=== PATIENT | male | born 1930 | race Caucasian/White ===

== ENCOUNTER 2018-07-07 11:01 | Emergency (ER) | payer OTHER, BC ==
[2018-07-07 11:25] VITALS: BMI 21.7
[2018-07-07] MEDS ORDERED: ASPIRIN 325 MG TABLET PO ONE (12:19)
--- NOTE | 2018-07-07 12:20 | PDOC ---
History of Present Illness - General History Source: Patient Exam Limitations: No Limitations - History of Present Illness Initial Comments: 07/07/18 18:02 Patient is an 88-year-old male with past medical history of a. A. fib, high blood pressure, hyperlipidemia, BPH, who presents to the ER today for belching and chest pain starting at 8 AM. Patient reports eating breakfast as he usually does when he experienced belching after finishing his meal. He also reports chest pain. He states he has never had pain like this before. He states the pain is on his left side. Nothing makes the pain better or worse. Denies cardiac history or stents. Denies fevers, chills, shortness of breath, difficulty breathing, edema, nausea, vomiting and diarrhea. <Khadijah Roberson - Last Filed: 07/07/18 19:09> <Lucinda Soto - Last Filed: 07/07/18 23:07> - General Chief Complaint: Chest Pain Stated Complaint: CHEST PAIN Time Seen by Provider: 07/07/18 12:17 Past History - Travel Traveled outside of the country in the last 30 days: No Close contact w/someone who was outside of country & ill: No - Past Medical History Anemia: Yes Asthma: No Cancer: Yes (COLON) Cardiac Disorders: Yes (A-FIB) CVA: No COPD: No CHF: No Dementia: No Diabetes: Yes (NO MEDS) GI Disorders: Yes (COLON CANCER,DIVERTICULOSIS,GERD.REFLUX,HEMORRHOIDS,HIATAL HERNIA,COLON YASMIN) Disorders: No HTN: Yes Hypercholesterolemia: Yes Liver Disease: No Seizures: No Thyroid Disease: No - Surgical History Abdominal Surgery: Yes (COLON RESECTION) Appendectomy: No Cardiac Surgery: Yes (CARDIAC CATH-10/18/12) Cholecystectomy: No Lung Surgery: No Neurologic Surgery: No Orthopedic Surgery: No - Immunization History Immunization Up to Date: Yes - Suicide/Smoking/Psychosocial Hx Smoking Status: No Smoking History: Never smoked Number of Cigarettes Smoked Daily: 0 Hx Alcohol Use: No Drug/Substance Use Hx: No Substance Use Type: None <Khadijah Roberson - Last Filed: 07/07/18 19:09> <Lucinda Soto - Last Filed: 07/07/18 23:07> - Past Medical History Allergies/Adverse Reactions: Allergies Allergy/AdvReac Type Severity Reaction Status Date / Time No Known Drug Allergies Allergy Verified 10/24/15 07:50 Home Medications: Ambulatory Orders Tamsulosin HCl 0.4 mg PO HS 09/30/12 Metoprolol Tartrate [Lopressor -] 12.5 mg PO BID 08/02/13 Simvastatin [Zocor] 40 mg PO HS 08/04/13 Cholecalciferol (Vitamin D3) [Vitamin D] 2,000 unit PO DAILY 10/15/15 Docusate Sodium [Colace -] 200 mg PO HS 10/15/15 Finasteride [Proscar -] 5 mg PO HS 10/15/15 Omeprazole [Prilosec] 40 mg PO HS 10/15/15 Aspirin [ASA -] 81 mg PO Q2D 10/24/15 Review of Systems - Review of Systems Able to Perform ROS?: Yes Comments:: 07/07/18 12:18 CONSTITUTIONAL: Absent: fever, chills, diaphoresis, generalized weakness, malaise, loss of appetite HEENT: Absent: rhinorrhea, nasal congestion, throat pain, throat swelling, difficulty swallowing, mouth swelling, ear pain, eye pain, visual Changes CARDIOVASCULAR: Present: chest pain, belching Absent: loss of consciousness, palpitations, irregular heart rate, peripheral edema RESPIRATORY: Absent: cough, shortness of breath, dyspnea with exertion, orthopnea, wheezing, stridor, hemoptysis GASTROINTESTINAL: Absent: abdominal pain, abdominal distension, nausea, vomiting, diarrhea, constipation, melena, hematochezia GENITOURINARY: Absent: dysuria, frequency, urgency, hesitancy, hematuria, flank pain, genital pain MUSCULOSKELETAL: Absent: myalgia, arthralgia, joint swelling SKIN: Absent: rash, itching, pallor HEMATOLOGIC/IMMUNOLOGIC: Absent: easy bleeding, easy bruising, lymphadenopathy, frequent infections ENDOCRINE: Absent: unexplained weight gain, unexplained weight loss, heat intolerance, cold intolerance NEUROLOGIC: Absent: headache, focal weakness or paresthesias, dizziness, unsteady gait, seizure, mental status changes, bladder or bowel incontinence PSYCHIATRIC: Absent: anxiety, depression, suicidal or homicidal ideation, hallucinations. Is the patient limited Lebanese proficient: No <Khadijah Roberson - Last Filed: 07/07/18 19:09> *Physical Exam - Vital Signs Last Vital Signs Temp Pulse Resp BP Pulse Ox 98.2 F 70 18 123/66 98 07/07/18 11:23 07/07/18 11:23 07/07/18 11:23 07/07/18 11:23 07/07/18 11:23 - Physical Exam Comments: 07/07/18 12:18 GENERAL: Well developed, well nourished. Awake and alert. No acute distress. HEENT: Normocephalic, atraumatic. PERRLA, EOMI. No conjunctival pallor. Sclera are non- icteric. Moist mucous membranes. Oropharynx is clear. NECK: Supple. Full ROM. No JVD. Carotid pulses 2+ and symmetric, without bruits. No thyromegaly. No lymphadenopathy. CARDIOVASCULAR: Regular rate and rhythm. No murmurs, rubs, or gallops. Distal pulses are 2+ and symmetric. PULMONARY: No evidence of respiratory distress. Lungs clear to auscultation bilaterally. No wheezing, rales or rhonchi. ABDOMINAL: Soft. Non-tender. Non-distended. No rebound or guarding. No organomegaly. Normoactive bowel sounds. MUSCULOSKELETAL Normal range of motion at all joints. No bony deformities or tenderness. No CVA tenderness. EXTREMITIES: No cyanosis. No clubbing. No edema. No calf tenderness. SKIN: Warm and dry. Normal capillary refill. No rashes. No jaundice. NEUROLOGICAL: Alert, awake, appropriate. Cranial nerves 2-12 intact. No deficits to light touch and temperature in face, upper extremities and lower extremities. No motor deficits in the in face, upper extremities and lower extremities. Normoreflexic in the upper and lower extremities. Normal speech. Toes are down- going bilaterally. Gait is normal without ataxia. PSYCHIATRIC: Cooperative. Good eye contact. Appropriate mood and affect. <Khadijah Roberson - Last Filed: 07/07/18 19:09> - Vital Signs Last Vital Signs Temp Pulse Resp BP Pulse Ox 98.2 F 70 18 123/66 98 07/07/18 11:23 07/07/18 11:23 07/07/18 11:23 07/07/18 11:23 07/07/18 11:23 <Lucinda Soto - Last Filed: 07/07/18 23:07> Moderate Sedation - Procedure Monitoring Vital Signs: Procedure Monitoring Vital Signs Temperature 98.2 F 07/07/18 11:23 Pulse Rate 70 07/07/18 11:23 Respiratory Rate 18 07/07/18 11:23 Blood Pressure 123/66 07/07/18 11:23 O2 Sat by Pulse Oximetry (%) 98 07/07/18 11:23 <Khadijah Roberson - Last Filed: 07/07/18 19:09> - Procedure Monitoring Vital Signs: Procedure Monitoring Vital Signs Temperature 98.2 F 07/07/18 11:23 Pulse Rate 70 07/07/18 11:23 Respiratory Rate 18 07/07/18 11:23 Blood Pressure 123/66 07/07/18 11:23 O2 Sat by Pulse Oximetry (%) 98 07/07/18 11:23 <Lucinda Soto - Last Filed: 07/07/18 23:07> Heart Score/ECG Review - History History: Moderately suspicious - Electrocardiogram EKG: Normal - Age Age: >/= 65 - Risk Factors Risk Factors Heart Score: Yes Hx Hypertension Based on the list above the patient has:: 1-2 risk factors - Troponin Troponin: </= normal limit - Score Heart Score - Total: 4 <Khadijah Roberson - Last Filed: 07/07/18 19:09> ED Treatment Course - LABORATORY CBC & Chemistry Diagram: 07/07/18 12:39 07/07/18 12:39 <Khadijah Roberson - Last Filed: 07/07/18 19:09> - LABORATORY CBC & Chemistry Diagram: 07/07/18 12:39 07/07/18 12:39 - ADDITIONAL ORDERS Additional order review: Laboratory Results 07/07/18 07/07/18 12:39 12:39 PT with INR 12.20 INR 1.03 Sodium 141 Potassium 4.7 Chloride 110 H Carbon Dioxide 25 Anion Gap 6 L BUN 39 H Creatinine 1.3 Creat Clearance w eGFR 52.10 Random Glucose 117 H Calcium 9.2 Magnesium 1.7 L Total Bilirubin 0.4 AST 19 ALT 17 Alkaline Phosphatase 98 Creatine Kinase 179 Creatine Kinase Index 3.9 CK-MB (CK-2) 7.0 H Troponin I < 0.02 B-Natriuretic Peptide 734.8 H Total Protein 6.9 Albumin 3.9 07/07/18 12:39 RBC 3.71 L MCV 90.9 MCHC 35.0 RDW 13.4 MPV 8.8 Neutrophils % 82.2 D Lymphocytes % 8.5 D Monocytes % 8.4 Eosinophils % 0.4 D Basophils % 0.5 - Medications Given in the ED: ED Medications Discontinued Medications Generic Name Dose Route Start Last Admin Trade Name Waldemar PRN Reason Stop Dose Admin Al Hydroxide/Mg Hydroxide 30 ml 07/07/18 12:32 07/07/18 12:49 Mylanta Oral Suspension - PO 07/07/18 12:33 30 ml ONCE ONE Administration Aspirin 325 mg 07/07/18 12:19 07/07/18 12:49 Asa - PO 07/07/18 12:20 325 mg ONCE ONE Administration Famotidine/Sodium Chloride 20 mg in 50 mls @ 100 mls/hr 07/07/18 12:32 12:49 Pepcid 20 Mg Premixed Ivpb - IVPB 07/07/18 13:01 100 mls/hr ONCE ONE Administration Sodium Chloride 1,000 mls @ 1,000 mls/hr 07/07/18 14:00 07/07/18 14:17 Normal Saline - IV 07/07/18 14:59 1,000 mls/hr ASDIR STA Administration Morphine Sulfate 2 mg 07/07/18 13:59 07/07/18 14:17 Morphine Injection - IVPUSH 07/07/18 14:00 2 mg ONCE ONE Administration <Lucinda Soto - Last Filed: 07/07/18 23:07> Medical Decision Making - Medical Decision Making 07/07/18 18:03 Patient is an 88-year-old male with past medical history of a. A. fib, high blood pressure, hyperlipidemia, BPH, who presents to the ER today for belching and chest pain starting at 8 AM. -On exam vital signs are stable, patient is afebrile. Regular rate and rhythm on cardiac exam S1-S2 present no murmurs rubs or gallops. Lungs sounds are clear and equal bilaterally. -EKG: Rate 72 bpm, normal sinus rhythm with multiple PVCs. Normal axis, normal intervals. No acute ST-T wave changes. -Chest pain workup initiated. -First troponin is negative. -Given belching and chest pain patient was also sent for CT to rule out dissection. -Creatinine noted to be 1.3. Will hydrate the patient prior and after exam. -Second troponin ordered. -Patient pending CTA results. -Patient reports some relief of symptoms after Pepcid, Zofran and morphine. -Plan for admission; PCP, Dr. Gabriella Bernal 07/07/18 18:55 CTA results given [address] Dr[address] Hardy from radiology; pt with intramural hematoma to the descending aorta. No answer from CT surgery Currently hemodynamically stable. Pt reports relief of pain after nitro. Call placed to [facility] transfer center for CT surgery 07/07/18 19:09 Pt accepted by Cardiac surgery Dr. Cooper. Pt to go to ICU at [place] <Khadijah Roberson - Last Filed: 07/07/18 19:09> - Medical Decision Making 07/07/18 17:02 pt will be hydrated after ct with oral hydration <Lucinda Soto - Last Filed: 07/07/18 23:07> *DC/Admit/Observation/Transfer <Khadijah Roberson - Last Filed: 07/07/18 19:09> - Transfer to Acute Care Facility Receiving Facility: [facility]. <Lucinda Soto - Last Filed: 07/07/18 23:07> Diagnosis at time of Disposition: Intramural aortic hematoma - Discharge Dispostion Disposition: TRANSFER ACUTE CARE/OTHER HOSP - Referrals Referrals: Gabriella Bernal MD [Primary Care Provider] - - Patient Instructions - Post Discharge Activity
[2018-07-07] MEDS ORDERED: MAG HYDROX/AL HYDROX/SIMETH 30 ML UNIT-DOSE CUP PO ONE (12:32)
[2018-07-07] MEDS ORDERED: FAMOTIDINE 20 MG/50 ML IVPB 20 MG/50 ML MG IVPB ONE ×2 (12:32→12:45)
[2018-07-07] MEDS ORDERED: ASPIRIN 325 MG ENTERIC COATED TABLET (FP) ONE (12:44)
[2018-07-07] MEDS ORDERED: MAG HYDROX/AL HYDROX/SIMETH 30 ML UNIT-DOSE CUP ONE (12:45)
[2018-07-07 12:52] LABS: BASO % 0.5 % (0-2.0); EOS % 0.4 % (0-4.5); HEMATOCRIT 33.7 % (35.4-49); HEMOGLOBIN 11.8 GM/dL (11.7-16.9); LYMPH % 8.5 % (8-40); MCH 31.8 pg (25.7-33.7); MEAN CELL VOLUME 90.9 fl (80-96); MEAN PLT VOLUME 8.8 fl (7.5-11.1); MONO % 8.4 % (3.8-10.2); NEUT % 82.2 % (42.8-82.8); PLATELET COUNT 140 K/MM3 (134-434); RBC 3.71 M/mm3 (4.00-5.60); RDW 13.4 % (11.9-15.9); WHITE BLOOD COUNT 8.8 K/mm3 (4.0-10.0)
[2018-07-07 13:21] LABS: INR 1.03 (0.83-1.09); PROTHROMBIN TIME (PATIENT) 12.2 SEC (9.7-13.0)
[2018-07-07 13:24] LABS: ALBUMIN 3.9 g/dl (3.4-5.0); ALK PHOS 98 U/L (45-117); ANION GAP 6 MMOL/L (8-16); BILIRUBIN,TOTAL 0.4 mg/dL (0.2-1); BLOOD UREA NITROGEN 39 mg/dL (7-18); CALCIUM 9.2 mg/dL (8.5-10.1); CHLORIDE 110 mmol/L (98-107); CO2 25 mmol/L (21-32); CREATININE 1.3 mg/dL (0.55-1.3); GLUCOSE,RANDOM 117 mg/dL (74-106); MAGNESIUM 1.7 mg/dL (1.8-2.4); N-TERMINAL BNP 734.8 pg/ml (5-450); POTASSIUM 4.7 mmol/L (3.5-5.1); SGOT/AST 19 U/L (15-37); SGPT/ALT 17 U/L (13-61); SODIUM 141 mmol/L (136-145); TOT PROT 6.9 g/dl (6.4-8.2)
--- NOTE | 2018-07-07 13:46 | EKG ---
Test Reason : Blood Pressure : / mmHG Vent. Rate : 072 BPM Atrial Rate : 072 BPM P-R Int : 168 ms QRS Dur : 092 ms QT Int : 390 ms P-R-T Axes : 064 057 069 degrees QTc Int : 427 ms POOR DATA QUALITY, INTERPRETATION MAY BE ADVERSELY AFFECTED SINUS RHYTHM WITH PREMATURE ATRIAL COMPLEXES MINIMAL VOLTAGE CRITERIA FOR LVH, MAY BE NORMAL VARIANT BORDERLINE ECG WHEN COMPARED WITH ECG OF 15-OCT-2015 08:09, PREMATURE ATRIAL COMPLEXES ARE NOW PRESENT Confirmed by ISSAC GÓMEZ, NEISHA ([id number]) on 07/07/2018 1:46:24 PM Referred By: Confirmed By:NEISHA DAVENPORT MD
[2018-07-07] MEDS ORDERED: morphine CARPU-JECT 2 MG/1 ML DISP.SYRIN IVPUSH ONE ×2 (13:59→16:40)
[2018-07-07] MEDS ORDERED: SODIUM CHLORIDE 1,000 ML IV STA (14:00)
[2018-07-07] MEDS ORDERED: MORPHINE SULFATE 2 MG/ML VIAL ONE ×2 (14:11→17:56)
[2018-07-07] MEDS ORDERED: NITROGLYCERIN SUBLINGUAL 1/200 0.3 MG BTL SL ONE (16:40)
[2018-07-07] MEDS ORDERED: NITROGLYCERIN SUBLINGUAL 1/150 0.4 MG TAB ONE (17:56)
--- NOTE | 2018-07-07 18:51 | PDOC ---
*Physical Exam - Vital Signs Last Vital Signs Temp Pulse Resp BP Pulse Ox 98.2 F 70 18 123/66 98 07/07/18 11:23 07/07/18 11:23 07/07/18 11:23 07/07/18 11:23 07/07/18 11:23 ED Treatment Course - LABORATORY CBC & Chemistry Diagram: 07/07/18 12:39 07/07/18 12:39 - ADDITIONAL ORDERS Additional order review: Laboratory Results 07/07/18 07/07/18 12:39 12:39 PT with INR 12.20 INR 1.03 Sodium 141 Potassium 4.7 Chloride 110 H Carbon Dioxide 25 Anion Gap 6 L BUN 39 H Creatinine 1.3 Creat Clearance w eGFR 52.10 Random Glucose 117 H Calcium 9.2 Magnesium 1.7 L Total Bilirubin 0.4 AST 19 ALT 17 Alkaline Phosphatase 98 Creatine Kinase 179 Creatine Kinase Index 3.9 CK-MB (CK-2) 7.0 H Troponin I < 0.02 B-Natriuretic Peptide 734.8 H Total Protein 6.9 Albumin 3.9 07/07/18 12:39 RBC 3.71 L MCV 90.9 MCHC 35.0 RDW 13.4 MPV 8.8 Neutrophils % 82.2 D Lymphocytes % 8.5 D Monocytes % 8.4 Eosinophils % 0.4 D Basophils % 0.5 - RADIOLOGY Radiology Studies Ordered: Category Date Time Status ABDOMEN & PELVIS CT WITH CONTR [CT] Stat CT Scan 07/07/18 17:02 Taken - Medications Given in the ED: ED Medications Discontinued Medications Generic Name Dose Route Start Last Admin Trade Name Freq PRN Reason Stop Dose Admin Al Hydroxide/Mg Hydroxide 30 ml 07/07/18 12:32 07/07/18 12:49 Mylanta Oral Suspension - PO 07/07/18 12:33 30 ml ONCE ONE Administration Aspirin 325 mg 07/07/18 12:19 07/07/18 12:49 Asa - PO 07/07/18 12:20 325 mg ONCE ONE Administration Famotidine/Sodium Chloride 20 mg in 50 mls @ 100 mls/hr 07/07/18 12:32 12:49 Pepcid 20 Mg Premixed Ivpb - IVPB 07/07/18 13:01 100 mls/hr ONCE ONE Administration Sodium Chloride 1,000 mls @ 1,000 mls/hr 07/07/18 14:00 07/07/18 14:17 Normal Saline - IV 07/07/18 14:59 1,000 mls/hr ASDIR STA Administration Morphine Sulfate 2 mg 07/07/18 13:59 07/07/18 14:17 Morphine Injection - IVPUSH 07/07/18 14:00 2 mg ONCE ONE Administration Morphine Sulfate 2 mg 07/07/18 16:40 07/07/18 17:45 Morphine Injection - IVPUSH 07/07/18 16:41 2 mg ONCE ONE Administration Nitroglycerin 0.3 mg 07/07/18 16:40 07/07/18 17:45 Nitrostat - SL 07/07/18 16:41 0.3 mg ONCE ONE Administration Medical Decision Making - Medical Decision Making 07/07/18 18:49 88yo male with cp and belching today -cp free currently labs reviewed discussed ct findings with Radiology intramural hematoma to the aorta call palced to dr. Thomason - left message call placed to [facility] to discuss with cardio-thoracic surgery 07/07/18 19:15 pt accepted in transfer to [facility] to the CCU under cardio-thoracic surgery *DC/Admit/Observation/Transfer Diagnosis at time of Disposition: Intramural aortic hematoma - Discharge Dispostion Disposition: TRANSFER ACUTE CARE/OTHER HOSP - Referrals Referrals: Gabriella Bernal MD [Primary Care Provider] - - Patient Instructions - Post Discharge Activity
[2018-07-07 18:54] VITALS: TEMP 99.4
[2018-07-07] MEDS ORDERED: LABETALOL HCL 5 MG/1 ML (100MG/20 ML VIAL) IVPUSH ONE (19:09)
[2018-07-07 19:51] VITALS: BP 158/65; PULSE 63
== END 2018-07-07 20:24 | disposition short-term general hospital (02) ==
LOC: JER 11:01
PROC: 3E0337Z Introduction of Electrolytic and Water Balance Substance into Peripheral Vein, Percutaneous Approach (ICD-10-PCS; principal; 2018-07-07)
PROC: 3E033GC Introduction of Other Therapeutic Substance into Peripheral Vein, Percutaneous Approach (ICD-10-PCS; 2018-07-07)
PROC: 3E033NZ Introduction of Analgesics, Hypnotics, Sedatives into Peripheral Vein, Percutaneous Approach (ICD-10-PCS; 2018-07-07)
PROC: 3E033NZ Introduction of Analgesics, Hypnotics, Sedatives into Peripheral Vein, Percutaneous Approach (ICD-10-PCS; 2018-07-07)
DX: I71.00 Dissection of unspecified site of aorta (principal); I10 Essential (primary) hypertension; E11.9 Type 2 diabetes mellitus without complications; I48.91 Unspecified atrial fibrillation; N40.0 Benign prostatic hyperplasia without lower urinary tract symptoms; Z79.82 Long term (current) use of aspirin; Z87.19 Personal history of other diseases of the digestive system; Z98.61 Coronary angioplasty status
CPT/HCPCS: 36415; 71046-TC-FY; 71275-TC; 74177-TC; 80053; 82550; 82553; 83735; 83880; 84484; 85025; 85610; 93005; 93010; 96361; 96365; 96375; 96376; 99284-25; J7030

== ENCOUNTER 2018-08-05 21:24 | Inpatient (IN) | payer OTHER, BC ==
[2018-08-05] MEDS ORDERED: ACETAMINOPHEN 1000 MG/100 ML VIAL (NON FORMULARY) IVPB ONE (22:42)
--- NOTE | 2018-08-05 23:17 | PDOC ---
Attending Attestation - HPI HPI: 08/06/18 00:19 The patient is an 88 year old with a PMH of metastatic colon CA s/p resection, CAD s/p cath, HLD, HTN, DM, aortic mural hematoma, and BPH sent in from [facility] for hematuria after having his vazquez removed. Patient had a fever rectally in the ER. Denies fever, chills, N/V/D/C, or blood in stool. Allergies: NKDA Social: denies toxic habits. - Physicial Exam PE: 08/06/18 00:19 Constitutional: Awake, alert, oriented. No acute distress. Cardiovascular: (+) Tachycardic. Regular rhythm. S1, S2 regular. Distal pulses are 2+ and symmetric. Pulmonary/Chest: No evidence of respiratory distress. Clear to auscultation bilaterally No wheezing, rales or rhonchi. Abdominal: Soft. There is no tenderness. No rebound, guarding or rigidity. No organomegaly. No palpable masses. Good bowel sounds. (+) Distended bladder. : (+) Blood at the meatus. No laceration. Musculoskeletal: No edema. No cyanosis. No clubbing. Full range of motion in all extremities. Nocalf tenderness. Radial/pedal pulses are intact and 2+ bilaterally Skin: (+) Hot to touch. Neurological: Alert and oriented to person, place, and time. Cranial nerves II -XII are grossly intact. Normal speech. Strength is grossly symmetric. No sensory deficits. Psychiatric: Good eye contact. Normal interaction, affect and behavior. - Medical Decision Making <Kayla Chambers - Last Filed: 08/06/18 00:25> - Resident Resident Name: Antonia Miller - ED Attending Attestation I have performed the following: I have examined & evaluated the patient, The case was reviewed & discussed with the resident, I agree w/resident's findings & plan, Exceptions are as noted - Medical Decision Making 08/05/18 23:17 I, Dr. Lucinda Soto, DO, attest that this document has been prepared under my direction and personally reviewed by me in its entirety. I further attest, that it accurately reflects all work, treatment, procedures and medical decision -making performed by me. 08/05/18 23:57 a/p: 88yo male with hematuria - vazquez removed yesterday, fever rectally -concern for UTI -will replace vazquez, palpable bladder on pe -labs, cultures -tylenol for the fever -will start abx -will need admission -pt from [facility] -pt denies cp/sob -no n/v/d -pt with blood leaking from the penis on exam 08/06/18 00:14 vazquez placed and irrigated pt with UTI on labs, abx ordered 08/06/18 00:31 case discussed with AMANDA Campos who accepts pt to service <Lucinda Soto - Last Filed: 08/06/18 00:31> Heart Score/ECG Review - ECG Intrepretation Comment:: 08/06/18 00:15 sinus tach at 117, nl axis, nl interval, no acute st/t wave findings <Lucinda Soto - Last Filed: 08/06/18 00:31>
[2018-08-05 23:18] LABS: BASO % 0.5 % (0-2.0); EOS % 0.9 % (0-4.5); HEMATOCRIT 30.4 % (35.4-49); HEMOGLOBIN 10.4 GM/dL (11.7-16.9); LYMPH % 6.2 % (8-40); MCH 31.5 pg (25.7-33.7); MCHC 34.3 g/dl (32.0-35.9); MEAN CELL VOLUME 91.7 fl (80-96); MEAN PLT VOLUME 8.2 fl (7.5-11.1); NEUT % 86.4 % (42.8-82.8); PLATELET COUNT 207 K/MM3 (134-434); RBC 3.31 M/mm3 (4.00-5.60); RDW 14.1 % (11.9-15.9); WHITE BLOOD COUNT 9.7 K/mm3 (4.0-10.0)
[2018-08-05 23:22] LABS: VENOUS PC02 36.4 mmHg (38-52); VENOUS PH 7.44 (7.32-7.42); VENOUS PO2 46.7 mmHg (28-48)
[2018-08-05 23:31] LABS: INR 1.13 (0.83-1.09); PROTHROMBIN TIME (PATIENT) 13.4 SEC (9.7-13.0)
[2018-08-05 23:36] LABS: URINE APPEARANCE SLCLOUDY; URINE BILIRUBIN NEGATIVE (<2.0 mg/dL); URINE COLOR YELLOW; URINE GLUCOSE (UA) NEGATIVE (NEGATIVE); URINE KETONE NEGATIVE (NEGATIVE); URINE LEUK ESTERASE 1+ (NEGATIVE); URINE NITRITE NEGATIVE (NEGATIVE); URINE PROTEIN 1+ (NEGATIVE)
[2018-08-05 23:49] LABS: EPI CELLS RARE /HPF (FEW); YEAST RARE
[2018-08-05] MEDS ORDERED: CEFTRIAXONE 1 GM in DEXTROSE 5%-WATER - 100 ML IVPB ONE (23:53)
[2018-08-05] MEDS ORDERED: CEFTRIAXONE 1 GM/50 ML BAG ONE (23:58)
--- NOTE | 2018-08-06 00:13 | PDOC ---
History of Present Illness - General Chief Complaint: Hematuria Stated Complaint: BLOOD IN URINE Time Seen by Provider: 08/05/18 21:58 History Source: Patient Exam Limitations: No Limitations - History of Present Illness Initial Comments: 08/06/18 00:11 Pt is an 88yo M with PMH of Metastatic Colon Ca s/p resection, CAD s/p cath, HLD , HTN, DM, Aortic Mural Hematoma, BPH (treated medically at [facility]), presenting to ED from [facility] for hematuria after vazquez removal. Pt states he had a vazquez placed and it was removed today. He endorses slight abdominal distension and discomfort. Denies fever, chills, n/v/d, blood in stool, headaches, cough, numbness/tingling. PMH: see hpi PSH: see hpi Meds: see med rec Allergies: nkda Social: denies Past History - Past Medical History Allergies/Adverse Reactions: Allergies Allergy/AdvReac Type Severity Reaction Status Date / Time No Known Drug Allergies Allergy Verified 08/05/18 21:40 Home Medications: Ambulatory Orders Tamsulosin HCl 0.4 mg PO HS 09/30/12 Metoprolol Tartrate [Lopressor -] 12.5 mg PO BID 08/02/13 Simvastatin [Zocor] 40 mg PO HS 08/04/13 Cholecalciferol (Vitamin D3) [Vitamin D] 2,000 unit PO DAILY 10/15/15 Docusate Sodium [Colace -] 200 mg PO HS 10/15/15 Finasteride [Proscar -] 5 mg PO HS 10/15/15 Omeprazole [Prilosec] 40 mg PO HS 10/15/15 Aspirin [ASA -] 81 mg PO Q2D 10/24/15 Anemia: Yes Asthma: No Cancer: Yes (COLON) Cardiac Disorders: Yes (A-FIB) CVA: No COPD: No CHF: No Dementia: No Diabetes: Yes (NO MEDS) GI Disorders: Yes (COLON CANCER,DIVERTICULOSIS,GERD.REFLUX,HEMORRHOIDS,HIATAL HERNIA,COLON YASMIN) Disorders: No HTN: Yes Hypercholesterolemia: Yes Liver Disease: No Seizures: No Thyroid Disease: No - Surgical History Abdominal Surgery: Yes (COLON RESECTION) Appendectomy: No Cardiac Surgery: Yes (CARDIAC CATH-10/18/12) Cholecystectomy: No Lung Surgery: No Neurologic Surgery: No Orthopedic Surgery: No - Immunization History Immunization Up to Date: Yes - Suicide/Smoking/Psychosocial Hx Smoking Status: No Smoking History: Never smoked Have you smoked in the past 12 months: No Number of Cigarettes Smoked Daily: 0 Information on smoking cessation initiated: No Hx Alcohol Use: No Drug/Substance Use Hx: No Substance Use Type: None *Physical Exam - Vital Signs Last Vital Signs Temp Pulse Resp BP Pulse Ox 97.2 F L 106 H 18 167/83 93 L 08/05/18 21:40 08/05/18 21:40 08/05/18 21:40 08/05/18 21:40 08/05/18 21:40 Moderate Sedation - Procedure Monitoring Vital Signs: Procedure Monitoring Vital Signs Temperature 97.2 F L 08/05/18 21:40 Pulse Rate 106 H 08/05/18 21:40 Respiratory Rate 18 08/05/18 21:40 Blood Pressure 167/83 08/05/18 21:40 O2 Sat by Pulse Oximetry (%) 93 L 08/05/18 21:40 ED Treatment Course - LABORATORY CBC & Chemistry Diagram: 08/06/18 08:30 08/06/18 08:30 - ADDITIONAL ORDERS Additional order review: Laboratory Results 08/05/18 08/05/18 08/05/18 23:00 23:00 22:45 PT with INR INR PTT (Actin FS) 28.0 VBG pH 7.44 H POC VBG pCO2 36.4 L POC VBG pO2 46.7 VBG HCO3 24.5 L* VBG O2 Sat (Maty) 81.2 H* VBG Base Excess 1.0 Urine Color Yellow Urine Appearance Slcloudy Urine pH 5.0 Ur Specific [place] 1.012 Urine Protein 1+ H Urine Glucose (UA) Negative Urine Ketones Negative Urine Blood 3+ H Urine Nitrite Negative Urine Bilirubin Negative Urine Urobilinogen 2.0 Ur Leukocyte Esterase 1+ H Urine WBC (Auto) 73 Urine RBC (Auto) 306 Ur Epithelial Cells Rare Urine Yeast Rare 08/05/18 22:45 PT with INR 13.40 H INR 1.13 H PTT (Actin FS) VBG pH POC VBG pCO2 POC VBG pO2 VBG HCO3 VBG O2 Sat (Maty) VBG Base Excess Urine Color Urine Appearance Urine pH Ur Specific [place] Urine Protein Urine Glucose (UA) Urine Ketones Urine Blood Urine Nitrite Urine Bilirubin Urine Urobilinogen Ur Leukocyte Esterase Urine WBC (Auto) Urine RBC (Auto) Ur Epithelial Cells Urine Yeast 08/05/18 22:45 RBC 3.31 L MCV 91.7 MCHC 34.3 RDW 14.1 MPV 8.2 Neutrophils % 86.4 H Lymphocytes % 6.2 L D Monocytes % 6.0 Eosinophils % 0.9 D Basophils % 0.5 - RADIOLOGY Radiology Studies Ordered: Category Date Time Status CHEST X-RAY PORTABLE* [RAD] Stat Radiology 08/05/18 22:41 Ordered - Medications Given in the ED: ED Medications Discontinued Medications Generic Name Dose Route Start Last Admin Trade Name Waldemar PRN Reason Stop Dose Admin Acetaminophen 1,000 mg 08/05/18 22:42 08/05/18 23:37 Ofirmev Injection - IVPB 08/05/18 22:43 1,000 mg ONCE ONE Administration Medical Decision Making - Medical Decision Making 08/06/18 00:29 Pt is an 88yo M with PMH of Metastatic Colon Ca s/p resection, CAD s/p cath, HLD , HTN, DM, Aortic Mural Hematoma, BPH (treated medically at [facility]), presenting to ED from [facility] for hematuria after vazquez removal. Pt states he had a vazquez placed and it was removed today. He endorses slight abdominal distension and discomfort. Denies fever, chills, n/v/d, blood in stool, headaches, cough, numbness/tingling. Vitals: tachy, febrile (rectal temp 102.3) PE: warm to the touch, distended bladder up to umbilicus, gross hematuria, normal genitalia Ddx includes but not limited to UTI due to obstruction v.vazquez, pyelonpehritis, prostatitis, urinary retention, other infectious causes -sepsis workup sent -cxr, ekg -will replace vazquez -IV tylenol Vazquez insertion difficult, placement confirmed by US. Gross blood initially however cleared up. Abdominal distention decreased. Pt feeling better. Labs significant for UA wit blood, LE and WBC. Will give Rocephin. Chemistries pending. No white count. lactate normal. Cr 1.6, K 5.5 *DC/Admit/Observation/Transfer Diagnosis at time of Disposition: Hyperkalemia Sepsis Qualifiers: Sepsis type: sepsis due to unspecified organism Qualified Code(s): A41.9 - Sepsis, unspecified organism - Referrals - Patient Instructions - Post Discharge Activity
--- NOTE | 2018-08-06 00:44 | HP ---
Admitting History and Physical - Primary Care Physician PCP: Reynaldo Lynch - Admission Chief Complaint: Hematuria History of Present Illness: This is a 88 y/o man from [facility] with a PMHx of Colon Ca s/p resection, BPH, HTN, HLD, KOREY, GERD, Hernia, Migraine, Dysphagia. Who presents to the ED with hematuria after vazquez removal. Pt states he had a vazquez placed and it was removed yesterday. He endorses slight abdominal distension and discomfort. Denies fever, chills, cough, HALL, SOB, CP, palpitations, N/V/D, melena, hematochezia History Source: Patient, Transfer Record Limitations to Obtaining History: No Limitations - Past Medical History [employer]PING [employer]: Yes: Migraine Cardiovascular: Yes: AFIB, HTN, Hyperlipdemia Gastrointestinal: Yes: Cancer (Colon), GERD, Other (Hernia) Renal/: Yes: BPH Heme/Onc: Yes: Anemia - Past Surgical History Additional Past Surgical History: colon resection - Smoking History Smoking history: Never smoked Have you smoked in the past 12 months: No Aproximately how many cigarettes per day: 0 - Alcohol/Substance Use Hx Alcohol Use: No History of Substance Use: reports: None - Social History Usual Living Arrangement: Yes: Skilled Nursing ADL: Support Services History of Recent Travel: No Home Medications - Allergies Allergies/Adverse Reactions: Allergies Allergy/AdvReac Type Severity Reaction Status Date / Time No Known Drug Allergies Allergy Verified 08/05/18 21:40 - Home Medications Home Medications: Ambulatory Orders Tamsulosin HCl 0.4 mg PO HS 09/30/12 Metoprolol Tartrate [Lopressor -] 12.5 mg PO BID 08/02/13 Simvastatin [Zocor] 40 mg PO HS 08/04/13 Cholecalciferol (Vitamin D3) [Vitamin D] 2,000 unit PO DAILY 10/15/15 Docusate Sodium [Colace -] 200 mg PO HS 10/15/15 Finasteride [Proscar -] 5 mg PO HS 10/15/15 Omeprazole [Prilosec] 40 mg PO HS 10/15/15 Aspirin [ASA -] 81 mg PO Q2D 10/24/15 Family Disease History - Family Disease History Family History: Unable to Obtain Review of Systems - Review of Systems Constitutional: reports: No Symptoms Eyes: reports: No Symptoms HENT: reports: No Symptoms Neck: reports: No Symptoms Cardiovascular: reports: No Symptoms Respiratory: reports: No Symptoms Gastrointestinal: reports: Abdominal Pain Genitourinary: reports: Hematuria Breasts: reports: No Symptoms Reported Musculoskeletal: reports: No Symptoms Integumentary: reports: No Symptoms Neurological: reports: No Symptoms Endocrine: reports: No Symptoms Hematology/Lymphatic: reports: No Symptoms Psychiatric: reports: No Symptoms Pain Intensity: 3 Physical Examination Vital Signs: Vital Signs Temperature 97.2 F L 08/05/18 21:40 Pulse Rate 106 H 08/05/18 21:40 Respiratory Rate 18 08/05/18 21:40 Blood Pressure 167/83 08/05/18 21:40 O2 Sat by Pulse Oximetry (%) 93 L 08/05/18 21:40 Constitutional: Yes: Well Nourished, No Distress, Calm Eyes: Yes: WNL, Conjunctiva Clear, EOM Intact, PERRL HENT: Yes: WNL, Atraumatic, Normocephalic Neck: Yes: WNL, Supple, Trachea Midline Cardiovascular: Yes: WNL, Regular Rate and Rhythm, S1, S2 Respiratory: Yes: WNL, Regular, CTA Bilaterally Gastrointestinal: Yes: Normal Bowel Sounds, Soft ...Rectal Exam: Yes: Deferred Renal/: Yes: Vazquez Present Breast(s): Yes: WNL Musculoskeletal: Yes: WNL Extremities: Yes: WNL Edema: No Neurological: Yes: Alert, Confusion, Cran Nerves II-XII Intact ...Motor Strength: WNL Psychiatric: Yes: WNL, Alert, Oriented Labs: CBC, BMP 08/05/18 22:45 Laboratory Results - last 24 hr 08/05/18 08/05/18 08/05/18 22:45 22:45 22:45 WBC 9.7 RBC 3.31 L Hgb 10.4 L Hct 30.4 L MCV 91.7 MCH 31.5 MCHC 34.3 RDW 14.1 Plt Count 207 D MPV 8.2 Absolute Neuts (auto) 8.4 H Neutrophils % 86.4 H Lymphocytes % 6.2 L D Monocytes % 6.0 Eosinophils % 0.9 D Basophils % 0.5 Nucleated RBC % 0 PT with INR 13.40 H INR 1.13 H PTT (Actin FS) VBG pH POC VBG pCO2 POC VBG pO2 VBG HCO3 VBG O2 Sat (Maty) VBG Base Excess Sodium 136 Potassium 5.5 H Chloride 105 Carbon Dioxide 25 Anion Gap 6 L BUN 40 H Creatinine 1.6 H Creat Clearance w eGFR 41.00 POC Glucometer Random Glucose 117 H Lactic Acid Calcium 8.2 L Total Bilirubin 0.4 AST 19 ALT 24 Alkaline Phosphatase 81 Troponin I Total Protein 6.5 Albumin 2.7 L Urine Color Urine Appearance Urine pH Ur Specific [place] Urine Protein Urine Glucose (UA) Urine Ketones Urine Blood Urine Nitrite Urine Bilirubin Urine Urobilinogen Ur Leukocyte Esterase Urine WBC (Auto) Urine RBC (Auto) Ur Epithelial Cells Urine Bacteria Hyaline Casts Urine Yeast 08/05/18 08/05/18 08/05/18 22:45 22:45 23:00 WBC RBC Hgb Hct MCV MCH MCHC RDW Plt Count MPV Absolute Neuts (auto) Neutrophils % Lymphocytes % Monocytes % Eosinophils % Basophils % Nucleated RBC % PT with INR INR PTT (Actin FS) 28.0 VBG pH 7.44 H POC VBG pCO2 36.4 L POC VBG pO2 46.7 VBG HCO3 24.5 L* VBG O2 Sat (Maty) 81.2 H* VBG Base Excess 1.0 Sodium Potassium Chloride Carbon Dioxide Anion Gap BUN Creatinine Creat Clearance w eGFR POC Glucometer Random Glucose Lactic Acid Calcium Total Bilirubin AST ALT Alkaline Phosphatase Troponin I < 0.02 Total Protein Albumin Urine Color Urine Appearance Urine pH Ur Specific [place] Urine Protein Urine Glucose (UA) Urine Ketones Urine Blood Urine Nitrite Urine Bilirubin Urine Urobilinogen Ur Leukocyte Esterase Urine WBC (Auto) Urine RBC (Auto) Ur Epithelial Cells Urine Bacteria Hyaline Casts Urine Yeast 08/05/18 08/06/18 08/06/18 23:00 00:05 01:00 WBC RBC Hgb Hct MCV MCH MCHC RDW Plt Count MPV Absolute Neuts (auto) Neutrophils % Lymphocytes % Monocytes % Eosinophils % Basophils % Nucleated RBC % PT with INR INR PTT (Actin FS) VBG pH POC VBG pCO2 POC VBG pO2 VBG HCO3 VBG O2 Sat (Maty) VBG Base Excess Sodium Potassium Chloride Carbon Dioxide Anion Gap BUN Creatinine Creat Clearance w eGFR POC Glucometer Random Glucose Lactic Acid 0.8 Calcium Total Bilirubin AST ALT Alkaline Phosphatase Troponin I Total Protein Albumin Urine Color Yellow Yellow Urine Appearance Slcloudy Slcloudy Urine pH 5.0 5.0 Ur Specific [place] 1.012 1.012 Urine Protein 1+ H 1+ H Urine Glucose (UA) Negative Negative Urine Ketones Negative Negative Urine Blood 3+ H 3+ H Urine Nitrite Negative Negative Urine Bilirubin Negative Negative Urine Urobilinogen 2.0 2.0 Ur Leukocyte Esterase 1+ H 2+ H Urine WBC (Auto) 73 35 Urine RBC (Auto) 306 32 Ur Epithelial Cells Rare Rare Urine Bacteria Rare Hyaline Casts 3 Urine Yeast Rare Few 08/06/18 08/06/18 02:47 03:03 WBC RBC Hgb Hct MCV MCH MCHC RDW Plt Count MPV Absolute Neuts (auto) Neutrophils % Lymphocytes % Monocytes % Eosinophils % Basophils % Nucleated RBC % PT with INR INR PTT (Actin FS) VBG pH POC VBG pCO2 POC VBG pO2 VBG HCO3 VBG O2 Sat (Maty) VBG Base Excess Sodium Potassium Chloride Carbon Dioxide Anion Gap BUN Creatinine Creat Clearance w eGFR POC Glucometer 130 Random Glucose Lactic Acid 0.7 Calcium Total Bilirubin AST ALT Alkaline Phosphatase Troponin I Total Protein Albumin Urine Color Urine Appearance Urine pH Ur Specific [place] Urine Protein Urine Glucose (UA) Urine Ketones Urine Blood Urine Nitrite Urine Bilirubin Urine Urobilinogen Ur Leukocyte Esterase Urine WBC (Auto) Urine RBC (Auto) Ur Epithelial Cells Urine Bacteria Hyaline Casts Urine Yeast Intake & Output 08/03/18 08/04/18 08/05/18 08/06/18 23:59 23:59 23:59 23:59 Output Total 1450 Balance -1450 Weight 72.575 kg Imaging - Results Chest X-ray: Image Reviewed Problem List - Problems (1) Hematuria Code(s): R31.9 - HEMATURIA, UNSPECIFIED (2) BPH (benign prostatic hyperplasia) Code(s): N40.0 - BENIGN PROSTATIC HYPERPLASIA WITHOUT LOWER URINRY TRACT SYMP (3) HTN (hypertension) Code(s): I10 - ESSENTIAL (PRIMARY) HYPERTENSION (4) HLD (hyperlipidemia) Code(s): E78.5 - HYPERLIPIDEMIA, UNSPECIFIED (5) KOREY (iron deficiency anemia) Code(s): D50.9 - IRON DEFICIENCY ANEMIA, UNSPECIFIED Assessment/Plan This is a 88 y/o man admitted for PMHx of Colon Ca s/p resection, BPH, HTN, HLD , GERD, KOREY, Migraine, Dysphagia. Admitted for Urinary Retention, Hematuria for further evaluation of their emergent condition. Plan: Admit to M/S 1. : Urinary Retention, Hematuria, BPH Likely secondary to BPH Vazquez placed in ED UA: +RBCs, +1-2 leukocyte esterase Ceftriaxone given in ED, will continue Vazquez Care Appreciate Urology consult Monitor INOs Monitor CBC, BMP Monitor vitals Continue Flomax 2. CARD: HTN, HLD stable EKG-pending Continue home meds Hold Asa Monitor BMP Monitor renal function 3. GI: GERD Continue PPI 4. Neuro: Migraine stable no acute flare Continue home meds FEN Replete lytes prn Low Na Chopped (Dysphagia) Diet with Honey Thick Liquids DVT ppx OOB SCDs Hold AC secondary to Hematuria Code Status: Full Code Dispo: Requires Inpatient Care Visit type - Emergency Visit Emergency Visit: Yes ED Registration Date: 08/05/18 Care time: The patient presented to the Emergency Department on the above date and was hospitalized for further evaluation of their emergent condition. - New Patient This patient is new to me today: Yes Date on this admission: 08/06/18 - Critical Care Critical Care patient: No
[2018-08-06 01:52] LABS: URINE APPEARANCE SLCLOUDY; URINE BILIRUBIN NEGATIVE (<2.0 mg/dL); URINE COLOR YELLOW; URINE GLUCOSE (UA) NEGATIVE (NEGATIVE); URINE KETONE NEGATIVE (NEGATIVE); URINE LEUK ESTERASE 2+ (NEGATIVE); URINE NITRITE NEGATIVE (NEGATIVE); URINE PROTEIN 1+ (NEGATIVE)
[2018-08-06 02:06] LABS: EPI CELLS RARE /HPF (FEW); URINE BACTERIA RARE /hpf (NONE SEEN); URINE HYALINE CAST 3 /lpf; YEAST FEW
[2018-08-06 02:37] LABS: ALBUMIN 2.7 g/dl (3.4-5.0); ALK PHOS 81 U/L (45-117); ANION GAP 6 MMOL/L (8-16); BILIRUBIN,TOTAL 0.4 mg/dL (0.2-1); BLOOD UREA NITROGEN 40 mg/dL (7-18); CALCIUM 8.2 mg/dL (8.5-10.1); CHLORIDE 105 mmol/L (98-107); CO2 25 mmol/L (21-32); CREATININE 1.6 mg/dL (0.55-1.3); GLUCOSE,RANDOM 117 mg/dL (74-106); POTASSIUM 5.5 mmol/L (3.5-5.1); SGOT/AST 19 U/L (15-37); SGPT/ALT 24 U/L (13-61); SODIUM 136 mmol/L (136-145); TOT PROT 6.5 g/dl (6.4-8.2)
[2018-08-06] MEDS ORDERED: SODIUM POLYSTYRENE SULFONATE 15 GM/60 ML BOTTLE PO ONE (08:03)
[2018-08-06 09:22] LABS: BASO % 0.4 % (0-2.0); EOS % 1.9 % (0-4.5); HEMATOCRIT 28.4 % (35.4-49); HEMOGLOBIN 9.7 GM/dL (11.7-16.9); LYMPH % 6.8 % (8-40); MCH 31.2 pg (25.7-33.7); MCHC 33.9 g/dl (32.0-35.9); MEAN CELL VOLUME 91.9 fl (80-96); MEAN PLT VOLUME 8.3 fl (7.5-11.1); NEUT % 84.9 % (42.8-82.8); PLATELET COUNT 184 K/MM3 (134-434); RBC 3.09 M/mm3 (4.00-5.60); RDW 14.4 % (11.9-15.9); WHITE BLOOD COUNT 8.9 K/mm3 (4.0-10.0)
[2018-08-06 09:50] LABS: ANION GAP 6 MMOL/L (8-16); BLOOD UREA NITROGEN 39 mg/dL (7-18); CALCIUM 8.3 mg/dL (8.5-10.1); CHLORIDE 104 mmol/L (98-107); CO2 28 mmol/L (21-32); CREATININE 1.5 mg/dL (0.55-1.3); GLUCOSE,RANDOM 107 mg/dL (74-106); POTASSIUM 4.8 mmol/L (3.5-5.1); SODIUM 138 mmol/L (136-145)
[2018-08-06] MEDS: METOPROLOL TARTRATE 25 MG TABLET (FP) PO SCH ×2 (10:05→22:59)
[2018-08-06] MEDS: TAMSULOSIN HCL 0.4 MG CAP PO SCH (10:06)
--- NOTE | 2018-08-06 11:28 | PN ---
Progress Note (short form) - Note Progress Note: ID consult dictated imp/reccd Hematuria urinary retention possible UTI no fevers documented but ER note mentions fever in ED cultures rocephin no history of MDRO urology to see vazquez was replaced- ?retention Problem List - Problems (1) UTI (urinary tract infection) Code(s): N39.0 - URINARY TRACT INFECTION, SITE NOT SPECIFIED (2) Hematuria Code(s): R31.9 - HEMATURIA, UNSPECIFIED (3) Urinary retention Code(s): R33.9 - RETENTION OF URINE, UNSPECIFIED
--- NOTE | 2018-08-06 12:04 | CONS ---
DATE OF CONSULTATION: DATE OF DICTATION: 08/06/2018 INFECTIOUS DISEASE CONSULTATION REQUESTED BY: Autumn Salamanca MD DICTATED BY: Kaitlyn Marshall MD This is an 88-year-old man who is residing [facility] the [facility]. He was sent to the hospital with hematuria and bladder distention. He had just had a Guerra removed at the [facility] and was noted to have bleeding after it was removed. In the emergency room, a Guerra was reinserted. Per the ER note, he had a rectal fever that was not documented, and he was started on ceftriaxone for possible UTI. We were asked to see him for further recommendations. He is awake and alert. He notes he is in no distress. He denies any fevers or chills, cough. He denies any chest pain or abdominal pain. PAST MEDICAL HISTORY: Notable for migraine headaches, atrial fibrillation, hypertension, hyperlipidemia, history of colon cancer, and GERD, BPH, anemia. He also refers to having a possible prior carotid surgery. SURGICAL HISTORY: She is noted for colon resection. SOCIAL HISTORY: He is from [place]. He is currently living at the [facility]. There is no history of substance use. He used to work for [employer]. He does not have any family in the area. ALLERGIES: He has no known drug allergies. MEDICATIONS: Include tamsulosin, metoprolol, simvastatin, vitamin D, finasteride, Colace, Prilosec, and aspirin. FAMILY HISTORY: Unremarkable. REVIEW OF SYSTEMS: As per HPI. PHYSICAL EXAMINATION: Vital Signs: He is afebrile with a temp of 98, pulse of 85, blood pressure 129/75, respiratory rate is 20. HEENT: He is normocephalic. His eyes are anicteric. Neck: Supple. Lungs: Clear to auscultation. Heart: Regular rate and rhythm. Abdomen: Soft, nontender. He has no CVA tenderness. Genitourinary: He has a Guerra that is draining slightly cloudy urine. There is no blood in the Guerra catheter. Extremities: Without edema. LABORATORY DATA: White count is 8.9, hemoglobin 9.1, platelets 184. INR is 1.1. BUN 39 and creatinine 1.5 with normal LFTs and urinalysis has 3+ blood, 2+ leukocyte esterase with 35 white cells. Urine and blood cultures are pending. IN SUMMARY: This is an elderly man with hematuria, urinary retention, possible urinary tract infection. Cultures are pending. We will treat him with Rocephin. No history of multidrug-resistant organisms. Urology consult to evaluate his urinary retention as the Guerra was replaced. Further recommendations to follow. KAITLYN MARSHALL M.D. [place]/[id number]
[2018-08-06] MEDS ORDERED: PIPERACILLIN/TAZOBACTAM 3.375 GM VIAL IVPB ONE ×2 (13:34→17:30)
[2018-08-06] MEDS ORDERED: DEXTROSE 5%-WATER - 50 ML IVPB ONE ×2 (13:35→17:30)
--- NOTE | 2018-08-06 13:36 | PN ---
Progress Note, Physician Chief Complaint: Hematuria Urinary Retention, BPH History of Present Illness: Previous notes and events reviewed awake and alert, confused NAD denies complaints of chest pain, SOB patient febrile with temp 103F, given tylenol IVPB and current temp 99.1F BC drawn and UC pending - Current Medication List Current Medications: Active Medications Acetaminophen (Ofirmev Injection -) 1,000 mg IVPB Q6H PRN PRN Reason: FEVER Atorvastatin Calcium (Lipitor -) 20 mg PO HS SUAD Docusate Sodium (Colace -) 200 mg PO HS SUAD Finasteride (Proscar -) 5 mg PO HS SUAD Piperacillin Sod/Tazobactam (Sod 3.375 gm/ Dextrose) 50 mls @ 100 mls/hr IVPB Q8H-IV SUAD; Protocol Metoprolol Tartrate (Lopressor -) 12.5 mg PO BID [facility] Last Admin: 08/06/18 10:05 Dose: 12.5 mg Pantoprazole Sodium (Protonix -) 40 mg PO HS SUAD Tamsulosin HCl (Flomax -) 0.4 mg PO DAILY@0830 [facility] Last Admin: 08/06/18 10:06 Dose: 0.4 mg - Objective Vital Signs: Vital Signs Temperature 103 F H 08/06/18 11:00 Pulse Rate 86 08/06/18 11:00 Respiratory Rate 18 08/06/18 11:00 Blood Pressure 128/58 L 08/06/18 11:00 O2 Sat by Pulse Oximetry (%) 98 08/06/18 09:00 Constitutional: Yes: No Distress, Calm Eyes: Yes: Conjunctiva Clear HENT: Yes: Atraumatic Cardiovascular: Yes: Regular Rate and Rhythm Respiratory: Yes: Regular, CTA Bilaterally Gastrointestinal: Yes: Normal Bowel Sounds, Soft, Other (non tender) Genitourinary: Yes: Guerra Present Musculoskeletal: Yes: Muscle Weakness Extremities: Yes: WNL Edema: No Peripheral Pulses WNL: No (poor pedal pulses ) Neurological: Yes: Alert, Confusion Psychiatric: Yes: Alert Labs: CBC, BMP 08/06/18 08:30 08/06/18 08:30 INR, PTT INR 1.13 (0.83-1.09) H 08/05/18 22:45 Laboratory Results - last 24 hr 08/05/18 08/05/18 08/05/18 22:45 22:45 22:45 WBC 9.7 RBC 3.31 L Hgb 10.4 L Hct 30.4 L MCV 91.7 MCH 31.5 MCHC 34.3 RDW 14.1 Plt Count 207 D MPV 8.2 Absolute Neuts (auto) 8.4 H Neutrophils % 86.4 H Lymphocytes % 6.2 L D Monocytes % 6.0 Eosinophils % 0.9 D Basophils % 0.5 Nucleated RBC % 0 PT with INR 13.40 H INR 1.13 H PTT (Actin FS) VBG pH POC VBG pCO2 POC VBG pO2 VBG HCO3 VBG O2 Sat (Maty) VBG Base Excess Sodium 136 Potassium 5.5 H Chloride 105 Carbon Dioxide 25 Anion Gap 6 L BUN 40 H Creatinine 1.6 H Creat Clearance w eGFR 41.00 POC Glucometer Random Glucose 117 H Lactic Acid Calcium 8.2 L Total Bilirubin 0.4 AST 19 ALT 24 Alkaline Phosphatase 81 Troponin I Total Protein 6.5 Albumin 2.7 L Urine Color Urine Appearance Urine pH Ur Specific [place] Urine Protein Urine Glucose (UA) Urine Ketones Urine Blood Urine Nitrite Urine Bilirubin Urine Urobilinogen Ur Leukocyte Esterase Urine WBC (Auto) Urine RBC (Auto) Ur Epithelial Cells Urine Bacteria Hyaline Casts Urine Yeast 08/05/18 08/05/18 08/05/18 22:45 22:45 23:00 WBC RBC Hgb Hct MCV MCH MCHC RDW Plt Count MPV Absolute Neuts (auto) Neutrophils % Lymphocytes % Monocytes % Eosinophils % Basophils % Nucleated RBC % PT with INR INR PTT (Actin FS) 28.0 VBG pH 7.44 H POC VBG pCO2 36.4 L POC VBG pO2 46.7 VBG HCO3 24.5 L* VBG O2 Sat (Maty) 81.2 H* VBG Base Excess 1.0 Sodium Potassium Chloride Carbon Dioxide Anion Gap BUN Creatinine Creat Clearance w eGFR POC Glucometer Random Glucose Lactic Acid Calcium Total Bilirubin AST ALT Alkaline Phosphatase Troponin I < 0.02 Total Protein Albumin Urine Color Urine Appearance Urine pH Ur Specific [place] Urine Protein Urine Glucose (UA) Urine Ketones Urine Blood Urine Nitrite Urine Bilirubin Urine Urobilinogen Ur Leukocyte Esterase Urine WBC (Auto) Urine RBC (Auto) Ur Epithelial Cells Urine Bacteria Hyaline Casts Urine Yeast 08/05/18 08/06/18 08/06/18 23:00 00:05 01:00 WBC RBC Hgb Hct MCV MCH MCHC RDW Plt Count MPV Absolute Neuts (auto) Neutrophils % Lymphocytes % Monocytes % Eosinophils % Basophils % Nucleated RBC % PT with INR INR PTT (Actin FS) VBG pH POC VBG pCO2 POC VBG pO2 VBG HCO3 VBG O2 Sat (Maty) VBG Base Excess Sodium Potassium Chloride Carbon Dioxide Anion Gap BUN Creatinine Creat Clearance w eGFR POC Glucometer Random Glucose Lactic Acid 0.8 Calcium Total Bilirubin AST ALT Alkaline Phosphatase Troponin I Total Protein Albumin Urine Color Yellow Yellow Urine Appearance Slcloudy Slcloudy Urine pH 5.0 5.0 Ur Specific [place] 1.012 1.012 Urine Protein 1+ H 1+ H Urine Glucose (UA) Negative Negative Urine Ketones Negative Negative Urine Blood 3+ H 3+ H Urine Nitrite Negative Negative Urine Bilirubin Negative Negative Urine Urobilinogen 2.0 2.0 Ur Leukocyte Esterase 1+ H 2+ H Urine WBC (Auto) 73 35 Urine RBC (Auto) 306 32 Ur Epithelial Cells Rare Rare Urine Bacteria Rare Hyaline Casts 3 Urine Yeast Rare Few 08/06/18 08/06/18 08/06/18 02:47 03:03 08:30 WBC 8.9 RBC 3.09 L Hgb 9.7 L Hct 28.4 L MCV 91.9 MCH 31.2 MCHC 33.9 RDW 14.4 Plt Count 184 MPV 8.3 Absolute Neuts (auto) 7.5 Neutrophils % 84.9 H Lymphocytes % 6.8 L Monocytes % 6.0 Eosinophils % 1.9 D Basophils % 0.4 Nucleated RBC % 0 PT with INR INR PTT (Actin FS) VBG pH POC VBG pCO2 POC VBG pO2 VBG HCO3 VBG O2 Sat (Maty) VBG Base Excess Sodium Potassium Chloride Carbon Dioxide Anion Gap BUN Creatinine Creat Clearance w eGFR POC Glucometer 130 Random Glucose Lactic Acid 0.7 Calcium Total Bilirubin AST ALT Alkaline Phosphatase Troponin I Total Protein Albumin Urine Color Urine Appearance Urine pH Ur Specific [place] Urine Protein Urine Glucose (UA) Urine Ketones Urine Blood Urine Nitrite Urine Bilirubin Urine Urobilinogen Ur Leukocyte Esterase Urine WBC (Auto) Urine RBC (Auto) Ur Epithelial Cells Urine Bacteria Hyaline Casts Urine Yeast 08/06/18 08:30 WBC RBC Hgb Hct MCV MCH MCHC RDW Plt Count MPV Absolute Neuts (auto) Neutrophils % Lymphocytes % Monocytes % Eosinophils % Basophils % Nucleated RBC % PT with INR INR PTT (Actin FS) VBG pH POC VBG pCO2 POC VBG pO2 VBG HCO3 VBG O2 Sat (Maty) VBG Base Excess Sodium 138 Potassium 4.8 Chloride 104 Carbon Dioxide 28 Anion Gap 6 L BUN 39 H Creatinine 1.5 H Creat Clearance w eGFR 44.17 POC Glucometer Random Glucose 107 H Lactic Acid Calcium 8.3 L Total Bilirubin AST ALT Alkaline Phosphatase Troponin I Total Protein Albumin Urine Color Urine Appearance Urine pH Ur Specific [place] Urine Protein Urine Glucose (UA) Urine Ketones Urine Blood Urine Nitrite Urine Bilirubin Urine Urobilinogen Ur Leukocyte Esterase Urine WBC (Auto) Urine RBC (Auto) Ur Epithelial Cells Urine Bacteria Hyaline Casts Urine Yeast Problem List - Problems (1) BPH (benign prostatic hyperplasia) Assessment/Plan: -urology consult placed -continue with tamsulosin and proscar Code(s): N40.0 - BENIGN PROSTATIC HYPERPLASIA WITHOUT LOWER URINRY TRACT SYMP (2) HLD (hyperlipidemia) Assessment/Plan: -continue with atorvastatin Code(s): E78.5 - HYPERLIPIDEMIA, UNSPECIFIED (3) HTN (hypertension) Assessment/Plan: -continue with metoprolol Code(s): I10 - ESSENTIAL (PRIMARY) HYPERTENSION (4) UTI (urinary tract infection) Assessment/Plan: -ID on board -UC pending -UA show 2+ leuk, 3+ blood -continue with zosyn -tylenol IVPB PRN for temp >100F -WBC 8.9 Code(s): N39.0 - URINARY TRACT INFECTION, SITE NOT SPECIFIED (5) Urinary retention Assessment/Plan: - care -urology consult pending -continue with tamsulosin and proscar Code(s): R33.9 - RETENTION OF URINE, UNSPECIFIED (6) Poor circulation of extremity Assessment/Plan: -vascular consult Code(s): R09.89 - OTH SYMPTOMS AND SIGNS INVOLVING THE CIRC AND RESP SYSTEMS (7) Altered mental status Assessment/Plan: -confused alert and awake to self -2/2 infection? vs poss dementia? -neurology consult -head ct scan Code(s): R41.82 - ALTERED MENTAL STATUS, UNSPECIFIED Assessment/Plan see problem list dvt ppx
[2018-08-06] MEDS: ACETAMINOPHEN 1000 MG/100 ML VIAL (NON FORMULARY) IVPB PRN ×2 (13:42→22:30)
--- NOTE | 2018-08-06 14:18 | EKG ---
Test Reason : Blood Pressure : / mmHG Vent. Rate : 117 BPM Atrial Rate : 117 BPM P-R Int : 162 ms QRS Dur : 084 ms QT Int : 308 ms P-R-T Axes : 048 008 059 degrees QTc Int : 429 ms POOR DATA QUALITY, INTERPRETATION MAY BE ADVERSELY AFFECTED SINUS TACHYCARDIA Confirmed by EAN HUFFMAN MD ([id number]) on 08/06/2018 2:18:11 PM Referred By: Confirmed By:EAN HUFFMAN MD
[2018-08-06] MEDS: PIPERACILLIN/TAZOB 3.375 GM 3.375 GM in DEXTROSE 5%-WATER - 50 ML IVPB SCH ×2 (15:13→17:32)
[2018-08-06] MEDS ORDERED: CEFTRIAXONE 1 GM in DEXTROSE 5%-WATER 100 ML IVPB SCH (20:00)
[2018-08-06] MEDS: FINASTERIDE 5 MG TABLET (FP) PO SCH (22:59)
[2018-08-06] MEDS: PANTOPRAZOLE 40 MG TABLET (FP) PO SCH (22:59)
[2018-08-06] MEDS: DOCUSATE SODIUM 100 MG CAPSULE (FP) PO SCH (22:59)
[2018-08-06] MEDS: ATORVASTATIN CA 20 MG TABLET (FP) PO SCH (22:59)
[2018-08-07] MEDS ORDERED: PIPERACILLIN/TAZOBACTAM 3.375 GM VIAL IVPB ONE ×3 (01:31→16:12)
[2018-08-07] MEDS ORDERED: DEXTROSE 5%-WATER - 50 ML IVPB ONE ×3 (01:31→16:12)
[2018-08-07] MEDS: PIPERACILLIN/TAZOB 3.375 GM 3.375 GM in DEXTROSE 5%-WATER - 50 ML IVPB SCH ×3 (01:57→17:53)
[2018-08-07] MEDS: TAMSULOSIN HCL 0.4 MG CAP PO SCH (08:55)
[2018-08-07] MEDS: ACETAMINOPHEN 1000 MG/100 ML VIAL (NON FORMULARY) IVPB PRN (10:30)
[2018-08-07] MEDS: METOPROLOL TARTRATE 25 MG TABLET (FP) PO SCH ×2 (10:31→21:11)
[2018-08-07] MEDS ORDERED: VANCOMYCIN 1 GRAM (PRE-DOCKED) 1,000 MG/250 ML BAG IVPB ONE (12:06)
--- NOTE | 2018-08-07 12:06 | PN ---
Progress Note, Physician History of Present Illness: AWAKE IN BED NO COMPLAINTS LOW GRADE TEMP BC PRELIM (-) URINE C/S ?ENTEROCOCCUS - Current Medication List Current Medications: Active Medications Acetaminophen (Ofirmev Injection -) 1,000 mg IVPB Q6H PRN PRN Reason: FEVER Last Admin: 08/07/18 10:30 Dose: 1,000 mg Atorvastatin Calcium (Lipitor -) 20 mg PO HS [facility] Last Admin: 08/06/18 22:59 Dose: Not Given Docusate Sodium (Colace -) 200 mg PO [facility] Last Admin: 08/06/18 22:59 Dose: Not Given Finasteride (Proscar -) 5 mg PO [facility] Last Admin: 08/06/18 22:59 Dose: Not Given Piperacillin Sod/Tazobactam (Sod 3.375 gm/ Dextrose) 50 mls @ 100 mls/hr IVPB Q8H-IV SUAD; Protocol Last Admin: 08/07/18 10:29 Dose: 100 mls/hr Metoprolol Tartrate (Lopressor -) 12.5 mg PO BID [facility] Last Admin: 08/07/18 10:31 Dose: 12.5 mg Pantoprazole Sodium (Protonix -) 40 mg PO [facility] Last Admin: 08/06/18 22:59 Dose: Not Given Tamsulosin HCl (Flomax -) 0.4 mg PO DAILY@0830 [facility] Last Admin: 08/07/18 08:55 Dose: 0.4 mg - Objective Vital Signs: Vital Signs Temperature 98 F 08/07/18 09:05 Pulse Rate 85 08/07/18 09:05 Respiratory Rate 18 08/07/18 09:05 Blood Pressure 123/80 08/07/18 09:05 O2 Sat by Pulse Oximetry (%) 95 08/07/18 09:00 Constitutional: Yes: No Distress Eyes: Yes: Conjunctiva Clear Cardiovascular: Yes: Regular Rate and Rhythm, S1, S2 Respiratory: Yes: CTA Bilaterally Gastrointestinal: Yes: Normal Bowel Sounds, Soft. No: Tenderness Labs: CBC, BMP 08/06/18 08:30 08/06/18 08:30 INR, PTT INR 1.13 (0.83-1.09) H 08/05/18 22:45 Assessment/Plan ACUTE URINARY RETENTION HEMATURIA UTI AZOTEMIA AWAIT C/S VANCOMYCIN X 1
--- NOTE | 2018-08-07 12:33 | PN ---
Progress Note, Physician - Current Medication List Current Medications: Active Medications Acetaminophen (Ofirmev Injection -) 1,000 mg IVPB Q6H PRN PRN Reason: FEVER Last Admin: 08/07/18 10:30 Dose: 1,000 mg Atorvastatin Calcium (Lipitor -) 20 mg PO [facility] Last Admin: 08/06/18 22:59 Dose: Not Given Docusate Sodium (Colace -) 200 mg PO [facility] Last Admin: 08/06/18 22:59 Dose: Not Given Finasteride (Proscar -) 5 mg PO [facility] Last Admin: 08/06/18 22:59 Dose: Not Given Piperacillin Sod/Tazobactam (Sod 3.375 gm/ Dextrose) 50 mls @ 100 mls/hr IVPB Q8H-IV [facility]; Protocol Last Admin: 08/07/18 10:29 Dose: 100 mls/hr Vancomycin HCl (Vancomycin (Pre-Docked)) 1,000 mg in 250 mls @ 166.667 mls/hr IVPB ONCE ONE; Protocol Stop: 08/07/18 13:35 Metoprolol Tartrate (Lopressor -) 12.5 mg PO BID [facility] Last Admin: 08/07/18 10:31 Dose: 12.5 mg Pantoprazole Sodium (Protonix -) 40 mg PO [facility] Last Admin: 08/06/18 22:59 Dose: Not Given Tamsulosin HCl (Flomax -) 0.4 mg PO DAILY@0830 [facility] Last Admin: 08/07/18 08:55 Dose: 0.4 mg - Objective Vital Signs: Vital Signs Temperature 98 F 08/07/18 09:05 Pulse Rate 85 08/07/18 09:05 Respiratory Rate 18 08/07/18 09:05 Blood Pressure 123/80 08/07/18 09:05 O2 Sat by Pulse Oximetry (%) 95 08/07/18 09:00 Cardiovascular: Yes: S1, S2 Respiratory: Yes: Regular, CTA Bilaterally Gastrointestinal: Yes: Normal Bowel Sounds, Soft. No: Tenderness Labs: CBC, BMP 08/06/18 08:30 08/06/18 08:30 INR, PTT INR 1.13 (0.83-1.09) H 08/05/18 22:45 Assessment/Plan Problems (1) BPH (benign prostatic hyperplasia) Assessment/Plan: -urology consult -continue with tamsulosin and proscar Code(s): N40.0 - BENIGN PROSTATIC HYPERPLASIA WITHOUT LOWER URINRY TRACT SYMP (2) HLD (hyperlipidemia) Assessment/Plan: -continue with atorvastatin Code(s): E78.5 - HYPERLIPIDEMIA, UNSPECIFIED (3) HTN (hypertension) Assessment/Plan: -continue with metoprolol Code(s): I10 - ESSENTIAL (PRIMARY) HYPERTENSION (4) UTI (urinary tract infection) Assessment/Plan: -ID on board -UC pending Microbiology 08/06/18 13:40 Blood Culture - Preliminary Blood - Peripheral Venous NO GROWTH OBTAINED AFTER 24 HOURS, INCUBATION TO CONTINUE FOR 4 DAYS. 08/05/18 22:48 Blood Culture - Preliminary Blood - Peripheral Venous Pending Organism 08/05/18 23:00 Urine Culture - Preliminary Urine - Urine Clean Catch Group D Strep Or Entero Coccus 08/06/18 00:05 Blood Culture - Preliminary Blood - Peripheral Venous NO GROWTH OBTAINED AFTER 24 HOURS, INCUBATION TO CONTINUE FOR 4 DAYS. -UA show 2+ leuk, 3+ blood -continue with zosyn -tylenol IVPB PRN for temp >100F -WBC 8.9 Code(s): N39.0 - URINARY TRACT INFECTION, SITE NOT SPECIFIED (5) Urinary retention Assessment/Plan: - care -urology consult pending -continue with tamsulosin and proscar Code(s): R33.9 - RETENTION OF URINE, UNSPECIFIED (6) Poor circulation of extremity Assessment/Plan: -vascular consult Code(s): R09.89 - OTH SYMPTOMS AND SIGNS INVOLVING THE CIRC AND RESP SYSTEMS (7) Altered mental status Assessment/Plan: -confused alert and awake to self -2/2 infection? vs poss dementia? -neurology consult -head ct scan Code(s): R41.82 - ALTERED MENTAL STATUS, UNSPECIFIED
[2018-08-07] MEDS ORDERED: CASPOFUNGIN ACETATE 70 MG in SODIUM CHLORIDE 250 ML IVPB ONE (13:15)
[2018-08-07 16:20] VITALS: BMI 18.6
[2018-08-07] MEDS: DOCUSATE SODIUM 100 MG CAPSULE (FP) PO SCH (21:12)
[2018-08-07] MEDS: FINASTERIDE 5 MG TABLET (FP) PO SCH (21:12)
[2018-08-07] MEDS: PANTOPRAZOLE 40 MG TABLET (FP) PO SCH (21:12)
[2018-08-07] MEDS: ATORVASTATIN CA 20 MG TABLET (FP) PO SCH (21:12)
[2018-08-08] MEDS ORDERED: DEXTROSE 5%-WATER - 50 ML IVPB ONE ×3 (00:27→16:57)
[2018-08-08] MEDS ORDERED: PIPERACILLIN/TAZOBACTAM 3.375 GM VIAL IVPB ONE ×3 (00:27→16:57)
[2018-08-08] MEDS: PIPERACILLIN/TAZOB 3.375 GM 3.375 GM in DEXTROSE 5%-WATER - 50 ML IVPB SCH ×2 (01:17→09:21)
[2018-08-08] MEDS ORDERED: PT OWN MED DRAWER 7, Y5N ONE ×2 (09:04→16:56)
[2018-08-08] MEDS: METOPROLOL TARTRATE 25 MG TABLET (FP) PO SCH ×2 (09:21→23:21)
[2018-08-08] MEDS: TAMSULOSIN HCL 0.4 MG CAP PO SCH (09:21)
--- NOTE | 2018-08-08 10:25 | CONSULT ---
Consult - text type - Consultation Consultation Note: Renal Consult for EDI vs. CKD This is a 88 year old gentleman with hx of Metastatic colon Ca s/p resection, CAD, HTN, HLD, Aortic Mural Hematoma, BPH who presented with gross hematuria following discontinuation of vazquez catheter with EDI. Pt denies any abd pain now. Has vazquez in place. No gross hematuria was seen. Pt was febrile and urine cultures are positive. No SOB, CP, Abd pain, N/V/D. Making urine via vazquez. No HALL, confusion or lethargy. PMhx: as above Allergies: NKDA Family hx: NC Social hx: No T/A/D ROS: as per HPI, all other pertinent ros negative Home Medications Medication Instructions Recorded Tamsulosin HCl 0.4 mg PO HS 09/30/12 Metoprolol Tartrate [Lopressor -] 12.5 mg PO BID 08/02/13 Simvastatin [Zocor] 40 mg PO HS 08/04/13 Cholecalciferol (Vitamin D3) 2,000 unit PO DAILY 10/15/15 [Vitamin D] Docusate Sodium [Colace -] 200 mg PO HS 10/15/15 Finasteride [Proscar -] 5 mg PO HS 10/15/15 Omeprazole [Prilosec] 40 mg PO HS 10/15/15 Aspirin [ASA -] 81 mg PO Q2D 10/24/15 Vital Signs Temperature 98.8 F 08/08/18 05:39 Pulse Rate 71 08/08/18 05:39 Respiratory Rate 18 08/08/18 05:39 Blood Pressure 122/50 L 08/08/18 05:39 O2 Sat by Pulse Oximetry (%) 95 08/07/18 21:00 Intake & Output 08/05/18 08/06/18 08/07/18 08/09/18 23:59 23:59 23:59 00:59 Intake Total 60 1470 300 Output Total 1450 1000 975 300 Balance -1450 -940 495 0 Weight 72.575 kg 62.312 kg 62.142 kg NAD awake and alert neck supple, no JVD RRR, no M/R CTA soft NT/ND no flank pain no bladder distension vazquez in place no LE edema, clubbing or cyanosis CBC, BMP 08/06/18 08:30 08/06/18 08:30 Current Medications Acetaminophen (Ofirmev Injection -) 1,000 mg IVPB Q6H PRN PRN Reason: FEVER Last Admin: 08/07/18 10:30 Dose: 1,000 mg Atorvastatin Calcium (Lipitor -) 20 mg PO HS [facility] Last Admin: 08/07/18 21:12 Dose: 20 mg Docusate Sodium (Colace -) 200 mg PO HS [facility] Last Admin: 08/07/18 21:12 Dose: 200 mg Finasteride (Proscar -) 5 mg PO HS [facility] Last Admin: 08/07/18 21:12 Dose: 5 mg Piperacillin Sod/Tazobactam (Sod 3.375 gm/ Dextrose) 50 mls @ 100 mls/hr IVPB Q8H-IV [facility]; Protocol Last Admin: 08/08/18 09:21 Dose: 100 mls/hr Metoprolol Tartrate (Lopressor -) 12.5 mg PO BID [facility] Last Admin: 08/08/18 09:21 Dose: 12.5 mg Pantoprazole Sodium (Protonix -) 40 mg PO [facility] Last Admin: 08/07/18 21:12 Dose: 40 mg Tamsulosin HCl (Flomax -) 0.4 mg PO DAILY@0830 [facility] Last Admin: 08/08/18 09:21 Dose: 0.4 mg 88 year old gentleman with hx of Metastatic colon Ca s/p resection, CAD, HTN, HLD, Aortic Mural Hematoma, BPH who presented with gross hematuria following discontinuation of vazquez catheter with DEI. #EDI/CKD in setting of urinary retention #Cystitis vs. pylonephritis #Hypertension #BPH #Hematuria in setting of urinary tract infection Check urine studies for FeNa, UPCR, Urine Eos Continue vazquez Check US to check for evidence of pylonephritis or higher level obstruction start isotonic saline Continue abx as per ID Urology follow up continue proscar and flomax Repeat UA for hematuria after completion of antibiotics Trend renal function and electrolytes daily Thank you Ronn Leos DO
[2018-08-08] MEDS: SODIUM CHLORIDE 1,000 ML IV SCH (12:00)
--- NOTE | 2018-08-08 12:27 | CON.NEURO ---
Consult Consult Specialty:: [facility] Referred by:: [facility] Reason for Consultation:: AMS - History of Present Illness History of Present Illness: 88-year-old right-handed man with PMHx of Colon Ca s/p resection, BPH, HTN, HLD, KOREY, GERD, Hernia, Migraine, Dysphagia. Presented with hematuria neurology was called to evaluate the patient for questionable confusion. Patient was noted with renal insufficiency mild anemia Patient himself is a poor historian he denies any recent travel patient since he lives at home Since admission to look for any seizure-like activity Patient did not receive any chemotherapy rrecently Patient was cooperative during the exam - History Source History Provided By: Patient Limitations to Obtaining History: Clinical Condition - Past Medical History MARBLEIZER: Yes: Migraine Cardio/Vascular: Yes: AFIB, HTN, Hyperlipdemia Gastrointestinal: Yes: Cancer (Colon), GERD, Other (Hernia) Renal/: Yes: BPH - Alcohol/Substance Use Hx Alcohol Use: No History of Substance Use: reports: None - Smoking History Smoking history: Never smoked Have you smoked in the past 12 months: No Aproximately how many cigarettes per day: 0 - Social History ADL: Support Services History of Recent Travel: No Home Medications - Allergies Allergies/Adverse Reactions: Allergies Allergy/AdvReac Type Severity Reaction Status Date / Time No Known Drug Allergies Allergy Verified 08/05/18 21:40 - Home Medications Home Medications: Ambulatory Orders Tamsulosin HCl 0.4 mg PO HS 09/30/12 Metoprolol Tartrate [Lopressor -] 12.5 mg PO BID 08/02/13 Simvastatin [Zocor] 40 mg PO HS 08/04/13 Cholecalciferol (Vitamin D3) [Vitamin D] 2,000 unit PO DAILY 10/15/15 Docusate Sodium [Colace -] 200 mg PO HS 10/15/15 Finasteride [Proscar -] 5 mg PO HS 10/15/15 Omeprazole [Prilosec] 40 mg PO HS 10/15/15 Aspirin [ASA -] 81 mg PO Q2D 10/24/15 Family Disease History - Family Disease History Family History: Unable to Obtain Review of Systems - Review of Systems Constitutional: reports: No Symptoms Eyes: reports: No Symptoms Neurological: reports: Headache, Incoordination, Numbness Physical Exam-Neuro Vital Signs: Vital Signs Temperature 98.8 F 08/08/18 05:39 Pulse Rate 71 08/08/18 05:39 Respiratory Rate 18 08/08/18 05:39 Blood Pressure 122/50 L 08/08/18 05:39 O2 Sat by Pulse Oximetry (%) 95 08/07/18 21:00 Constitutional: Yes: Well Nourished Neck: Yes: WNL Labs: CBC, BMP 08/06/18 08:30 08/06/18 08:30 INR, PTT INR 1.13 (0.83-1.09) H 08/05/18 22:45 - Neuro Exam Level Of Consciousness: Yes: Oriented to Person, Oriented to Place, Oriented to Time Eyes: Yes: PERRLA Speech: WNL Dominant Hand: Right Cranial Nerves II-XII Intact: Yes DTR's: 1+ Left Bicep, 1+ Right Bicep, 1+ Left Tricep, 1+ Right Tricep Response to light touch: Normal Response to pain prick: Normal Response to temperature: Normal Response to vibration: Abnormal Motor Strength: 2/5: Left Arm, Right Arm, Left Leg, Right Leg Gait: Deferred Imaging - Results Cat Scan: Image Reviewed Problem List - Problems (1) Altered mental status Assessment/Plan: there is no evidence of stroke No evidence of seizure Toxic metabolic encephalopathy resulting associated with renal insufficiency 1. Agree to plan treatment and monitor 2. Agree to the plan of the supervisor electric motor testing 3. IV fluids 4. Blood work 5. EEG Thank you very much for this referral Code(s): R41.82 - ALTERED MENTAL STATUS, UNSPECIFIED
--- NOTE | 2018-08-08 15:32 | PN ---
Progress Note, Physician - Current Medication List Current Medications: Active Medications Acetaminophen (Ofirmev Injection -) 1,000 mg IVPB Q6H PRN PRN Reason: FEVER Last Admin: 08/07/18 10:30 Dose: 1,000 mg Atorvastatin Calcium (Lipitor -) [address] [facility] Last Admin: 08/07/18 21:12 Dose: 20 mg Docusate Sodium (Colace -) [address] [facility] Last Admin: 08/07/18 21:12 Dose: 200 mg Finasteride (Proscar -) [address] [facility] Last Admin: 08/07/18 21:12 Dose: 5 mg Piperacillin Sod/Tazobactam (Sod 3.375 gm/ Dextrose) 50 mls @ 100 mls/hr IVPB Q8H-IV [facility]; Protocol Last Admin: 08/08/18 09:21 Dose: 100 mls/hr Sodium Chloride (Normal Saline -) 1,000 mls @ 75 mls/hr IV ASDIR [facility] Caspofungin 50 mg/ Sodium (Chloride) 250 mls @ 250 mls/hr IVPB Q24H [facility] Metoprolol Tartrate (Lopressor -) 12.5 mg PO BID [facility] Last Admin: 08/08/18 09:21 Dose: 12.5 mg Pantoprazole Sodium (Protonix -) [address] [facility] Last Admin: 08/07/18 21:12 Dose: 40 mg Tamsulosin HCl (Flomax -) 0.4 mg PO DAILY@0830 [facility] Last Admin: 08/08/18 09:21 Dose: 0.4 mg - Objective Vital Signs: Vital Signs Temperature 98.8 F 08/08/18 14:25 Pulse Rate 61 08/08/18 14:25 Respiratory Rate 20 08/08/18 14:25 Blood Pressure 109/47 L 08/08/18 14:25 O2 Sat by Pulse Oximetry (%) 95 08/07/18 21:00 Cardiovascular: Yes: S1, S2 Respiratory: Yes: Regular, CTA Bilaterally Gastrointestinal: Yes: Normal Bowel Sounds, Soft Labs: CBC, BMP 08/06/18 08:30 08/06/18 08:30 INR, PTT INR 1.13 (0.83-1.09) H 08/05/18 22:45 Assessment/Plan Problems (1) BPH (benign prostatic hyperplasia) Assessment/Plan: -urology consult -continue with tamsulosin and proscar Code(s): N40.0 - BENIGN PROSTATIC HYPERPLASIA WITHOUT LOWER URINRY TRACT SYMP (2) HLD (hyperlipidemia) Assessment/Plan: -continue with atorvastatin Code(s): E78.5 - HYPERLIPIDEMIA, UNSPECIFIED (3) HTN (hypertension) Assessment/Plan: -continue with metoprolol Code(s): I10 - ESSENTIAL (PRIMARY) HYPERTENSION (4) UTI (urinary tract infection) Assessment/Plan: -ID on board -UC pending Microbiology 08/06/18 14:30 Blood Culture - Preliminary Blood - Peripheral Venous NO GROWTH OBTAINED AFTER 48 HOURS, INCUBATION TO CONTINUE FOR 3 DAYS. 08/05/18 23:00 Urine Culture - Preliminary Urine - Urine Clean Catch Enterococcus Faecalis 08/06/18 13:40 Blood Culture - Preliminary Blood - Peripheral Venous Pending Organism 08/06/18 00:05 Blood Culture - Preliminary Blood - Peripheral Venous Yeast Like Organism 08/05/18 22:48 Blood Culture - Preliminary Blood - Peripheral Venous Yeast Like Organism -UA show 2+ leuk, 3+ blood -continue with zosyn -tylenol IVPB PRN for temp >100F -WBC 8.9 Code(s): N39.0 - URINARY TRACT INFECTION, SITE NOT SPECIFIED (5) Urinary retention Assessment/Plan: - care -urology consult pending -continue with tamsulosin and proscar Code(s): R33.9 - RETENTION OF URINE, UNSPECIFIED (6) Fungimia Assessment/Plan: Orders 08/08/18 13:45 Caspofungin Acetate [Cancidas (Restricted To Id) -] 50 mg Sodium Chloride [ Normal Saline -] 250 ml IVPB Q24H - (7) Altered mental status Assessment/Plan: -confused alert and awake to self -2/2 infection? vs poss dementia? -neurology consult -head ct scan Code(s): R41.82 - ALTERED MENTAL STATUS, UNSPECIFIED
[2018-08-08] MEDS: CASPOFUNGIN ACETATE 50 MG in SODIUM CHLORIDE 250 ML IVPB SCH (17:00)
--- NOTE | 2018-08-08 17:12 | PN ---
Progress Note, Physician History of Present Illness: BLOOD C/S YLO AWAKE IN BED NO COMPLAINTS TEMPS DOWN URINE C/S ENTEROCOCCUS ? SIGNIFICANCE - Current Medication List Current Medications: Active Medications Acetaminophen (Ofirmev Injection -) 1,000 mg IVPB Q6H PRN PRN Reason: FEVER Last Admin: 08/07/18 10:30 Dose: 1,000 mg Atorvastatin Calcium (Lipitor -) 20 mg PO HS [facility] Last Admin: 08/07/18 21:12 Dose: 20 mg Docusate Sodium (Colace -) 200 mg PO HS [facility] Last Admin: 08/07/18 21:12 Dose: 200 mg Finasteride (Proscar -) 5 mg PO HS [facility] Last Admin: 08/07/18 21:12 Dose: 5 mg Piperacillin Sod/Tazobactam (Sod 3.375 gm/ Dextrose) 50 mls @ 100 mls/hr IVPB Q8H-IV [facility]; Protocol Last Admin: 08/08/18 09:21 Dose: 100 mls/hr Sodium Chloride (Normal Saline -) 1,000 mls @ 75 mls/hr IV [facility] Caspofungin 50 mg/ Sodium (Chloride) 250 mls @ 250 mls/hr IVPB Q24H [facility] Metoprolol Tartrate (Lopressor -) 12.5 mg PO BID [facility] Last Admin: 08/08/18 09:21 Dose: 12.5 mg Pantoprazole Sodium (Protonix -) 40 mg PO [facility] Last Admin: 08/07/18 21:12 Dose: 40 mg Tamsulosin HCl (Flomax -) 0.4 mg PO DAILY@0830 [facility] Last Admin: 08/08/18 09:21 Dose: 0.4 mg - Objective Vital Signs: Vital Signs Temperature 98.8 F 08/08/18 14:25 Pulse Rate 61 08/08/18 14:25 Respiratory Rate 20 08/08/18 14:25 Blood Pressure 109/47 L 08/08/18 14:25 O2 Sat by Pulse Oximetry (%) 96 08/08/18 09:00 Constitutional: Yes: No Distress Cardiovascular: Yes: Regular Rate and Rhythm, S1, S2 Respiratory: Yes: CTA Bilaterally Gastrointestinal: Yes: Normal Bowel Sounds, Soft. No: Tenderness Edema: No Labs: CBC, BMP 08/06/18 08:30 08/06/18 08:30 INR, PTT INR 1.13 (0.83-1.09) H 08/05/18 22:45 Assessment/Plan FUNGEMIA LIKELY SOURCE ACUTE URINARY RETENTION HEMATURIA UTI AZOTEMIA AWAIT C/S CONTINUE CANCIDAS PO AMOXICILLIN
[2018-08-08] MEDS: FINASTERIDE 5 MG TABLET (FP) PO SCH (23:21)
[2018-08-08] MEDS: AMOXICILLIN 500 MG CAPSULE (FP) PO SCH (23:22)
[2018-08-08] MEDS: ATORVASTATIN CA 20 MG TABLET (FP) PO SCH (23:22)
[2018-08-08] MEDS: PANTOPRAZOLE 40 MG TABLET (FP) PO SCH (23:22)
[2018-08-08] MEDS: DOCUSATE SODIUM 100 MG CAPSULE (FP) PO SCH (23:22)
[2018-08-09] MEDS: AMOXICILLIN 500 MG CAPSULE (FP) PO SCH ×3 (05:45→21:34)
[2018-08-09 06:54] LABS: BASO % 0.6 % (0-2.0); EOS % 7.3 % (0-4.5); HEMATOCRIT 24.9 % (35.4-49); HEMOGLOBIN 8.4 GM/dL (11.7-16.9); LYMPH % 24.9 % (8-40); MCH 30.8 pg (25.7-33.7); MCHC 33.8 g/dl (32.0-35.9); MEAN CELL VOLUME 91.2 fl (80-96); MEAN PLT VOLUME 8.7 fl (7.5-11.1); MONO % 15.5 % (3.8-10.2); NEUT % 51.7 % (42.8-82.8); PLATELET COUNT 126 K/MM3 (134-434); RBC 2.72 M/mm3 (4.00-5.60); RDW 14.2 % (11.9-15.9); WHITE BLOOD COUNT 3.7 K/mm3 (4.0-10.0)
[2018-08-09 07:36] LABS: ALBUMIN 2.1 g/dl (3.4-5.0); ALK PHOS 151 U/L (45-117); ANION GAP 6 MMOL/L (8-16); BILIRUBIN,TOTAL 0.3 mg/dL (0.2-1); BLOOD UREA NITROGEN 28 mg/dL (7-18); CALCIUM 7.8 mg/dL (8.5-10.1); CHLORIDE 105 mmol/L (98-107); CO2 28 mmol/L (21-32); CREATININE 1.4 mg/dL (0.55-1.3); GLUCOSE,RANDOM 88 mg/dL (74-106); MAGNESIUM 2.3 mg/dL (1.8-2.4); PHOSPHOROUS 3.4 mg/dL (2.5-4.9); POTASSIUM 4.3 mmol/L (3.5-5.1); SGOT/AST 35 U/L (15-37); SGPT/ALT 35 U/L (13-61); SODIUM 139 mmol/L (136-145); TOT PROT 5.3 g/dl (6.4-8.2)
[2018-08-09] MEDS: TAMSULOSIN HCL 0.4 MG CAP PO SCH (08:50)
--- NOTE | 2018-08-09 10:23 | PN ---
Progress Note (short form) - Note Progress Note: Renal follow up for EDI/CKD Pt seen and examined at the bedside awake and alert no acute complaints no sob, cp, abd pain making urine no flank pain Vital Signs Temperature 97.7 F 08/09/18 04:00 Pulse Rate 61 08/09/18 04:00 Respiratory Rate 20 08/09/18 04:00 Blood Pressure 149/61 08/09/18 04:00 O2 Sat by Pulse Oximetry (%) 95 08/08/18 21:00 Intake & Output 08/06/18 08/07/18 08/08/18 08/09/18 22:59 22:59 23:59 23:59 Intake Total Output Total 300 Balance -300 Weight NAD RRR, no M/R CTA soft NT/ND vazquez in place no LE edema, clubbing or cyanosis CBC, BMP 08/09/18 06:10 08/09/18 06:10 Current Medications Acetaminophen (Tylenol -) 650 mg PO Q6H PRN PRN Reason: FEVER Amoxicillin (Amoxicillin -) 500 mg PO TID [facility] Last Admin: 08/09/18 05:45 Dose: 500 mg Atorvastatin Calcium (Lipitor -) 20 mg PO [facility] Last Admin: 08/08/18 23:22 Dose: 20 mg Docusate Sodium (Colace -) 200 mg PO [facility] Last Admin: 08/08/18 23:22 Dose: 200 mg Finasteride (Proscar -) 5 mg PO [facility] Last Admin: 08/08/18 23:21 Dose: 5 mg Sodium Chloride (Normal Saline -) 1,000 mls @ 75 mls/hr IV ASDIR [facility] Last Admin: 08/08/18 12:00 Dose: 75 mls/hr Caspofungin 50 mg/ Sodium (Chloride) 250 mls @ 250 mls/hr IVPB Q24H [facility] Last Admin: 08/08/18 17:00 Dose: 250 mls/hr Metoprolol Tartrate (Lopressor -) 12.5 mg PO BID [facility] Last Admin: 08/08/18 23:21 Dose: 12.5 mg Pantoprazole Sodium (Protonix -) 40 mg PO [facility] Last Admin: 08/08/18 23:22 Dose: 40 mg Tamsulosin HCl (Flomax -) 0.4 mg PO DAILY@0830 [facility] Last Admin: 08/09/18 08:50 Dose: 0.4 mg 88 year old gentleman with hx of Metastatic colon Ca s/p resection, CAD, HTN, HLD, Aortic Mural Hematoma, BPH who presented with gross hematuria following discontinuation of vazquez catheter with EDI. #EDI/CKD in setting of urinary retention #Cystitis vs. pylonephritis #Hypertension #BPH #Hematuria in setting of urinary tract infection FeNa is 0.35% indicating preserved tubular function UPCR is 0.5, Urine Eos pending Renal function stable US showed no obstrcution but small renal cysts Continue vazquez Check US to check for evidence of pylonephritis or higher level obstruction Continue abx as per ID Urology follow up continue proscar and flomax Repeat UA for hematuria after completion of antibiotics Trend renal function and electrolytes daily Thank you Ronn Leos DO
[2018-08-09] MEDS ORDERED: PT OWN MED DRAWER 7, Y5N ONE ×2 (10:24→13:05)
[2018-08-09] MEDS: METOPROLOL TARTRATE 25 MG TABLET (FP) PO SCH ×2 (10:37→21:38)
[2018-08-09] MEDS: SODIUM CHLORIDE 1,000 ML IV SCH (10:39)
--- NOTE | 2018-08-09 12:08 | PN ---
Progress Note (short form) - Note Progress Note: awake and alert no visual complaints denies prosthetic devices Vital Signs Period Temp Pulse Resp BP Sys/Scott Pulse Ox Last 24 Hr 97.7 F-98.8 F 61-65 18-20 109-149/47-63 95 cor-rrr lungs clear abd soft,nt ext no edema +vazquez CBC, BMP 08/09/18 06:10 08/09/18 06:10 Microbiology 08/06/18 14:30 Blood - Peripheral Venous Blood Culture - Final Yeast Like Organism 08/06/18 00:05 Blood - Peripheral Venous Yeast/Fungus Identification - Preliminary Yeast Like Organism 08/05/18 22:48 Blood - Peripheral Venous Blood Culture - Final Yeast Like Organism 08/06/18 00:05 Blood - Peripheral Venous Blood Culture - Final Yeast Like Organism 08/06/18 13:40 Blood - Peripheral Venous Blood Culture - Final Yeast Like Organism 08/05/18 23:00 Urine - Urine Clean Catch Urine Culture - Final Enterococcus Faecalis a/p fungemia- ?urinary source with vazquez manipulation not diabetic, not on steroids continue cancidas repeat blood cultures echo otho consult r/o endophthalmitis Hematuria urinary retention possible UTI fevers resolved will get ct scan chest/abd/pelvis- no contrast due to EDI consents to HIV testing Problem List - Problems (1) UTI (urinary tract infection) Code(s): N39.0 - URINARY TRACT INFECTION, SITE NOT SPECIFIED (2) Hematuria Code(s): R31.9 - HEMATURIA, UNSPECIFIED (3) Urinary retention Code(s): R33.9 - RETENTION OF URINE, UNSPECIFIED
[2018-08-09] MEDS: CASPOFUNGIN ACETATE 50 MG in SODIUM CHLORIDE 250 ML IVPB SCH (13:27)
--- NOTE | 2018-08-09 14:54 | PN ---
Progress Note, Physician Chief Complaint: Hematuria Urinary Retention, BPH History of Present Illness: Previous notes and events reviewed awake and alert, confused NAD denies complaints of chest pain, SOB afebrile and no leukocytosis - Current Medication List Current Medications: Active Medications Acetaminophen (Tylenol -) 650 mg PO Q6H PRN PRN Reason: FEVER Amoxicillin (Amoxicillin -) 500 mg PO TID [facility] Last Admin: 08/09/18 13:26 Dose: 500 mg Atorvastatin Calcium (Lipitor -) 20 mg PO [facility] Last Admin: 08/08/18 23:22 Dose: 20 mg Docusate Sodium (Colace -) 200 mg PO [facility] Last Admin: 08/08/18 23:22 Dose: 200 mg Finasteride (Proscar -) 5 mg PO [facility] Last Admin: 08/08/18 23:21 Dose: 5 mg Sodium Chloride (Normal Saline -) 1,000 mls @ 75 mls/hr IV ASDIR [facility] Last Admin: 08/09/18 10:39 Dose: 75 mls/hr Caspofungin 50 mg/ Sodium (Chloride) 250 mls @ 250 mls/hr IVPB Q24H [facility] Last Admin: 08/09/18 13:27 Dose: 250 mls/hr Metoprolol Tartrate (Lopressor -) 12.5 mg PO BID [facility] Last Admin: 08/09/18 10:37 Dose: 12.5 mg Pantoprazole Sodium (Protonix -) 40 mg PO [facility] Last Admin: 08/08/18 23:22 Dose: 40 mg Tamsulosin HCl (Flomax -) 0.4 mg PO DAILY@0830 [facility] Last Admin: 08/09/18 08:50 Dose: 0.4 mg - Objective Vital Signs: Vital Signs Temperature 98.1 F 08/09/18 10:00 Pulse Rate 65 08/09/18 10:00 Respiratory Rate 18 08/09/18 10:00 Blood Pressure 122/48 L 08/09/18 10:00 O2 Sat by Pulse Oximetry (%) 96 08/09/18 09:00 Constitutional: Yes: No Distress, Calm Eyes: Yes: Conjunctiva Clear HENT: Yes: Atraumatic Cardiovascular: Yes: Regular Rate and Rhythm Respiratory: Yes: Regular, CTA Bilaterally Gastrointestinal: Yes: Normal Bowel Sounds, Soft, Other (non tender) Musculoskeletal: Yes: Muscle Weakness Extremities: Yes: WNL Edema: No Neurological: Yes: Alert, Confusion Psychiatric: Yes: Alert Labs: CBC, BMP 08/09/18 06:10 08/09/18 06:10 INR, PTT INR 1.13 (0.83-1.09) H 08/05/18 22:45 Microbiology 08/06/18 14:30 Blood - Peripheral Venous Blood Culture - Final Yeast Like Organism 08/06/18 00:05 Blood - Peripheral Venous Yeast/Fungus Identification - Preliminary Yeast Like Organism 08/05/18 22:48 Blood - Peripheral Venous Blood Culture - Final Yeast Like Organism 08/06/18 00:05 Blood - Peripheral Venous Blood Culture - Final Yeast Like Organism 08/06/18 13:40 Blood - Peripheral Venous Blood Culture - Final Yeast Like Organism 08/05/18 23:00 Urine - Urine Clean Catch Urine Culture - Final Enterococcus Faecalis Problem List - Problems (1) BPH (benign prostatic hyperplasia) Assessment/Plan: -urology consult placed -continue with tamsulosin and proscar Code(s): N40.0 - BENIGN PROSTATIC HYPERPLASIA WITHOUT LOWER URINRY TRACT SYMP (2) HLD (hyperlipidemia) Assessment/Plan: -continue with atorvastatin Code(s): E78.5 - HYPERLIPIDEMIA, UNSPECIFIED (3) HTN (hypertension) Assessment/Plan: -continue with metoprolol Code(s): I10 - ESSENTIAL (PRIMARY) HYPERTENSION (4) UTI (urinary tract infection) Assessment/Plan: -ID on board -UC positive with enterococcus faecalis -UA show 2+ leuk, 3+ blood -continue with zosyn -tylenol IVPB PRN for temp >100F -WBC 3.7 Code(s): N39.0 - URINARY TRACT INFECTION, SITE NOT SPECIFIED (5) Urinary retention Assessment/Plan: - care -urology consult pending -continue with tamsulosin and proscar Code(s): R33.9 - RETENTION OF URINE, UNSPECIFIED (6) Poor circulation of extremity Assessment/Plan: -vascular consult Code(s): R09.89 - OTH SYMPTOMS AND SIGNS INVOLVING THE CIRC AND RESP SYSTEMS (7) Altered mental status Assessment/Plan: -confused alert and awake to self -2/2 infection? vs poss dementia? -neurology consult placed and recommendation appreciated -head ct scan reviewed -EEG Code(s): R41.82 - ALTERED MENTAL STATUS, UNSPECIFIED (8) EDI (acute kidney injury) Assessment/Plan: -renal on board -BUN/Cr 28/1.4 -renal US show bilateral renal simple cysts Code(s): N17.9 - ACUTE KIDNEY FAILURE, UNSPECIFIED (9) Fungemia Assessment/Plan: -BC postive for yeast like organism -optho consult placed -HIV and yeast identification ordered stat -pending echo, abdomen/pelvic/chest CT scan without contrast - Code(s): B49 - UNSPECIFIED MYCOSIS
[2018-08-09] MEDS: DOCUSATE SODIUM 100 MG CAPSULE (FP) PO SCH (21:34)
[2018-08-09] MEDS: PANTOPRAZOLE 40 MG TABLET (FP) PO SCH (21:35)
[2018-08-09] MEDS: ATORVASTATIN CA 20 MG TABLET (FP) PO SCH (21:35)
[2018-08-09] MEDS: ACETAMINOPHEN 325 MG TABLET (FP) PO PRN (21:38)
[2018-08-09] MEDS: FINASTERIDE 5 MG TABLET (FP) PO SCH (22:59)
[2018-08-10] MEDS: AMOXICILLIN 500 MG CAPSULE (FP) PO SCH ×3 (05:40→21:51)
[2018-08-10] MEDS: SODIUM CHLORIDE 1,000 ML IV SCH ×2 (05:42→11:10)
[2018-08-10 07:18] LABS: HEMATOCRIT 24.1 % (35.4-49); HEMOGLOBIN 8.2 GM/dL (11.7-16.9); MCH 30.2 pg (25.7-33.7); MEAN PLT VOLUME 8.3 fl (7.5-11.1); PLATELET COUNT 133 K/MM3 (134-434); RBC 2.71 M/mm3 (4.00-5.60); RDW 13.9 % (11.9-15.9); WHITE BLOOD COUNT 4.2 K/mm3 (4.0-10.0)
[2018-08-10 07:57] LABS: ALBUMIN 2.1 g/dl (3.4-5.0); ALK PHOS 166 U/L (45-117); ANION GAP 6 MMOL/L (8-16); BILIRUBIN,TOTAL 0.4 mg/dL (0.2-1); BLOOD UREA NITROGEN 24 mg/dL (7-18); CALCIUM 7.2 mg/dL (8.5-10.1); CHLORIDE 106 mmol/L (98-107); CO2 27 mmol/L (21-32); CREATININE 1.1 mg/dL (0.55-1.3); GLUCOSE,RANDOM 87 mg/dL (74-106); POTASSIUM 4.3 mmol/L (3.5-5.1); SGOT/AST 30 U/L (15-37); SGPT/ALT 35 U/L (13-61); SODIUM 139 mmol/L (136-145); TOT PROT 5.2 g/dl (6.4-8.2)
[2018-08-10] MEDS: TAMSULOSIN HCL 0.4 MG CAP PO SCH (08:37)
[2018-08-10] MEDS: METOPROLOL TARTRATE 25 MG TABLET (FP) PO SCH ×2 (10:53→21:51)
--- NOTE | 2018-08-10 11:52 | PN ---
Progress Note (short form) - Note Progress Note: Renal follow up for EDI/CKD Pt seen and examined at the bedside awake and alert no complaints Vital Signs Temperature 98.8 F 08/10/18 09:38 Pulse Rate 58 L 08/10/18 05:00 Respiratory Rate 20 08/10/18 09:38 Blood Pressure 139/55 L 08/10/18 09:38 O2 Sat by Pulse Oximetry (%) 98 08/09/18 19:49 Intake & Output 08/07/18 08/08/18 08/09/18 08/10/18 22:59 23:59 23:59 23:59 Intake Total 1680 1410 Output Total 1400 550 Balance 280 860 Weight NAD RRR, no M/R CTA soft NT/ND vazquez in place no LE edema, clubbing or cyanosis CBC, BMP 08/10/18 06:25 08/10/18 06:25 Current Medications Acetaminophen (Tylenol -) 650 mg PO Q6H PRN PRN Reason: FEVER Last Admin: 08/09/18 21:38 Dose: 650 mg Amoxicillin (Amoxicillin -) 500 mg PO TID [facility] Last Admin: 08/10/18 05:40 Dose: 500 mg Atorvastatin Calcium (Lipitor -) 20 mg PO [facility] Last Admin: 08/09/18 21:35 Dose: 20 mg Docusate Sodium (Colace -) 200 mg PO [facility] Last Admin: 08/09/18 21:34 Dose: 200 mg Finasteride (Proscar -) 5 mg PO [facility] Last Admin: 08/09/18 22:59 Dose: 5 mg Sodium Chloride (Normal Saline -) 1,000 mls @ 75 mls/hr IV ASDIR [facility] Last Admin: 08/10/18 11:10 Dose: Not Given Caspofungin 50 mg/ Sodium (Chloride) 250 mls @ 250 mls/hr IVPB Q24H [facility] Last Admin: 08/09/18 13:27 Dose: 250 mls/hr Metoprolol Tartrate (Lopressor -) 12.5 mg PO BID [facility] Last Admin: 08/10/18 10:53 Dose: 12.5 mg Pantoprazole Sodium (Protonix -) 40 mg PO [facility] Last Admin: 08/09/18 21:35 Dose: 40 mg Tamsulosin HCl (Flomax -) 0.4 mg PO DAILY@0830 [facility] Last Admin: 08/10/18 08:37 Dose: 0.4 mg 88 year old gentleman with hx of Metastatic colon Ca s/p resection, CAD, HTN, HLD, Aortic Mural Hematoma, BPH who presented with gross hematuria following discontinuation of vazquez catheter with EDI. #EDI/CKD in setting of urinary retention #Cystitis vs. pylonephritis #Hypertension #BPH #Hematuria in setting of urinary tract infection Renal function now improved and stable can dc IVF if able to tolerate oral diet continue vazquez Abx as per ID Thank you Ronn Leos DO
--- NOTE | 2018-08-10 12:33 | PN ---
Progress Note, Physician Chief Complaint: Hematuria History of Present Illness: awake and alert, confused NAD denies complaints of chest pain, SOB afebrile and no leukocytosis - Current Medication List Current Medications: Active Medications Acetaminophen (Tylenol -) 650 mg PO Q6H PRN PRN Reason: FEVER Last Admin: 08/09/18 21:38 Dose: 650 mg Amoxicillin (Amoxicillin -) 500 mg PO TID [facility] Last Admin: 08/10/18 05:40 Dose: 500 mg Atorvastatin Calcium (Lipitor -) 20 mg PO [facility] Last Admin: 08/09/18 21:35 Dose: 20 mg Docusate Sodium (Colace -) 200 mg PO [facility] Last Admin: 08/09/18 21:34 Dose: 200 mg Finasteride (Proscar -) 5 mg PO [facility] Last Admin: 08/09/18 22:59 Dose: 5 mg Sodium Chloride (Normal Saline -) 1,000 mls @ 75 mls/hr IV ASDIR [facility] Last Admin: 08/10/18 11:10 Dose: Not Given Caspofungin 50 mg/ Sodium (Chloride) 250 mls @ 250 mls/hr IVPB Q24H [facility] Last Admin: 08/09/18 13:27 Dose: 250 mls/hr Metoprolol Tartrate (Lopressor -) 12.5 mg PO BID [facility] Last Admin: 08/10/18 10:53 Dose: 12.5 mg Pantoprazole Sodium (Protonix -) 40 mg PO [facility] Last Admin: 08/09/18 21:35 Dose: 40 mg Tamsulosin HCl (Flomax -) 0.4 mg PO DAILY@0830 [facility] Last Admin: 08/10/18 08:37 Dose: 0.4 mg - Objective Vital Signs: Vital Signs Temperature 98.8 F 08/10/18 09:38 Pulse Rate 58 L 08/10/18 05:00 Respiratory Rate 20 08/10/18 09:38 Blood Pressure 139/55 L 08/10/18 09:38 O2 Sat by Pulse Oximetry (%) 96 08/10/18 09:00 Constitutional: Yes: No Distress, Calm, Cachectic Cardiovascular: Yes: Regular Rate and Rhythm Respiratory: Yes: Regular Gastrointestinal: Yes: Normal Bowel Sounds, Soft Genitourinary: Yes: Guerra Present Musculoskeletal: Yes: Muscle Weakness Extremities: Yes: Other (generalized atrophy) Wound/Incision: Yes: Dressing Dry and Intact Neurological: Yes: Alert, Pre-Existing Deficit Psychiatric: Yes: Alert Labs: CBC, BMP 08/10/18 06:25 08/10/18 06:25 INR, PTT INR 1.13 (0.83-1.09) H 08/05/18 22:45 Problem List - Problems (1) EDI (acute kidney injury) Assessment/Plan: -Nephrology on board -Guerra reinserted -Cr improved and trending down -D/C IVF and encourage PO fluids -monitor trend Code(s): N17.9 - ACUTE KIDNEY FAILURE, UNSPECIFIED (2) Altered mental status Assessment/Plan: / to metabolic encephalopathy -IV ABX -Seen by ID and Neurology -EEG done today-results pending -CT head unremarkable Code(s): R41.82 - ALTERED MENTAL STATUS, UNSPECIFIED (3) Fungemia Assessment/Plan: -Cultures: Microbiology 08/09/18 14:30 Blood - Peripheral Venous Blood Culture - Preliminary NO GROWTH OBTAINED AFTER 24 HOURS, INCUBATION TO CONTINUE FOR 4 DAYS. 08/09/18 13:10 Blood - Peripheral Venous Blood Culture - Preliminary NO GROWTH OBTAINED AFTER 24 HOURS, INCUBATION TO CONTINUE FOR 4 DAYS. 08/06/18 14:30 Blood - Peripheral Venous Blood Culture - Final Yeast Like Organism 08/06/18 00:05 Blood - Peripheral Venous Yeast/Fungus Identification - Preliminary Yeast Like Organism 08/05/18 22:48 Blood - Peripheral Venous Blood Culture - Final Yeast Like Organism 08/06/18 00:05 Blood - Peripheral Venous Blood Culture - Final Yeast Like Organism 08/06/18 13:40 Blood - Peripheral Venous Blood Culture - Final Yeast Like Organism 08/05/18 23:00 Urine - Urine Clean Catch Urine Culture - Final Enterococcus Faecalis -ID on board -IV abx and antifungal -afebrile -No leukocytosis Code(s): B49 - UNSPECIFIED MYCOSIS (4) Hematuria Assessment/Plan: -Guerra reinserted -Urology consult pending -Urine clear Code(s): R31.9 - HEMATURIA, UNSPECIFIED (5) UTI (urinary tract infection) Assessment/Plan: -Cultures: Microbiology 08/05/18 23:00 Urine - Urine Clean Catch Urine Culture - Final Enterococcus Faecalis -ID on board -IV abx and antifungal -afebrile -No leukocytosis Code(s): N39.0 - URINARY TRACT INFECTION, SITE NOT SPECIFIED (6) Anemia Assessment/Plan: -2/2 to hematuria -transfuse only if Hg below 7.0, to avoid fluid overload -Check Thyroid, B12, iron profile and stool ob to r/o any other underlying etiology -monitor trend Code(s): D64.9 - ANEMIA, UNSPECIFIED (7) Malnourished Assessment/Plan: -Added Prosource -Seen by Speech pathology -Advance diet to soft with thin liquids -Add ensure tid -Multivitamin -Vit C 500 mg po bid Code(s): E46 - UNSPECIFIED PROTEIN-CALORIE MALNUTRITION Qualifiers: Malnutrition type: protein-calorie malnutrition Assessment/Plan see problem list Physical therapy SCD's
--- NOTE | 2018-08-10 12:52 | CONSULT ---
<Elvie Clark - Last Filed: 08/10/18 12:53> - Consultation REQUESTING PROVIDER: CONSULT REQUEST: We have been asked to surgically evaluate this patient for PAD. PCP:Autumn Salamanca HISTORY OF PRESENT ILLNESS: The patient is an 88 year old with a PMH of metastatic colon CA s/p resection, CAD s/p cath, HLD, HTN, DM, aortic mural hematoma, and BPH sent in from [facility] for hematuria after having his vazquez removed. Denies fever, chills, N/V/D/C, or blood in stool. Allergies: NKDA Social: denies toxic habits. PMHx: As stated in HPI Home Medications Medication Instructions Recorded Tamsulosin HCl 0.4 mg PO HS 09/30/12 Metoprolol Tartrate [Lopressor -] 12.5 mg PO BID 08/02/13 Simvastatin [Zocor] 40 mg PO HS 08/04/13 Cholecalciferol (Vitamin D3) 2,000 unit PO DAILY 10/15/15 [Vitamin D] Docusate Sodium [Colace -] 200 mg PO HS 10/15/15 Finasteride [Proscar -] 5 mg PO HS 10/15/15 Omeprazole [Prilosec] 40 mg PO HS 10/15/15 Aspirin [ASA -] 81 mg PO Q2D 10/24/15 Allergies Allergy/AdvReac Type Severity Reaction Status Date / Time No Known Drug Allergies Allergy Verified 08/05/18 21:40 PHYSICAL EXAM: GENERAL: Awake, alert, and fully oriented, in no acute distress. HEAD: Normal with no signs of trauma. EYES: sclera anicteric, conjunctiva clear. LUNGS: unlabored resp on RA, No accessory muscle use. LOWER EXTREMITIES: chronic skin changes, no lesions or open wounds, B/L heels with early stage 1 pressure ulcers- TTP, Legs and feet warm and well perfused with faintly palpable 1+ pulses b/l DP and PT, No calf tenderness. No peripheral edema. NEUROLOGICAL: Normal speech, gait not observed. PSYCH: Cooperative. Good eye contact. Appropriate mood and affect. SKIN: Warm, dry, normal turgor, no rashes or lesions noted. Vital Signs Temperature 98.8 F 08/10/18 09:38 Pulse Rate 58 L 08/10/18 05:00 Respiratory Rate 20 08/10/18 09:38 Blood Pressure 139/55 L 08/10/18 09:38 O2 Sat by Pulse Oximetry (%) 96 08/10/18 09:00 Lab Results WBC 4.2 K/mm3 (4.0-10.0) 08/10/18 06:25 RBC 2.71 M/mm3 (4.00-5.60) L 08/10/18 06:25 Hgb 8.2 GM/dL (11.7-16.9) L 08/10/18 06:25 Hct 24.1 % (35.4-49) L 08/10/18 06:25 MCV 89.0 fl (80-96) 08/10/18 06:25 MCHC 34.0 g/dl (32.0-35.9) 08/10/18 06:25 RDW 13.9 % (11.9-15.9) 08/10/18 06:25 Plt Count 133 K/MM3 (134-434) L 08/10/18 06:25 Sodium 139 mmol/L (136-145) 08/10/18 06:25 Potassium 4.3 mmol/L (3.5-5.1) 08/10/18 06:25 Chloride 106 mmol/L (98-107) 08/10/18 06:25 Carbon Dioxide 27 mmol/L (21-32) 08/10/18 06:25 Anion Gap 6 MMOL/L (8-16) L 08/10/18 06:25 BUN 24 mg/dL (7-18) H 08/10/18 06:25 Creatinine 1.1 mg/dL (0.55-1.3) 08/10/18 06:25 Random Glucose 87 mg/dL (74-106) 08/10/18 06:25 Calcium 7.2 mg/dL (8.5-10.1) L 08/10/18 06:25 INR 1.13 (0.83-1.09) H 08/05/18 22:45 Problem List - Problems (1) PAD (peripheral artery disease) Assessment/Plan: Patient with significant PMHx and PAD with warm well perfused distal extremities with no indication for vascular intervention. 1) b/l Heel pads 2) Off load pressure sensitive areas 3) b/l gel heel protectors on skin 4) follow up with vascular as out patient. Evaluation and plan discussed with Dr Palencia Code(s): I73.9 - PERIPHERAL VASCULAR DISEASE, UNSPECIFIED <Ravinder Palenciay - Last Filed: 08/12/18 08:23> - Consultation REQUESTING PROVIDER: CONSULT REQUEST: We have been asked to surgically evaluate this patient for ( specify). PCP:Autumn Salamanca HISTORY OF PRESENT ILLNESS: PMHx: PSHx: Home Medications Medication Instructions Recorded Tamsulosin HCl 0.4 mg PO HS 09/30/12 Metoprolol Tartrate [Lopressor -] 12.5 mg PO BID 08/02/13 Simvastatin [Zocor] 40 mg PO HS 08/04/13 Cholecalciferol (Vitamin D3) 2,000 unit PO DAILY 10/15/15 [Vitamin D] Docusate Sodium [Colace -] 200 mg PO HS 10/15/15 Finasteride [Proscar -] 5 mg PO HS 10/15/15 Omeprazole [Prilosec] 40 mg PO HS 10/15/15 Aspirin [ASA -] 81 mg PO Q2D 10/24/15 Allergies Allergy/AdvReac Type Severity Reaction Status Date / Time No Known Drug Allergies Allergy Verified 08/05/18 21:40 REVIEW OF SYSTEMS: CONSTITUTIONAL: Absent: fever, chills, diaphoresis, generalized weakness, malaise, loss of appetite, weight change CARDIOVASCULAR: Absent: chest pain, syncope, palpitations, irregular heart rate, lightheadedness , peripheral edema RESPIRATORY: Absent: cough, shortness of breath, dyspnea with exertion, wheezing, stridor, hemoptysis GASTROINTESTINAL: Absent: abdominal pain, abdominal distension, nausea, vomiting, diarrhea, constipation, melena, hematochezia GENITOURINARY: Absent: dysuria, frequency, urgency, hesitancy, hematuria, flank pain, genital pain MUSCULOSKELETAL: Absent: myalgia, arthralgia, joint swelling, back pain, neck pain SKIN: Absent: rash, itching, pallor HEMATOLOGIC/IMMUNOLOGIC: Absent: easy bleeding, easy bruising, lymphadenopathy NEUROLOGIC: Absent: headache, focal weakness, paresthesias, dizziness, unsteady gait, seizure, mental status changes, bladder or bowel incontinence PSYCHIATRIC: Absent: anxiety, depression, suicidal or homicidal ideation, hallucinations. PHYSICAL EXAM: GENERAL: Awake, alert, and fully oriented, in no acute distress. HEAD: Normal with no signs of trauma. EYES: PERRL, sclera anicteric, conjunctiva clear. NECK: Normal ROM, supple without lymphadenopathy, JVD, or masses. LUNGS: Clear to auscultation bilat anteriorly. No wheezes, and no crackles. No accessory muscle use. HEART: Regular rate and rhythm. No murmurs ABDOMEN: Soft, nontender, not distended, normoactive bowel sounds, no guarding, no rebound, no masses. No organomegaly. MUSCULOSKELETAL: Normal ROM at all joints. No bony deformities or tenderness. No CVA tenderness. UPPER EXTREMITIES: 2+ pulses, warm, well-perfused. No cyanosis. Cap refill <2 seconds. No peripheral edema. LOWER EXTREMITIES: 2+ pulses, warm, well-perfused. No calf tenderness. No peripheral edema. NEUROLOGICAL: Normal speech, gait not observed. PSYCH: Cooperative. Good eye contact. Appropriate mood and affect. SKIN: Warm, dry, normal turgor, no rashes or lesions noted. Vital Signs Temperature 98.4 F 08/12/18 05:52 Pulse Rate 64 08/12/18 05:52 Respiratory Rate 20 08/12/18 05:52 Blood Pressure 141/57 L 08/12/18 05:52 O2 Sat by Pulse Oximetry (%) 93 L 08/11/18 21:00 Lab Results WBC 5.9 K/mm3 (4.0-10.0) 08/12/18 06:15 RBC 2.77 M/mm3 (4.00-5.60) L 08/12/18 06:15 Hgb 8.4 GM/dL (11.7-16.9) L 08/12/18 06:15 Hct 24.6 % (35.4-49) L 08/12/18 06:15 MCV 88.7 fl (80-96) 08/12/18 06:15 MCHC 34.3 g/dl (32.0-35.9) 08/12/18 06:15 RDW 13.9 % (11.9-15.9) 08/12/18 06:15 Plt Count 165 K/MM3 (134-434) D 08/12/18 06:15 Sodium 137 mmol/L (136-145) 08/11/18 06:30 Potassium 4.3 mmol/L (3.5-5.1) 08/11/18 06:30 Chloride 105 mmol/L (98-107) 08/11/18 06:30 Carbon Dioxide 28 mmol/L (21-32) 08/11/18 06:30 Anion Gap 4 MMOL/L (8-16) L 08/11/18 06:30 BUN 19 mg/dL (7-18) H 08/11/18 06:30 Creatinine 1.0 mg/dL (0.55-1.3) 08/11/18 06:30 Random Glucose 86 mg/dL (74-106) 08/11/18 06:30 Calcium 7.7 mg/dL (8.5-10.1) L 08/11/18 06:30 INR 1.13 (0.83-1.09) H 08/05/18 22:45 This patient was recently found to have thickening of the thoracic aortic wall 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 He is asymptomatic and has no evidence for aneurysm on the current CT of the chest. It is unlikely that the fungemia is related to this problem. Repeat Chest CT in several days is recommended to look for changes in the size or density of the aorta wall.
[2018-08-10] MEDS ORDERED: PT OWN MED DRAWER 7, Y5N ONE ×2 (13:45→21:47)
[2018-08-10] MEDS: CASPOFUNGIN ACETATE 50 MG in SODIUM CHLORIDE 250 ML IVPB SCH (14:51)
--- NOTE | 2018-08-10 15:59 | PN ---
Progress Note (short form) - Note Progress Note: awake and alert no visual complaints denies prosthetic devices feels much better today was up and ambulating-feeling better today Vital Signs Period Temp Pulse Resp BP Sys/Scott Pulse Ox Last 24 Hr 97.8 F-98.8 F 55-66 18-20 119-143/53-68 96-98 cor-rrr lungs clear abd soft,nt ext no edema Microbiology 08/09/18 14:30 Blood - Peripheral Venous Blood Culture - Preliminary NO GROWTH OBTAINED AFTER 24 HOURS, INCUBATION TO CONTINUE FOR 4 DAYS. 08/09/18 13:10 Blood - Peripheral Venous Blood Culture - Preliminary NO GROWTH OBTAINED AFTER 24 HOURS, INCUBATION TO CONTINUE FOR 4 DAYS. 08/06/18 14:30 Blood - Peripheral Venous Blood Culture - Final Yeast Like Organism 08/06/18 00:05 Blood - Peripheral Venous Yeast/Fungus Identification - Preliminary Yeast Like Organism 08/05/18 22:48 Blood - Peripheral Venous Blood Culture - Final Yeast Like Organism 08/06/18 00:05 Blood - Peripheral Venous Blood Culture - Final Yeast Like Organism 08/06/18 13:40 Blood - Peripheral Venous Blood Culture - Final Yeast Like Organism 08/05/18 23:00 Urine - Urine Clean Catch Urine Culture - Final Enterococcus Faecalis Current Medications Acetaminophen (Tylenol -) 650 mg PO Q6H PRN PRN Reason: FEVER Last Admin: 08/09/18 21:38 Dose: 650 mg Amoxicillin (Amoxicillin -) 500 mg PO TID [facility] Last Admin: 08/10/18 14:52 Dose: 500 mg Atorvastatin Calcium (Lipitor -) 20 mg PO HS [facility] Last Admin: 08/09/18 21:35 Dose: 20 mg Docusate Sodium (Colace -) 200 mg PO HS [facility] Last Admin: 08/09/18 21:34 Dose: 200 mg Finasteride (Proscar -) 5 mg PO [facility] Last Admin: 08/09/18 22:59 Dose: 5 mg Sodium Chloride (Normal Saline -) 1,000 mls @ 75 mls/hr IV ASDIR [facility] Last Admin: 08/10/18 11:10 Dose: Not Given Caspofungin 50 mg/ Sodium (Chloride) 250 mls @ 250 mls/hr IVPB Q24H [facility] Last Admin: 08/10/18 14:51 Dose: 250 mls/hr Metoprolol Tartrate (Lopressor -) 12.5 mg PO BID [facility] Last Admin: 08/10/18 10:53 Dose: 12.5 mg Pantoprazole Sodium (Protonix -) 40 mg PO HS [facility] Last Admin: 08/09/18 21:35 Dose: 40 mg Tamsulosin HCl (Flomax -) 0.4 mg PO DAILY@0830 [facility] Last Admin: 08/10/18 08:37 Dose: 0.[address] scan reports reviewed a/p fungemia- ?urinary source with vazquez manipulation-but urine culture didnot grow yeast! not diabetic, not on steroids continue cancidas repeat blood cultures echo otho consult r/o endophthalmitis spoke with surgery- have asked them to review ct scans Hematuria urinary retention possible UTI Problem List - Problems (1) UTI (urinary tract infection) Code(s): N39.0 - URINARY TRACT INFECTION, SITE NOT SPECIFIED (2) Hematuria Code(s): R31.9 - HEMATURIA, UNSPECIFIED (3) Urinary retention Code(s): R33.9 - RETENTION OF URINE, UNSPECIFIED
--- NOTE | 2018-08-10 16:12 | ECHO ---
Name: JAY JIMENEZ Exam:Adult Echocardiogram Study Date: 08/10/2018 12:52 PM Age: 88 yrs Reason For Study: R/O Endocarditis Height: 72 in Weight: 137 lb BSA: 1.8 m2 MMode/2D Measurements & Calculations IVSd: 0.79 cm Ao root diam: 2.6 cm LVIDd: 5.5 cm LA dimension: 3.7 cm LVIDs: 3.5 cm LVPWd: 0.77 cm EDV(Teich): 149.2 ml LAV (MOD-bp): 80.0 ml ESV(Teich): 50.6 ml TAPSE: 2.6 cm Doppler Measurements & Calculations MV E max diandra: 45.5 cm/sec Ao V2 max: 104.2 cm/sec MV A max diandra: 62.5 cm/sec Ao max P.3 mmHg MV E/A: 0.73 AI P1/2t: 823.6 msec MV dec time: 0.25 sec AI max diandra: 311.9 cm/sec LV V1 max P.4 mmHg AI max P.9 mmHg LV V1 max: 77.1 cm/sec AI dec slope: 110.9 cm/sec2 TR max diandra: 206.3 cm/sec PI end-d diandra: 84.8 cm/sec TR max P.0 mmHg Med Peak E' Diandra: 2.2 cm/sec Med E/e': 20.7 Lat Peak E' Diandra: 4.1 cm/sec Lat E/e': 11.2 Left Ventricle The left ventricular size, thickness and function are normal. Ejection Fraction = 65-70%. The transmi tral spectral Doppler flow pattern is suggestive of impaired LV relaxation. Right Ventricle The right ventricle is normal in size and function. Atria The left atrium is mildly dilated. Right atrial size is normal. Mitral Valve There is mild to moderate mitral annular calcification. There is trace to mild mitral regurgitation. Tricuspid Valve The tricuspid valve is not well visualized, but is grossly normal. There is mild tricuspid regurgitat ion. Right ventricular systolic pressure is normal. Aortic Valve There is mild to moderate aortic sclerosis.;. No hemodynamically significant valvular aortic stenosis . Mild aortic regurgitation. Pulmonic Valve The pulmonic valve is not well seen, but is grossly normal. Great Vessels The aortic root is normal size. Normal aortic arch, descending and ascending aorta. Pericardium/Pleura There is no pericardial effusion. Interpretation Summary The left ventricular size, thickness and function are normal. Ejection Fraction = 65-70%. The transmitral spectral Doppler flow pattern is suggestive of impaired LV relaxation. The right ventricle is normal in size and function. The left atrium is mildly dilated. Right atrial size is normal. There is mild to moderate aortic sclerosis.; Mild aortic regurgitation. No hemodynamically significan t valvular aortic stenosis. There is mild to moderate mitral annular calcification. There is trace to mild mitral regurgitation. MD Alyson Kramer 08/10/2018 04:12 PM
--- NOTE | 2018-08-10 16:45 | CONSULT ---
Admitting History and Physical - Primary Care Physician PCP: Reynaldo Lynch - Past Medical History P[employer]ING [employer] WORK[employer]: Yes: Migraine Cardiovascular: Yes: AFIB, HTN, Hyperlipdemia Gastrointestinal: Yes: Cancer (Colon), GERD, Other (Hernia) Renal/: Yes: BPH Heme/Onc: Yes: Anemia - Past Surgical History Additional Past Surgical History: colon resection - Smoking History Smoking history: Never smoked Have you smoked in the past 12 months: No Aproximately how many cigarettes per day: 0 - Alcohol/Substance Use Hx Alcohol Use: No History of Substance Use: reports: None - Social History ADL: Support Services History of Recent Travel: No History - Admission Reason For Visit: URINARY TRACT INFECTION,SEPSIS - Diagnostics X-ray: Report Reviewed CT Scan: Report Reviewed - General Mental Status: Forgetful Attention: Intact Ability to Follow Directions: Excellent Head/Neck Control: WFL - Hearing Hearing: Normal Hearing Aide: No Speech Evaluation - Communication Primary Language: MACEDONIAN Communication: Yes: Within Normal Limits Oral Expression Ability: Yes: No Impairment - Speech Production Able to Make Needs Known: Yes: WNL Intelligibility: Yes: WNL - Speech Characteristics Voice Loudness: Normal Voice Pitch: Yes: Normal Voice Phonatory-based Quality: Yes: Normal Speech Pattern: Normal Speech Clarity: < 100% Nasal Resonance: Normal Articulation: Yes: Precise Rate of Speech: Intact - Language/Auditory Comprehension Follows: Yes: 1 Stage Simple Commands - Language/Verbal Expression Able to Respond to Simple Queries: Yes: WNL Able to Communicate Wants and Needs: Yes: WNL Functional Communication Status: Yes: WNL - Swallow Evaluation/Bedside Assessment Current Nutritional Intake: Honey Textured Liquids, Other (choppeed) Dentition: Yes: Adequate Facial Symmetry at Rest: Facial Droop Left (slight) Facial Symmetry on Retraction: Symmetrical Sensation: Normal Against Resistance Opening: Normal Against Resistance Closing: Normal Pucker Lips: Normal Smile: Normal Lingual Movement: Normal, Symmetric Lingual Speed of Movement: Normal Lingual Movement Strgth Against Opposition: Normal Lingual Movement Characteristics: Normal Velopharyngeal Movement: Normal Laryngeal Elevation: WFL Laryngeal Movement: Able to Palpate Rate of Intake: WFL Bolus Size: WFL Labial Seal: WFL Chewing: WFL Oral Prep Time: WFL A-P Transit: WFL Pocketing: None Timing of Swallow: WFL Coughing/Throat Clear: No Change in Voice: No Recommendations - Speech Evaluation, Impression/Plan Impression: Swallowing overtly intact. Verbal. Forgetful. - Dysphagia Impressions/Plan Swallowing Skills: WFL Dysphagia Impressions: Minimal Impairment *Silent aspiration: cannot be R/O at bedside Dysphagia Treatment Plan: Small Bites, Clear Pocket Food, Trial Feedings, Safe Rate, 1/2 tsp. at a time, OOB for meals - Recommendations Diet Consistency: Regular (Soft, easy to chew) Liquids: Thin Liquids
[2018-08-10] MEDS: PANTOPRAZOLE 40 MG TABLET (FP) PO SCH (21:51)
[2018-08-10] MEDS: ATORVASTATIN CA 20 MG TABLET (FP) PO SCH (21:51)
[2018-08-10] MEDS: FINASTERIDE 5 MG TABLET (FP) PO SCH (21:51)
[2018-08-10] MEDS: DOCUSATE SODIUM 100 MG CAPSULE (FP) PO SCH (21:52)
[2018-08-10] MEDS: ASCORBIC ACID 500 MG TABLET (FP) PO SCH (21:52)
[2018-08-11] MEDS: AMOXICILLIN 500 MG CAPSULE (FP) PO SCH ×3 (06:05→21:47)
[2018-08-11 07:31] LABS: BASO % 0.6 % (0-2.0); EOS % 6.1 % (0-4.5); HEMATOCRIT 24.4 % (35.4-49); HEMOGLOBIN 8.4 GM/dL (11.7-16.9); LYMPH % 34.3 % (8-40); MCH 31.1 pg (25.7-33.7); MCHC 34.6 g/dl (32.0-35.9); MEAN PLT VOLUME 8.6 fl (7.5-11.1); MONO % 12.9 % (3.8-10.2); NEUT % 46.1 % (42.8-82.8); PLATELET COUNT 135 K/MM3 (134-434); RBC 2.71 M/mm3 (4.00-5.60); RDW 14.2 % (11.9-15.9); WHITE BLOOD COUNT 4.5 K/mm3 (4.0-10.0)
[2018-08-11 08:53] LABS: CO2 28 mmol/L (21-32)
[2018-08-11 09:08] LABS: ALK PHOS 146 U/L (45-117); ANION GAP 4 MMOL/L (8-16); BILIRUBIN,TOTAL 0.3 mg/dL (0.2-1); BLOOD UREA NITROGEN 19 mg/dL (7-18); CALCIUM 7.7 mg/dL (8.5-10.1); CHLORIDE 105 mmol/L (98-107); GLUCOSE,RANDOM 86 mg/dL (74-106); POTASSIUM 4.3 mmol/L (3.5-5.1); SGOT/AST 19 U/L (15-37); SGPT/ALT 30 U/L (13-61); SODIUM 137 mmol/L (136-145)
[2018-08-11] MEDS ORDERED: MULTIVIT-MINERALS ORAL LIQUID PO SCH (10:00)
[2018-08-11] MEDS: AMINO ACIDS/PROTEIN HYDROLYS 30 ML LIQUID.PKT PO SCH ×2 (10:47→17:05)
[2018-08-11] MEDS: TAMSULOSIN HCL 0.4 MG CAP PO SCH (10:47)
[2018-08-11] MEDS: METOPROLOL TARTRATE 25 MG TABLET (FP) PO SCH ×2 (11:04→21:33)
[2018-08-11] MEDS: ASCORBIC ACID 500 MG TABLET (FP) PO SCH ×2 (11:04→21:33)
[2018-08-11] MEDS: MULTIVITAMINS (DAILY MVI) TABLET (FP) PO SCH (11:04)
--- NOTE | 2018-08-11 11:18 | PN ---
Progress Note, Physician Chief Complaint: Hematuria History of Present Illness: awake and alert, confused NAD denies complaints of chest pain, SOB afebrile and no leukocytosis - Current Medication List Current Medications: Active Medications Acetaminophen (Tylenol -) 650 mg PO Q6H PRN PRN Reason: FEVER Last Admin: 08/09/18 21:38 Dose: 650 mg Amino Acids (Prosource No Carb Liquid Pkt) 30 ml PO BID@0800,1730 [facility] Last Admin: 08/11/18 10:47 Dose: Not Given Amoxicillin (Amoxicillin -) 500 mg PO TID [facility] Last Admin: 08/11/18 06:05 Dose: 500 mg Ascorbic Acid (Vitamin C -) 500 mg PO BID [facility] Last Admin: 08/11/18 11:04 Dose: 500 mg Atorvastatin Calcium (Lipitor -) 20 mg PO [facility] Last Admin: 08/10/18 21:51 Dose: 20 mg Docusate Sodium (Colace -) 200 mg PO [facility] Last Admin: 08/10/18 21:52 Dose: 200 mg Finasteride (Proscar -) 5 mg PO [facility] Last Admin: 08/10/18 21:51 Dose: 5 mg Caspofungin 50 mg/ Sodium (Chloride) 250 mls @ 250 mls/hr IVPB Q24H [facility] Last Admin: 08/10/18 14:51 Dose: 250 mls/hr Metoprolol Tartrate (Lopressor -) 12.5 mg PO BID [facility] Last Admin: 08/11/18 11:04 Dose: 12.5 mg Multivitamins/Minerals/Vitamin C (Tab-A-Vit -) 1 tab PO DAILY [facility] Last Admin: 08/11/18 11:04 Dose: 1 tab Pantoprazole Sodium (Protonix -) 40 mg PO [facility] Last Admin: 08/10/18 21:51 Dose: 40 mg Tamsulosin HCl (Flomax -) 0.4 mg PO DAILY@0830 [facility] Last Admin: 08/11/18 10:47 Dose: Not Given - Objective Vital Signs: Vital Signs Temperature 98.8 F 08/11/18 04:00 Pulse Rate 58 L 08/11/18 04:00 Respiratory Rate 18 08/11/18 04:00 Blood Pressure 139/56 L 08/11/18 04:00 O2 Sat by Pulse Oximetry (%) 95 08/10/18 21:00 Constitutional: Yes: Well Nourished, No Distress, Calm Cardiovascular: Yes: Regular Rate and Rhythm Respiratory: Yes: Regular Gastrointestinal: Yes: WNL Musculoskeletal: Yes: Muscle Weakness Extremities: Yes: WNL Edema: No Peripheral Pulses WNL: Yes Neurological: Yes: Alert, Pre-Existing Deficit Psychiatric: Yes: Alert Labs: CBC, BMP 08/11/18 06:30 08/11/18 06:30 INR, PTT INR 1.13 (0.83-1.09) H 08/05/18 22:45 Problem List - Problems (1) EDI (acute kidney injury) Assessment/Plan: -Nephrology on board -Guerra reinserted -Cr improved and trending down -encourage PO fluids -monitor trend Code(s): N17.9 - ACUTE KIDNEY FAILURE, UNSPECIFIED (2) Altered mental status Assessment/Plan: 07/03 to metabolic encephalopathy -IV ABX -Seen by ID and Neurology -EEG done-results pending -CT head unremarkable Code(s): R41.82 - ALTERED MENTAL STATUS, UNSPECIFIED (3) Fungemia Assessment/Plan: -Cultures: Microbiology 08/09/18 14:30 Blood - Peripheral Venous Blood Culture - Preliminary NO GROWTH OBTAINED AFTER 24 HOURS, INCUBATION TO CONTINUE FOR 4 DAYS. 08/09/18 13:10 Blood - Peripheral Venous Blood Culture - Preliminary NO GROWTH OBTAINED AFTER 24 HOURS, INCUBATION TO CONTINUE FOR 4 DAYS. 08/06/18 14:30 Blood - Peripheral Venous Blood Culture - Final Yeast Like Organism 08/06/18 00:05 Blood - Peripheral Venous Yeast/Fungus Identification - Preliminary Yeast Like Organism 08/05/18 22:48 Blood - Peripheral Venous Blood Culture - Final Yeast Like Organism 08/06/18 00:05 Blood - Peripheral Venous Blood Culture - Final Yeast Like Organism 08/06/18 13:40 Blood - Peripheral Venous Blood Culture - Final Yeast Like Organism 08/05/18 23:00 Urine - Urine Clean Catch Urine Culture - Final Enterococcus Faecalis -ID on board -IV abx and antifungal -afebrile -No leukocytosis Code(s): B49 - UNSPECIFIED MYCOSIS (4) Hematuria Assessment/Plan: -Guerra reinserted -Urology consult pending -Urine clear Code(s): R31.9 - HEMATURIA, UNSPECIFIED (5) UTI (urinary tract infection) Assessment/Plan: -Cultures: Microbiology 08/05/18 23:00 Urine - Urine Clean Catch Urine Culture - Final Enterococcus Faecalis -ID on board -IV abx and antifungal -afebrile -No leukocytosis Code(s): N39.0 - URINARY TRACT INFECTION, SITE NOT SPECIFIED (6) Anemia Assessment/Plan: -2/2 to hematuria -transfuse only if Hg below 7.0, to avoid fluid overload -Check Thyroid, B12, iron profile and stool ob to r/o any other underlying etiology -monitor trend Code(s): D64.9 - ANEMIA, UNSPECIFIED (7) Malnourished Assessment/Plan: -Added Prosource -Seen by Speech pathology -Advance diet to soft with thin liquids -Add ensure tid -Multivitamin -Vit C 500 mg po bid Code(s): E46 - UNSPECIFIED PROTEIN-CALORIE MALNUTRITION Qualifiers: Malnutrition type: protein-calorie malnutrition Assessment/Plan see problem list Physical therapy SCD's
--- NOTE | 2018-08-11 11:37 | PN ---
Progress Note, AUDIOLOGIST - Note Progress Note: Selected Entries 08/10/18 08/10/18 08/10/18 05:00 09:38 09:57 Breakfast 75% Diet Tolerated Fair Lunch Temperature 97.9 F 98.8 F 08/10/18 08/10/18 08/10/18 10:18 13:36 14:06 Breakfast 75% Diet Tolerated Fair Fair Fair Lunch 75% 75% Temperature 97.8 F 97.8 F 08/10/18 08/10/18 08/11/18 16:47 22:00 04:00 Breakfast Diet Tolerated Lunch Temperature 97.8 F 97.9 F 98.8 F 08/11/18 08/11/18 08/11/18 09:27 09:52 10:00 Breakfast 75% 75% Diet Tolerated Fair Fair Lunch Temperature 98 F Laboratory Tests 08/11/18 06:30 WBC 4.5 On soft diet/thin liquid. Tolerating diet. Happy to be upgraded to soft/thin liquid.
--- NOTE | 2018-08-11 11:38 | PN ---
Progress Note (short form) - Note Progress Note: NEUROLOGY PROGRESS: Dr. Jules's coverage consultation is greatly appreciated. Pt examined and discussed with KUMAR [place]. Events reviewed and discussed with staff. Close Neighbors at bedside. This RH single man from [facility] with here after vazquez removal and subsequent hematuria. Now with indwelling vazquez, currently being treated with Amoxicillin and Capsofungin for UTI with urinary WBC=73. PMHX: Colon Ca s/p resection, BPH, HTN, HLD, KOREY, GERD, Hernia, Migraine, Dysphagia Review of systems significant for tingling in R hand digits I,II,III x 3 months and dropping things. Neighbors report over 10 years of R sided hip pain and falls, requiring use of cane. He denies headache or trouble swallowing at this time. Head Ct (reviewed): mod atrophy, periventricular ischemic changes H/H 10.4/30.4-> 8.4/24.4 ESR=38 mm/hr; CRP=2.9 mg%; alb 2.0 B12 403 TSH 1.30 fT4 1.30 TISH: Cor Reg. Neg Bruit. Neg SLR. Neg Kehinde's. Neg Tinel's. Early contractures both knees. Nl Neck ROM. Vazquez in situ. NEURO EXAM: Sl dysarthric. Ox [facility]. August 11, 2018. TRUMP-> PMURT. 3/3 recall at 3. Full alvarado appreciated. Reduced rapid tongue. Gag ok. + glabella Motor: No drift. 4-/5 in R and L APB with atrophy. Decreased PEDRO B/L. Trace KJ and AJ's. Prominent rigidity at knees R > L. Toes downgoing. No FTN dystaxia but slowed. Possible reduced pinprick to median distribution B/L. Decreased to vibration and temp to shins B/L Flexed, shuffling, festinating. Retropulsive. Cannot raise to standing position independently. Cannot extend knees. Impression: 1. Mild B/L Cerebral Dysfunction (ESTIM[employer]ING microvascular changes, chronic ) 2. Toxic-Metabolic Encephalopathy (Urosepsis- improving on antibiotics) 3. B/L Carpal Tunnel Syndromes 4. Chronic, ? Progressive, gait dysfunction (likely multifactorial) now complicated by knee contractures suggesting immobilization at home Suggest: Continue antibiotics and hydration Await RPR, Iron Studies Donepezil 5 mg PO q AM PT vs knee contractures and PT for gait with walker. Pt will likely still require SNF level of care. Thank you very much, Alfonso Crawford MD
--- NOTE | 2018-08-11 12:27 | PN ---
Progress Note (short form) - Note Progress Note: awake and alert oob in chair no complaints Vital Signs Period Temp Pulse Resp BP Sys/Scott Pulse Ox Last 24 Hr 97.8 F-98.8 F 54-88 18-20 119-146/53-68 95 cor-rrr lungs clear abd soft,nt ext no edema +vazquez CBC, BMP 08/11/18 06:30 08/11/18 06:30 Microbiology 08/09/18 14:30 Blood - Peripheral Venous Blood Culture - Preliminary NO GROWTH OBTAINED AFTER 24 HOURS, INCUBATION TO CONTINUE FOR 4 DAYS. 08/09/18 13:10 Blood - Peripheral Venous Blood Culture - Preliminary NO GROWTH OBTAINED AFTER 24 HOURS, INCUBATION TO CONTINUE FOR 4 DAYS. 08/06/18 14:30 Blood - Peripheral Venous Blood Culture - Final Yeast Like Organism 08/06/18 00:05 Blood - Peripheral Venous Yeast/Fungus Identification - Preliminary Yeast Like Organism 08/05/18 22:48 Blood - Peripheral Venous Blood Culture - Final Yeast Like Organism 08/06/18 00:05 Blood - Peripheral Venous Blood Culture - Final Yeast Like Organism 08/06/18 13:40 Blood - Peripheral Venous Blood Culture - Final Yeast Like Organism 08/05/18 23:00 Urine - Urine Clean Catch Urine Culture - Final Enterococcus Faecalis hiv negative ct scan reports reviewed a/p fungemia- ?urinary source with vazquez manipulation-but urine culture did not grow yeast! not diabetic, not on steroids continue cancidas repeat blood cultures are negative echo unrevealing optho consult pending r/o endophthalmitis spoke with surgery- have asked them to review ct scans Hematuria urinary retention possible UTI-on amox elevated alkphos possible hsm spoke with renal kidney function now normal will repeat scans with iv contrast Problem List - Problems (1) UTI (urinary tract infection) Code(s): N39.0 - URINARY TRACT INFECTION, SITE NOT SPECIFIED (2) Hematuria Code(s): R31.9 - HEMATURIA, UNSPECIFIED (3) Urinary retention Code(s): R33.9 - RETENTION OF URINE, UNSPECIFIED
[2018-08-11] MEDS ORDERED: PT OWN MED DRAWER 7, Y5N ONE ×2 (13:01→16:22)
[2018-08-11] MEDS: CASPOFUNGIN ACETATE 50 MG in SODIUM CHLORIDE 250 ML IVPB SCH (14:58)
[2018-08-11] MEDS ORDERED: SODIUM CHLORIDE 1,000 ML IV SCH (20:15)
--- NOTE | 2018-08-11 20:54 | CONS ---
DATE OF CONSULTATION: 08/10/2018 REQUESTING PHYSICIAN: Reynaldo Lynch M.D. REASON FOR CONSULTATION: Rule out fungemia. HISTORY OF PRESENT ILLNESS: Patient was admitted to the hospital for rule out yeast infection and rule out UTI. He states he has no current ocular issues and no current ocular problems. He has not had any past ocular history or past ocular surgical history of any significance. He currently does not take any eyedrops and is not currently complaining about his vision. After reviewing the chart completely, the following are initial findings. Visual acuity is 20/50 at near without correction; however, patient does have corrective eyeglasses at home. Intraocular pressure is measured at 15 mmHg in both eyes. External exam is within normal limits. full. He is orthophoric. Cranial nerves 3, 5, 7 full. Visual field by confrontation is full in both eyes. External exam does not show any evidence of any dermatitis, anterior segment reveals the conjunctiva clear, cornea clear, iris and pupil round, reactive, and equal. Lens nuclear cataracts noted. No evidence of haplopia or hyphema. Funduscopic exam reveals sharp and pink optic nerves with a flat, clear macular area, and a flat, clear retina 360 degrees without any vitreus hemorrhages or exudates. ASSESSMENT: 1. The assessment for this patient is for no evidence of current ocular infection of any kind. 2. 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 3. No evidence of significant age-related macular degeneration. 4. No evidence of glaucoma. I would like to thank you for allowing me to participate in the care of this patient. If I can be of further assistance, please feel free to contact me at your convenience. Best regards, SHELLEY TAYLOR M.D. [id number]
[2018-08-11] MEDS: PANTOPRAZOLE 40 MG TABLET (FP) PO SCH (21:33)
[2018-08-11] MEDS: DOCUSATE SODIUM 100 MG CAPSULE (FP) PO SCH (21:33)
[2018-08-11] MEDS: FINASTERIDE 5 MG TABLET (FP) PO SCH (21:33)
[2018-08-11] MEDS: ATORVASTATIN CA 20 MG TABLET (FP) PO SCH (21:33)
[2018-08-12 04:13] LABS: SERUM IRON SATURATION 26 % (15-55); TOTAL IRON BINDING CAPACITY 142 ug/dL (250-450); UIBC 105 ug/dL (111-343)
[2018-08-12] MEDS: AMOXICILLIN 500 MG CAPSULE (FP) PO SCH ×3 (05:15→22:57)
[2018-08-12] MEDS ORDERED: INSULIN (NOVOLOG MIX 70/30) 100 UNITS/ML MDV SQ ONE (06:28)
[2018-08-12 08:05] LABS: BASO % 0.6 % (0-2.0); EOS % 5.5 % (0-4.5); HEMATOCRIT 24.6 % (35.4-49); HEMOGLOBIN 8.4 GM/dL (11.7-16.9); LYMPH % 29.1 % (8-40); MCH 30.5 pg (25.7-33.7); MCHC 34.3 g/dl (32.0-35.9); MEAN CELL VOLUME 88.7 fl (80-96); MEAN PLT VOLUME 8.5 fl (7.5-11.1); MONO % 11.8 % (3.8-10.2); PLATELET COUNT 165 K/MM3 (134-434); RBC 2.77 M/mm3 (4.00-5.60); RDW 13.9 % (11.9-15.9); WHITE BLOOD COUNT 5.9 K/mm3 (4.0-10.0)
[2018-08-12 08:25] LABS: ALBUMIN 2.1 g/dl (3.4-5.0); ALK PHOS 131 U/L (45-117); ANION GAP 3 MMOL/L (8-16); BILIRUBIN,TOTAL 0.4 mg/dL (0.2-1); BLOOD UREA NITROGEN 24 mg/dL (7-18); CALCIUM 7.9 mg/dL (8.5-10.1); CHLORIDE 104 mmol/L (98-107); CO2 30 mmol/L (21-32); GLUCOSE,RANDOM 86 mg/dL (74-106); POTASSIUM 4.5 mmol/L (3.5-5.1); SGOT/AST 15 U/L (15-37); SGPT/ALT 27 U/L (13-61); SODIUM 137 mmol/L (136-145); TOT PROT 5.2 g/dl (6.4-8.2)
[2018-08-12] MEDS: AMINO ACIDS/PROTEIN HYDROLYS 30 ML LIQUID.PKT PO SCH ×2 (11:09→17:33)
[2018-08-12] MEDS: ASCORBIC ACID 500 MG TABLET (FP) PO SCH ×2 (11:16→22:49)
[2018-08-12] MEDS: METOPROLOL TARTRATE 25 MG TABLET (FP) PO SCH ×2 (11:16→22:49)
[2018-08-12] MEDS: TAMSULOSIN HCL 0.4 MG CAP PO SCH (11:17)
[2018-08-12] MEDS: MULTIVITAMINS (DAILY MVI) TABLET (FP) PO SCH (11:17)
--- NOTE | 2018-08-12 14:47 | PN ---
Progress Note (short form) - Note Progress Note: Renal follow up for EDI/CKD Pt seen and examined at the bedside no complaints s/p CT of Abd/Pelvis with contrast today no sob, cp, abd pain, fever, chills Vital Signs Temperature 98.4 F 08/12/18 14:33 Pulse Rate 54 L 08/12/18 14:33 Respiratory Rate 20 08/12/18 14:33 Blood Pressure 98/42 L 08/12/18 14:33 O2 Sat by Pulse Oximetry (%) 93 L 08/11/18 21:00 NAD RRR, no M/R CTA soft NT/ND vazquez in place no LE edema, clubbing or cyanosis CBC, BMP 08/12/18 06:15 08/12/18 06:15 Current Medications Acetaminophen (Tylenol -) 650 mg PO Q6H PRN PRN Reason: FEVER Last Admin: 08/09/18 21:38 Dose: 650 mg Amino Acids (Prosource No Carb Liquid Pkt) 30 ml PO BID@0800,1730 [facility] Last Admin: 08/12/18 11:09 Dose: Not Given Amoxicillin (Amoxicillin -) 500 mg PO TID [facility] Last Admin: 08/12/18 05:15 Dose: 500 mg Ascorbic Acid (Vitamin C -) 500 mg PO BID [facility] Last Admin: 08/12/18 11:16 Dose: 500 mg Atorvastatin Calcium (Lipitor -) 20 mg PO HS [facility] Last Admin: 08/11/18 21:33 Dose: 20 mg Docusate Sodium (Colace -) 200 mg PO [facility] Last Admin: 08/11/18 21:33 Dose: 200 mg Finasteride (Proscar -) 5 mg PO HS [facility] Last Admin: 08/11/18 21:33 Dose: 5 mg Caspofungin 50 mg/ Sodium (Chloride) 250 mls @ 250 mls/hr IVPB Q24H [facility] Last Admin: 08/11/18 14:58 Dose: 250 mls/hr Metoprolol Tartrate (Lopressor -) 12.5 mg PO BID [facility] Last Admin: 08/12/18 11:16 Dose: 12.5 mg Multivitamins/Minerals/Vitamin C (Tab-A-Vit -) 1 tab PO DAILY [facility] Last Admin: 08/12/18 11:17 Dose: 1 tab Pantoprazole Sodium (Protonix -) 40 mg PO [facility] Last Admin: 03/13/19 21:33 Dose: 40 mg Tamsulosin HCl (Flomax -) 0.4 mg PO DAILY@0830 [facility] Last Admin: 08/12/18 11:17 Dose: 0.4 mg 88 year old gentleman with hx of Metastatic colon Ca s/p resection, CAD, HTN, HLD, Aortic Mural Hematoma, BPH who presented with gross hematuria following discontinuation of vazquez catheter with EDI. #EDI/CKD in setting of urinary retention #Cystitis vs. pylonephritis #Hypertension #BPH #Hematuria in setting of urinary tract infection Renal function now improved and stable give IVF for up to 6 hours post contaast Trend renal function and electrolytes Thank you Ronn Leos DO
[2018-08-12] MEDS ORDERED: SODIUM CHLORIDE 1,000 ML IV SCH (15:00)
[2018-08-12] MEDS ORDERED: PT OWN MED DRAWER 7, Y5N ONE (16:19)
[2018-08-12] MEDS: CASPOFUNGIN ACETATE 50 MG in SODIUM CHLORIDE 250 ML IVPB SCH (16:25)
--- NOTE | 2018-08-12 17:26 | CON.CARD ---
Consult Consult Specialty:: Cardiology Referred by:: Dr. Salamanca Reason for Consultation:: Aortic dissection - History of Present Illness Chief Complaint: Aortic dissection History of Present Illness: 88 year-old man, NHR ([facility]), with a PMHx of HTN, HLD, KOREY, GERD, colon cancer, s/p resection, BPH, hernia, migraine, dysphagia admitted 08/06/2018 with hematuria after Guerra removal. He had slight abdominal distension and discomfort. The patient has no respiratory distress. He was comfortable at the time of exam. He reports no chest pain, shortness of breath, palpitation, dizziness. There are no edema, orthopnea or paroxysmal nocturnal dyspnea. Baseline exercise tolerance is poor. CT chest and abdomen 08/12/2018 showed descending aortic dissection with false lumen. No aortic aneurysm. The patient was seen by multiple subspecialties. ECG 08/05/2018 sinus tachycardia. Echo 08/10/2018: Normal LV size, wall motion and systolic function. LVEF = 60-65% . Normal RV. Mild LA dilatation. Calcified aortic and mitral valves. Impaired relaxation. 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 Cardio/Vascular: Yes: AFIB, HTN, Hyperlipdemia Gastrointestinal: Yes: Cancer (Colon), GERD, Other (Hernia) Renal/: Yes: BPH - Alcohol/Substance Use Hx Alcohol Use: No History of Substance Use: reports: None - Smoking History Smoking history: Never smoked Have you smoked in the past 12 months: No Aproximately how many cigarettes per day: 0 - Social History ADL: Support Services History of Recent Travel: No Home Medications - Allergies Allergies/Adverse Reactions: Allergies Allergy/AdvReac Type Severity Reaction Status Date / Time No Known Drug Allergies Allergy Verified 08/05/18 21:40 - Home Medications Home Medications: Ambulatory Orders Tamsulosin HCl 0.4 mg PO HS 09/30/12 Metoprolol Tartrate [Lopressor -] 12.5 mg PO BID 08/02/13 Simvastatin [Zocor] 40 mg PO HS 08/04/13 Cholecalciferol (Vitamin D3) [Vitamin D] 2,000 unit PO DAILY 10/15/15 Docusate Sodium [Colace -] 200 mg PO HS 10/15/15 Finasteride [Proscar -] 5 mg PO HS 10/15/15 Omeprazole [Prilosec] 40 mg PO HS 10/15/15 Aspirin [ASA -] 81 mg PO Q2D 10/24/15 Review of Systems - Review of Systems Constitutional: reports: Loss of Appetite, Weakness Eyes: reports: No Symptoms HENT: reports: No Symptoms Neck: reports: No Symptoms Cardiovascular: reports: No Symptoms Respiratory: reports: No Symptoms Gastrointestinal: reports: No Symptoms Genitourinary: reports: Dysuria, Hematuria, Pain Breasts: reports: No Symptoms Reported Vital Signs: Vital Signs Temperature 98.4 F 08/12/18 14:33 Pulse Rate 54 L 08/12/18 14:33 Respiratory Rate 20 08/12/18 14:33 Blood Pressure 98/42 L 08/12/18 14:33 O2 Sat by Pulse Oximetry (%) 93 L 08/11/18 21:00 General: Well developed. Well nourished. No acute distress. Head: Normocephalic. Atraumatic, Eyes: PERRLA, EOMI. Sclerae anicteric. Conjunctivae clear. Neck: Supple. No JVD. No bruits. Heart: Normal S1, S2: Regular rhythm and rate. No murmur. No gallop or rub. Lungs: Poor respiratory effort. No crackles. No wheezing or rhonchi. Abdomen: Soft. Bowel sound positive. Non tender. No masses. Extremities: No edema. No clubbing or cyanosis. - Other Data Labs, Other Data: CBC, BMP 08/12/18 06:15 08/12/18 06:15 INR, PTT INR 1.13 (0.83-1.09) H 08/05/18 22:45 Assessment/Plan 88 year-old man, NHR ([facility]), with a PMHx of HTN, HLD, KOREY, GERD, colon cancer, s/p resection, BPH, hernia, migraine, dysphagia admitted 08/06/2018 with hematuria after Guerra removal. He had slight abdominal distension and discomfort. CT chest and abdomen 08/12/2018 showed descending aortic dissection with false lumen. No aortic aneurysm. The patient was seen by multiple subspecialties. ECG 08/05/2018 sinus tachycardia. Echo 08/10/2018: Normal LV size, wall motion and systolic function. LVEF = 60-65% . Normal RV. Mild LA dilatation. Calcified aortic and mitral valves. Impaired relaxation. Descending aortic dissection with false lumen. No aortic aneurysm. BP and heart rate control: BP and heart rate are low enough on metoprolol 12.5 mg BID. Vascular surgery evaluation for possible endovascular repair. Continue metoprolol 12.5 mg BID. Close monitor BP and HR. We will follow.
--- NOTE | 2018-08-12 17:45 | PN ---
Progress Note, Physician Chief Complaint: Hematuria Urinary Retention, BPH History of Present Illness: Previous notes and events reviewed awake and alert, confused NAD denies complaints of chest pain, SOB afebrile and no leukocytosis - Current Medication List Current Medications: Active Medications Acetaminophen (Tylenol -) 650 mg PO Q6H PRN PRN Reason: FEVER Last Admin: 08/09/18 21:38 Dose: 650 mg Amino Acids (Prosource No Carb Liquid Pkt) 30 ml PO BID@0800,1730 [facility] Last Admin: 08/12/18 17:33 Dose: Not Given Amoxicillin (Amoxicillin -) 500 mg PO TID [facility] Last Admin: 08/12/18 16:25 Dose: 500 mg Ascorbic Acid (Vitamin C -) 500 mg PO BID [facility] Last Admin: 08/12/18 11:16 Dose: 500 mg Atorvastatin Calcium (Lipitor -) 20 mg PO [facility] Last Admin: 08/11/18 21:33 Dose: 20 mg Docusate Sodium (Colace -) 200 mg PO [facility] Last Admin: 08/11/18 21:33 Dose: 200 mg Finasteride (Proscar -) 5 mg PO [facility] Last Admin: 08/11/18 21:33 Dose: 5 mg Caspofungin 50 mg/ Sodium (Chloride) 250 mls @ 250 mls/hr IVPB Q24H [facility] Last Admin: 08/12/18 16:25 Dose: 250 mls/hr Sodium Chloride (Normal Saline -) 1,000 mls @ 75 mls/hr IV ASDIR [facility] Stop: 08/12/18 20:59 Last Admin: 08/12/18 16:05 Dose: Not Given Metoprolol Tartrate (Lopressor -) 12.5 mg PO BID [facility] Last Admin: 08/12/18 11:16 Dose: 12.5 mg Multivitamins/Minerals/Vitamin C (Tab-A-Vit -) 1 tab PO DAILY [facility] Last Admin: 08/12/18 11:17 Dose: 1 tab Pantoprazole Sodium (Protonix -) 40 mg PO [facility] Last Admin: 08/11/18 21:33 Dose: 40 mg Tamsulosin HCl (Flomax -) 0.4 mg PO DAILY@0830 [facility] Last Admin: 08/12/18 11:17 Dose: 0.4 mg - Objective Vital Signs: Vital Signs Temperature 98.5 F 08/12/18 17:17 Pulse Rate 62 08/12/18 17:17 Respiratory Rate 18 08/12/18 17:17 Blood Pressure 114/50 L 08/12/18 17:17 O2 Sat by Pulse Oximetry (%) 93 L 08/11/18 21:00 Constitutional: Yes: No Distress, Calm Eyes: Yes: Conjunctiva Clear HENT: Yes: Atraumatic Cardiovascular: Yes: Regular Rate and Rhythm Respiratory: Yes: Regular, CTA Bilaterally Gastrointestinal: Yes: Normal Bowel Sounds, Soft Musculoskeletal: Yes: Muscle Weakness Edema: No Neurological: Yes: Alert, Confusion Psychiatric: Yes: Alert Labs: CBC, BMP 08/12/18 06:15 08/12/18 06:15 INR, PTT INR 1.13 (0.83-1.09) H 08/05/18 22:45 Microbiology 08/09/18 14:30 Blood - Peripheral Venous Blood Culture - Preliminary NO GROWTH OBTAINED AFTER 72 HOURS, INCUBATION TO CONTINUE FOR 2 DAYS. 08/09/18 13:10 Blood - Peripheral Venous Blood Culture - Preliminary NO GROWTH OBTAINED AFTER 72 HOURS, INCUBATION TO CONTINUE FOR 2 DAYS. 08/06/18 00:05 Blood - Peripheral Venous Yeast/Fungus Identification - Final Nu Albicans 08/06/18 14:30 Blood - Peripheral Venous Blood Culture - Final Yeast Like Organism 08/05/18 22:48 Blood - Peripheral Venous Blood Culture - Final Yeast Like Organism 08/06/18 00:05 Blood - Peripheral Venous Blood Culture - Final Yeast Like Organism 08/06/18 13:40 Blood - Peripheral Venous Blood Culture - Final Yeast Like Organism 08/05/18 23:00 Urine - Urine Clean Catch Urine Culture - Final Enterococcus Faecalis - ....Imaging Cat Scan: Report Reviewed Problem List - Problems (1) BPH (benign prostatic hyperplasia) Assessment/Plan: -urology consult placed -continue with tamsulosin and proscar Code(s): N40.0 - BENIGN PROSTATIC HYPERPLASIA WITHOUT LOWER URINRY TRACT SYMP (2) HLD (hyperlipidemia) Assessment/Plan: -continue with atorvastatin Code(s): E78.5 - HYPERLIPIDEMIA, UNSPECIFIED (3) HTN (hypertension) Assessment/Plan: -continue with metoprolol Code(s): I10 - ESSENTIAL (PRIMARY) HYPERTENSION (4) UTI (urinary tract infection) Assessment/Plan: -ID on board -UC positive with enterococcus faecalis -UA show 2+ leuk, 3+ blood -continue with amoxicillin -tylenol IVPB PRN for temp >100F -WBC 5.9 Code(s): N39.0 - URINARY TRACT INFECTION, SITE NOT SPECIFIED (5) Urinary retention Assessment/Plan: -[facility] -urology consult pending -continue with tamsulosin and proscar Code(s): R33.9 - RETENTION OF URINE, UNSPECIFIED (6) Poor circulation of extremity Assessment/Plan: -vascular consult Code(s): R09.89 - OTH SYMPTOMS AND SIGNS INVOLVING THE CIRC AND RESP SYSTEMS (7) Altered mental status Assessment/Plan: -confused alert and awake to self -neurology on board -EEG Code(s): R41.82 - ALTERED MENTAL STATUS, UNSPECIFIED (8) EDI (acute kidney injury) Assessment/Plan: -renal on board -BUN/Cr 24/1.0 -renal US show bilateral renal simple cysts Code(s): N17.9 - ACUTE KIDNEY FAILURE, UNSPECIFIED (9) Fungemia Assessment/Plan: -BC postive for yeast like organism -continue with caspofungin acetate Code(s): B49 - UNSPECIFIED MYCOSIS (10) Aortic dissection Assessment/Plan: -CT scan shows aortic dissection starting at the proximal descending thoracic aorta -cardiology consult placed -re-consulted vascular -transfer to [facility] for continuous cardiac monitoring -monitor BP q4h in BOTH arms, if BP is gorssly different in each arm notify MD immediately -continue with metoprolol 12.5mg BID -thoracic surgery consult Code(s): I71.00 - DISSECTION OF UNSPECIFIED SITE OF AORTA Assessment/Plan see problem list dvt ppx
--- NOTE | 2018-08-12 18:50 | PN ---
Progress Note (short form) - Note Progress Note: awake and alert ate dinner feels well no complaints Vital Signs Period Temp Pulse Resp BP Sys/Scott Pulse Ox Last 24 Hr 98.4 F-98.5 F 54-64 18-20 98-141/42-57 93 cor-rrr lungs decreased bs at bases abd soft,nt ext no edema CBC, BMP 08/12/18 06:15 08/12/18 06:[address] scan reports d/w Dr Decker- descending aortic dissection unchanged from Jul no evidence of hepatosplenic candidiasis Microbiology 08/09/18 14:30 Blood - Peripheral Venous Blood Culture - Preliminary NO GROWTH OBTAINED AFTER 72 HOURS, INCUBATION TO CONTINUE FOR 2 DAYS. 08/09/18 13:10 Blood - Peripheral Venous Blood Culture - Preliminary NO GROWTH OBTAINED AFTER 72 HOURS, INCUBATION TO CONTINUE FOR 2 DAYS. 08/06/18 00:05 Blood - Peripheral Venous Yeast/Fungus Identification - Final Nu Albicans 08/06/18 14:30 Blood - Peripheral Venous Blood Culture - Final Yeast Like Organism 08/05/18 22:48 Blood - Peripheral Venous Blood Culture - Final Yeast Like Organism 08/06/18 00:05 Blood - Peripheral Venous Blood Culture - Final Yeast Like Organism 08/06/18 13:40 Blood - Peripheral Venous Blood Culture - Final Yeast Like Organism 08/05/18 23:00 Urine - Urine Clean Catch Urine Culture - Final Enterococcus Faecalis a/p fungemia- ?urinary source with vazquez manipulation-but urine culture did not grow yeast! not diabetic, not on steroids continue cancidas repeat blood cultures are negative echo unrevealing optho consult negative appears to have cleared his fungemia continue cancidas Hematuria urinary retention possible UTI-on amox Problem List - Problems (1) UTI (urinary tract infection) Code(s): N39.0 - URINARY TRACT INFECTION, SITE NOT SPECIFIED (2) Hematuria Code(s): R31.9 - HEMATURIA, UNSPECIFIED (3) Urinary retention Code(s): R33.9 - RETENTION OF URINE, UNSPECIFIED
[2018-08-12] MEDS: ATORVASTATIN CA 20 MG TABLET (FP) PO SCH (22:49)
[2018-08-12] MEDS: DOCUSATE SODIUM 100 MG CAPSULE (FP) PO SCH (22:49)
[2018-08-12] MEDS: POLYETHYLENE GLYCOL 3350 119 GM BTL PO SCH (22:50)
[2018-08-12] MEDS: PANTOPRAZOLE 40 MG TABLET (FP) PO SCH (22:50)
[2018-08-12] MEDS: FINASTERIDE 5 MG TABLET (FP) PO SCH (22:50)
[2018-08-13] MEDS: AMOXICILLIN 500 MG CAPSULE (FP) PO SCH ×3 (05:52→21:18)
[2018-08-13 06:31] LABS: BASO % 0.7 % (0-2.0); EOS % 5.5 % (0-4.5); HEMATOCRIT 24.2 % (35.4-49); HEMOGLOBIN 8.3 GM/dL (11.7-16.9); LYMPH % 29.1 % (8-40); MCH 30.5 pg (25.7-33.7); MCHC 34.3 g/dl (32.0-35.9); MEAN PLT VOLUME 8.4 fl (7.5-11.1); MONO % 10.4 % (3.8-10.2); NEUT % 54.3 % (42.8-82.8); PLATELET COUNT 175 K/MM3 (134-434); RBC 2.72 M/mm3 (4.00-5.60); RDW 14.1 % (11.9-15.9); WHITE BLOOD COUNT 6.1 K/mm3 (4.0-10.0)
[2018-08-13 07:01] LABS: ALBUMIN 2.1 g/dl (3.4-5.0); ALK PHOS 124 U/L (45-117); ANION GAP 4 MMOL/L (8-16); BILIRUBIN,TOTAL 0.3 mg/dL (0.2-1); BLOOD UREA NITROGEN 21 mg/dL (7-18); CALCIUM 7.6 mg/dL (8.5-10.1); CHLORIDE 103 mmol/L (98-107); CO2 31 mmol/L (21-32); CREATININE 1.1 mg/dL (0.55-1.3); GLUCOSE,RANDOM 84 mg/dL (74-106); POTASSIUM 4.3 mmol/L (3.5-5.1); SGOT/AST 15 U/L (15-37); SGPT/ALT 22 U/L (13-61); SODIUM 138 mmol/L (136-145); TOT PROT 5.2 g/dl (6.4-8.2)
[2018-08-13] MEDS ORDERED: PT OWN MED DRAWER 7, Y5N ONE ×5 (08:48→21:11)
[2018-08-13] MEDS: AMINO ACIDS/PROTEIN HYDROLYS 30 ML LIQUID.PKT PO SCH ×2 (08:57→17:37)
[2018-08-13] MEDS: TAMSULOSIN HCL 0.4 MG CAP PO SCH (08:58)
[2018-08-13] MEDS: POLYETHYLENE GLYCOL 3350 119 GM BTL PO SCH (09:11)
[2018-08-13] MEDS: ASCORBIC ACID 500 MG TABLET (FP) PO SCH ×2 (09:11→21:18)
[2018-08-13] MEDS: MULTIVITAMINS (DAILY MVI) TABLET (FP) PO SCH (09:11)
[2018-08-13] MEDS: METOPROLOL TARTRATE 25 MG TABLET (FP) PO SCH ×2 (09:11→21:18)
--- NOTE | 2018-08-13 12:15 | PN ---
Progress Note (short form) - Note Progress Note: Renal follow up for EDI/CKD Pt seen and examined at the bedside no complaints Vital Signs Temperature 98.7 F 08/13/18 10:00 Pulse Rate 71 08/13/18 10:00 Respiratory Rate 20 08/13/18 10:00 Blood Pressure 153/65 08/13/18 10:00 O2 Sat by Pulse Oximetry (%) 95 08/12/18 21:00 NAD RRR, no M/R CTA soft NT/ND vazquez in place no LE edema, clubbing or cyanosis CBC, BMP 08/13/18 05:30 08/13/18 05:30 Current Medications Acetaminophen (Tylenol -) 650 mg PO Q6H PRN PRN Reason: FEVER Last Admin: 08/09/18 21:38 Dose: 650 mg Amino Acids (Prosource No Carb Liquid Pkt) 30 ml PO BID@0800,1730 [facility] Last Admin: 08/13/18 08:57 Dose: Not Given Amoxicillin (Amoxicillin -) 500 mg PO TID [facility] Last Admin: 08/13/18 05:52 Dose: 500 mg Ascorbic Acid (Vitamin C -) 500 mg PO BID [facility] Last Admin: 08/13/18 09:11 Dose: 500 mg Atorvastatin Calcium (Lipitor -) 20 mg PO HS [facility] Last Admin: 08/12/18 22:49 Dose: 20 mg Docusate Sodium (Colace -) 200 mg PO [facility] Last Admin: 08/12/18 22:49 Dose: 200 mg Finasteride (Proscar -) 5 mg PO HS [facility] Last Admin: 08/12/18 22:50 Dose: 5 mg Caspofungin 50 mg/ Sodium (Chloride) 250 mls @ 250 mls/hr IVPB Q24H [facility] Last Admin: 08/12/18 16:25 Dose: 250 mls/hr Metoprolol Tartrate (Lopressor -) 12.5 mg PO BID [facility] Last Admin: 08/13/18 09:11 Dose: 12.5 mg Multivitamins/Minerals/Vitamin C (Tab-A-Vit -) 1 tab PO DAILY [facility] Last Admin: 08/13/18 09:11 Dose: 1 tab Pantoprazole Sodium (Protonix -) 40 mg PO HS [facility] Last Admin: 08/12/18 22:50 Dose: 40 mg Polyethylene Glycol (Miralax (For Daily Use) -) 17 gm PO DAILY [facility] Last Admin: 08/13/18 09:11 Dose: 17 gm Tamsulosin HCl (Flomax -) 0.4 mg PO DAILY@0830 [facility] Last Admin: 08/13/18 08:58 Dose: 0.4 mg 88 year old gentleman with hx of Metastatic colon Ca s/p resection, CAD, HTN, HLD, Aortic Mural Hematoma, BPH who presented with gross hematuria following discontinuation of vazquez catheter with EDI. #EDI/CKD in setting of urinary retention #Cystitis vs. pylonephritis #Hypertension #BPH #Hematuria in setting of urinary tract infection Renal function stable off IVF would trend BUN/Cr for additional 24 hours to monitor for Contrast nephropathy Thank you Ronn Leos DO
--- NOTE | 2018-08-13 12:58 | PN ---
Progress Note, Physician Chief Complaint: patient seen and examined - Current Medication List Current Medications: Active Medications Acetaminophen (Tylenol -) 650 mg PO Q6H PRN PRN Reason: FEVER Last Admin: 08/09/18 21:38 Dose: 650 mg Amino Acids (Prosource No Carb Liquid Pkt) 30 ml PO BID@0800,1730 [facility] Last Admin: 08/13/18 08:57 Dose: Not Given Amoxicillin (Amoxicillin -) 500 mg PO TID [facility] Last Admin: 08/13/18 05:52 Dose: 500 mg Ascorbic Acid (Vitamin C -) 500 mg PO BID [facility] Last Admin: 08/13/18 09:11 Dose: 500 mg Atorvastatin Calcium (Lipitor -) 20 mg PO [facility] Last Admin: 08/12/18 22:49 Dose: 20 mg Docusate Sodium (Colace -) 200 mg PO [facility] Last Admin: 08/12/18 22:49 Dose: 200 mg Finasteride (Proscar -) 5 mg PO [facility] Last Admin: 08/12/18 22:50 Dose: 5 mg Caspofungin 50 mg/ Sodium (Chloride) 250 mls @ 250 mls/hr IVPB Q24H [facility] Last Admin: 08/12/18 16:25 Dose: 250 mls/hr Metoprolol Tartrate (Lopressor -) 12.5 mg PO BID [facility] Last Admin: 08/13/18 09:11 Dose: 12.5 mg Multivitamins/Minerals/Vitamin C (Tab-A-Vit -) 1 tab PO DAILY [facility] Last Admin: 08/13/18 09:11 Dose: 1 tab Pantoprazole Sodium (Protonix -) 40 mg PO [facility] Last Admin: 08/12/18 22:50 Dose: 40 mg Polyethylene Glycol (Miralax (For Daily Use) -) 17 gm PO DAILY [facility] Last Admin: 08/13/18 09:11 Dose: 17 gm Tamsulosin HCl (Flomax -) 0.4 mg PO DAILY@0830 [facility] Last Admin: 08/13/18 08:58 Dose: 0.4 mg - Objective Vital Signs: Vital Signs Temperature 98.7 F 08/13/18 10:00 Pulse Rate 71 08/13/18 10:00 Respiratory Rate 20 08/13/18 10:00 Blood Pressure 153/65 08/13/18 10:00 O2 Sat by Pulse Oximetry (%) 92 L 08/13/18 09:00 Constitutional: Yes: Calm, Thin Cardiovascular: Yes: Regular Rate and Rhythm, S1, S2 Respiratory: Yes: CTA Bilaterally, Diminished (at bases) Genitourinary: Yes: Vazquez Present Edema: No Labs: CBC, BMP 08/13/18 05:30 08/13/18 05:30 INR, PTT INR 1.13 (0.83-1.09) H 08/05/18 22:45 Problem List - Problems (1) Anemia Assessment/Plan: iron panel Code(s): D64.9 - ANEMIA, UNSPECIFIED (2) BPH (benign prostatic hyperplasia) Assessment/Plan: flomax Code(s): N40.0 - BENIGN PROSTATIC HYPERPLASIA WITHOUT LOWER URINRY TRACT SYMP (3) Fungemia Assessment/Plan: repeat blood cultures negative optho on board continue caspafungin Code(s): B49 - UNSPECIFIED MYCOSIS (4) HLD (hyperlipidemia) Assessment/Plan: statin Code(s): E78.5 - HYPERLIPIDEMIA, UNSPECIFIED (5) HTN (hypertension) Assessment/Plan: metorprolol Code(s): I10 - ESSENTIAL (PRIMARY) HYPERTENSION (6) UTI (urinary tract infection) Assessment/Plan: Microbiology 08/05/18 23:00 Urine - Urine Clean Catch Urine Culture - Final Enterococcus Faecalis on amoxicllin Code(s): N39.0 - URINARY TRACT INFECTION, SITE NOT SPECIFIED (7) Urinary retention Assessment/Plan: vazquez cath flomax Code(s): R33.9 - RETENTION OF URINE, UNSPECIFIED
--- NOTE | 2018-08-13 14:44 | PN ---
Progress Note, Physician Chief Complaint: The patient appears comfortable at the time of exam. he reports no chest pain, shortness, palpitation or dizziness. Telemetry reveiwed, it showed sinus rhythm with short runs of atrial tachycardia. History of Present Illness: 88 year-old man, N[facility] ([facility]), with a PMHx of HTN, HLD, KOREY, GERD, colon cancer, s/p resection, BPH, hernia, migraine, dysphagia admitted 08/06/2018 with hematuria after Guerra removal. He had slight abdominal distension and discomfort. The patient has no respiratory distress. He was comfortable at the time of exam. He reports no chest pain, shortness of breath, palpitation, dizziness. There are no edema, orthopnea or paroxysmal nocturnal dyspnea. Baseline exercise tolerance is poor. CT chest and abdomen 08/12/2018 showed descending aortic dissection with false lumen. No aortic aneurysm. The patient was seen by multiple subspecialties. ECG 08/05/2018 sinus tachycardia. Echo 08/10/2018: Normal LV size, wall motion and systolic function. LVEF = 60-65% . Normal RV. Mild LA dilatation. Calcified aortic and mitral valves. Impaired relaxation. - Current Medication List Current Medications: Active Medications Acetaminophen (Tylenol -) 650 mg PO Q6H PRN PRN Reason: FEVER Last Admin: 08/09/18 21:38 Dose: 650 mg Amino Acids (Prosource No Carb Liquid Pkt) 30 ml PO BID@0800,1730 [facility] Last Admin: 08/13/18 08:57 Dose: Not Given Amoxicillin (Amoxicillin -) 500 mg PO TID [facility] Last Admin: 08/13/18 05:52 Dose: 500 mg Ascorbic Acid (Vitamin C -) 500 mg PO BID [facility] Last Admin: 08/13/18 09:11 Dose: 500 mg Atorvastatin Calcium (Lipitor -) 20 mg PO HS [facility] Last Admin: 08/12/18 22:49 Dose: 20 mg Docusate Sodium (Colace -) 200 mg PO [facility] Last Admin: 08/12/18 22:49 Dose: 200 mg Finasteride (Proscar -) 5 mg PO [facility] Last Admin: 08/12/18 22:50 Dose: 5 mg Caspofungin 50 mg/ Sodium (Chloride) 250 mls @ 250 mls/hr IVPB Q24H [facility] Last Admin: 08/12/18 16:25 Dose: 250 mls/hr Metoprolol Tartrate (Lopressor -) 12.5 mg PO BID [facility] Last Admin: 08/13/18 09:11 Dose: 12.5 mg Multivitamins/Minerals/Vitamin C (Tab-A-Vit -) 1 tab PO DAILY [facility] Last Admin: 08/13/18 09:11 Dose: 1 tab Pantoprazole Sodium (Protonix -) 40 mg PO HS [facility] Last Admin: 08/12/18 22:50 Dose: 40 mg Polyethylene Glycol (Miralax (For Daily Use) -) 17 gm PO DAILY [facility] Last Admin: 08/13/18 09:11 Dose: 17 gm Tamsulosin HCl (Flomax -) 0.4 mg PO DAILY@0830 [facility] Last Admin: 08/13/18 08:58 Dose: 0.4 mg - Objective Vital Signs: Vital Signs Temperature 98.7 F 08/13/18 10:00 Pulse Rate 71 08/13/18 10:00 Respiratory Rate 20 08/13/18 10:00 Blood Pressure 153/65 08/13/18 10:00 O2 Sat by Pulse Oximetry (%) 92 L 08/13/18 09:00 General: Well developed. Well nourished. No acute distress. Head: Normocephalic. Atraumatic, Eyes: PERRLA, EOMI. Sclerae anicteric. Conjunctivae clear. Neck: Supple. No JVD. No bruits. Heart: Normal S1, S2: Regular rhythm and rate. No murmur. No gallop or rub. Lungs: Poor respiratory effort. No crackles. No wheezing or rhonchi. Abdomen: Soft. Bowel sound positive. Non tender. No masses. Extremities: No edema. No clubbing or cyanosis. Labs: CBC, BMP 08/13/18 05:30 08/13/18 05:30 INR, PTT INR 1.13 (0.83-1.09) H 08/05/18 22:45 Assessment/Plan 88 year-old man, N[facility] ([facility]), with a PMHx of HTN, HLD, KOREY, GERD, colon cancer, s/p resection, BPH, hernia, migraine, dysphagia admitted 08/06/2018 with hematuria after Guerra removal. He had slight abdominal distension and discomfort. CT chest and abdomen 08/12/2018 showed descending aortic dissection with false lumen. No aortic aneurysm. The patient was seen by multiple subspecialties. ECG 08/05/2018 sinus tachycardia. Echo 08/10/2018: Normal LV size, wall motion and systolic function. LVEF = 60-65% . Normal RV. Mild LA dilatation. Calcified aortic and mitral valves. Impaired relaxation. Descending aortic dissection with false lumen. No aortic aneurysm. 1) Increase metoprolol to 25 mg BID for better heart rate and BP control. 2) Vascular surgery evaluation for possible endovascular repair. No direct cardiac contraindication to possible endovascular repair for descending aortic dissection. 3) Close monitor BP and HR. We will follow.
[2018-08-13] MEDS: CASPOFUNGIN ACETATE 50 MG in SODIUM CHLORIDE 250 ML IVPB SCH (15:21)
--- NOTE | 2018-08-13 18:07 | PN ---
Progress Note (short form) - Note Progress Note: NEUROLOGY PROGRESS: Events reviewed and discussed with staff and [facility] [place]. Continues on Amoxicillin and Capsofungin for UTI CT of C/A noted with descending thoracic aortic dissection with false lumen. Now on telemetry. 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 Difficult to test right leg due to R. Hip pain. NEURO EXAM: Sl dysarthric. Does not remember me. Ox [facility]. July corrected to July. TRUMP. Poor reversals. 06/03 recall at 3. Reduced rapid tongue. Gag ok. + glabella, snout, grasps Motor: Prominent rigidity at knees R > L. Decreased to vibration and temp to shins B/L Impression: 1. Mild B/L Cerebral Dysfunction (FILTER PRESS TENDER microvascular changes, chronic -OMS studies neg or normal) 2. Toxic-Metabolic Encephalopathy (Urosepsis- improving on antibiotics) 3. B/L Carpal Tunnel Syndromes 4. Chronic gait dysfunction with significant contributions from FILTER PRESS T[employer]ER microvascular disease, R hip arthropathy and knee contractures. Suggest: Continue antibiotics and hydration Add FeSO4 325 daily for iron supplementation Add Donepezil 5 mg PO q AM Agree with cardio and telemetry, Vascular consult to consider endovascular repair of aortic dissection Continue PT for contractures and OOB to chair as tolerated Pt will likely still require SNF level of care. Thank you very much, Alfonso Crawford MD
--- NOTE | 2018-08-13 20:43 | PN ---
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 08/09/18 13:10 Blood - Peripheral Venous Blood Culture - Preliminary NO GROWTH OBTAINED AFTER 96 HOURS, INCUBATION TO CONTINUE FOR 1 DAYS. 08/12/18 06:15 Blood - Peripheral Venous Blood Culture - Preliminary NO GROWTH OBTAINED AFTER 24 HOURS, INCUBATION TO CONTINUE FOR 4 DAYS. 08/12/18 06:15 Blood - Peripheral Venous Blood Culture - Preliminary NO GROWTH OBTAINED AFTER 24 HOURS, INCUBATION TO CONTINUE FOR 4 DAYS. 08/06/18 00:05 Blood - Peripheral Venous Yeast/Fungus Identification - Final Nu Albicans 08/06/18 14:30 Blood - Peripheral Venous Blood Culture - Final Yeast Like Organism 08/05/18 22:48 Blood - Peripheral Venous Blood Culture - Final Yeast Like Organism 08/06/18 00:05 Blood - Peripheral Venous Blood Culture - Final Yeast Like Organism 08/06/18 13:40 Blood - Peripheral Venous Blood Culture - Final Yeast Like Organism 08/05/18 23:00 Urine - Urine Clean Catch Urine Culture - Final Enterococcus Faecalis a/p fungemia- ?urinary source with vazquez manipulation-but urine culture did not grow yeast! not diabetic, not on steroids continue cancidas repeat blood cultures are negative echo unrevealing optho consult negative appears to have cleared his fungemia day #7 cancidas cndida albicans will switch to diflucan Problem List - Problems (1) UTI (urinary tract infection) Code(s): N39.0 - URINARY TRACT INFECTION, SITE NOT SPECIFIED (2) Hematuria Code(s): R31.9 - HEMATURIA, UNSPECIFIED (3) Urinary retention Code(s): R33.9 - RETENTION OF URINE, UNSPECIFIED
[2018-08-13] MEDS: FINASTERIDE 5 MG TABLET (FP) PO SCH (21:18)
[2018-08-13] MEDS: ATORVASTATIN CA 20 MG TABLET (FP) PO SCH (21:18)
[2018-08-13] MEDS: PANTOPRAZOLE 40 MG TABLET (FP) PO SCH (21:18)
[2018-08-13] MEDS: DOCUSATE SODIUM 100 MG CAPSULE (FP) PO SCH (21:19)
[2018-08-13] MEDS ORDERED: BISACODYL 5 MG TABLET.DR (FP) PO ONE (21:36)
[2018-08-14] MEDS ORDERED: PT OWN MED DRAWER 7, Y5N ONE ×2 (05:08→19:31)
[2018-08-14] MEDS: AMOXICILLIN 500 MG CAPSULE (FP) PO SCH ×3 (05:12→21:10)
[2018-08-14 08:41] LABS: BASO % 0.8 % (0-2.0); EOS % 6.9 % (0-4.5); HEMOGLOBIN 8.5 GM/dL (11.7-16.9); LYMPH % 26.5 % (8-40); MCH 30.5 pg (25.7-33.7); MEAN CELL VOLUME 89.7 fl (80-96); MONO % 11.1 % (3.8-10.2); NEUT % 54.7 % (42.8-82.8); PLATELET COUNT 191 K/MM3 (134-434); RBC 2.79 M/mm3 (4.00-5.60); RDW 13.9 % (11.9-15.9); WHITE BLOOD COUNT 5.7 K/mm3 (4.0-10.0)
[2018-08-14] MEDS: AMINO ACIDS/PROTEIN HYDROLYS 30 ML LIQUID.PKT PO SCH ×2 (08:49→17:31)
[2018-08-14] MEDS: TAMSULOSIN HCL 0.4 MG CAP PO SCH (08:49)
[2018-08-14 09:13] LABS: ALBUMIN 2.2 g/dl (3.4-5.0); ALK PHOS 111 U/L (45-117); ANION GAP 3 MMOL/L (8-16); BILIRUBIN,TOTAL 0.3 mg/dL (0.2-1); BLOOD UREA NITROGEN 24 mg/dL (7-18); CHLORIDE 102 mmol/L (98-107); CO2 32 mmol/L (21-32); CREATININE 1.1 mg/dL (0.55-1.3); GLUCOSE,RANDOM 92 mg/dL (74-106); POTASSIUM 4.7 mmol/L (3.5-5.1); SGOT/AST 15 U/L (15-37); SGPT/ALT 25 U/L (13-61); SODIUM 137 mmol/L (136-145); TOT PROT 5.2 g/dl (6.4-8.2)
[2018-08-14] MEDS: POLYETHYLENE GLYCOL 3350 119 GM BTL PO SCH (10:02)
[2018-08-14] MEDS: METOPROLOL TARTRATE 25 MG TABLET (FP) PO SCH ×2 (10:02→21:10)
[2018-08-14] MEDS: MULTIVITAMINS (DAILY MVI) TABLET (FP) PO SCH (10:02)
[2018-08-14] MEDS: ASCORBIC ACID 500 MG TABLET (FP) PO SCH ×2 (10:02→21:10)
--- NOTE | 2018-08-14 10:15 | PN ---
Progress Note (short form) - Note Progress Note: no complaints Vital Signs Period Temp Pulse Resp BP Sys/Scott Pulse Ox Last 24 Hr 97.5 F-98.7 F 60-74 18-20 105-144/41-74 94 cor-rrr llngs clear abd soft,nt ext no edema vazquez draining clear urine CBC, BMP 08/14/18 08:15 08/14/18 08:[address] scan reports d/w Dr Decker- descending aortic dissection unchanged from Jul no evidence of hepatosplenic candidiasis Microbiology 08/12/18 06:15 Blood - Peripheral Venous Blood Culture - Preliminary NO GROWTH OBTAINED AFTER 48 HOURS, INCUBATION TO CONTINUE FOR 3 DAYS. 08/12/18 06:15 Blood - Peripheral Venous Blood Culture - Preliminary NO GROWTH OBTAINED AFTER 48 HOURS, INCUBATION TO CONTINUE FOR 3 DAYS. 08/09/18 14:30 Blood - Peripheral Venous Blood Culture - Preliminary NO GROWTH OBTAINED AFTER 96 HOURS, INCUBATION TO CONTINUE FOR 1 DAYS. 08/09/18 13:10 Blood - Peripheral Venous Blood Culture - Preliminary NO GROWTH OBTAINED AFTER 96 HOURS, INCUBATION TO CONTINUE FOR 1 DAYS. 08/06/18 00:05 Blood - Peripheral Venous Yeast/Fungus Identification - Final Nu Albicans 08/06/18 14:30 Blood - Peripheral Venous Blood Culture - Final Yeast Like Organism 08/05/18 22:48 Blood - Peripheral Venous Blood Culture - Final Yeast Like Organism 08/06/18 00:05 Blood - Peripheral Venous Blood Culture - Final Yeast Like Organism 08/06/18 13:40 Blood - Peripheral Venous Blood Culture - Final Yeast Like Organism 08/05/18 23:00 Urine - Urine Clean Catch Urine Culture - Final Enterococcus Faecalis Current Medications Acetaminophen (Tylenol -) 650 mg PO Q6H PRN PRN Reason: FEVER Last Admin: 08/09/18 21:38 Dose: 650 mg Amino Acids (Prosource No Carb Liquid Pkt) 30 ml PO BID@0800,1730 [facility] Last Admin: 08/14/18 08:49 Dose: 30 ml Amoxicillin (Amoxicillin -) 500 mg PO TID [facility] Last Admin: 08/14/18 05:12 Dose: 500 mg Ascorbic Acid (Vitamin C -) 500 mg PO BID [facility] Last Admin: 08/14/18 10:02 Dose: 500 mg Atorvastatin Calcium (Lipitor -) 20 mg PO HS [facility] Last Admin: 08/13/18 21:18 Dose: 20 mg Docusate Sodium (Colace -) 200 mg PO [facility] Last Admin: 08/13/18 21:19 Dose: 200 mg Finasteride (Proscar -) 5 mg PO [facility] Last Admin: 08/13/18 21:18 Dose: 5 mg Fluconazole (Diflucan 400 Mg/Ns Premixed Ivpb -) 200 mls @ 200 mls/hr IVPB DAILY [facility] Metoprolol Tartrate (Lopressor -) 25 mg PO BID [facility] Last Admin: 08/14/18 10:02 Dose: 25 mg Multivitamins/Minerals/Vitamin C (Tab-A-Vit -) 1 tab PO DAILY [facility] Last Admin: 08/14/18 10:02 Dose: 1 tab Pantoprazole Sodium (Protonix -) 40 mg PO [facility] Last Admin: 08/13/18 21:18 Dose: 40 mg Polyethylene Glycol (Miralax (For Daily Use) -) 17 gm PO DAILY [facility] Last Admin: 08/14/18 10:02 Dose: 17 gm Tamsulosin HCl (Flomax -) 0.4 mg PO DAILY@0830 [facility] Last Admin: 08/14/18 08:49 Dose: 0.4 mg a/p fungemia- ?urinary source with vazquez manipulation-but urine culture did not grow yeast! not diabetic, not on steroids has completed one week of cancidas switch to diflucan would treat 2 weeks, can switch to po when ready for discharge-400 mg daily would get blood cultures off diflucan after he completes his treatment alk phos now normal repeat blood cultures are negative echo unrevealing optho consult negative would hold aricept until he completes the diflucan (drug interaction) would avoid placing any prosthetic devices at this time if possible and procedure not urgent due to his fungemia d/w covering hospitalist Problem List - Problems (1) UTI (urinary tract infection) Code(s): N39.0 - URINARY TRACT INFECTION, SITE NOT SPECIFIED (2) Hematuria Code(s): R31.9 - HEMATURIA, UNSPECIFIED (3) Urinary retention Code(s): R33.9 - RETENTION OF URINE, UNSPECIFIED
[2018-08-14 11:18] LABS: CHOLESTEROL 120 mg/dL (50-200); HDL CHOLESTEROL 28 mg/dL (40-60); TRIGLYCERIDES 98 mg/dL (0-150)
[2018-08-14] MEDS: FLUCONAZOLE 400 MG/NS 200 ML IVPB SCH (11:27)
--- NOTE | 2018-08-14 12:40 | PN ---
Progress Note (short form) - Note Progress Note: Afebrile No complaints CT Chest and abdomen reviewed - Type B aortic dissection with false lumen supplying lumbar branches of thoracic aorta. No major vessel involvement. The size of the false lumen appears to have increased when compared to the previous scan done in July. Based on this change I would advise repair of the dissection with a stent graft when he is medically stable. I would wait at least 2 weeks on anti-fungal medication before proceeding to reduce the risk of graft infection. I will arrange for procedure at [facility] at the end of the month.
--- NOTE | 2018-08-14 13:35 | PN ---
Progress Note, Physician Chief Complaint: The patient appears comfortable at the time of exam. He reports no chest pain, shortness, palpitation or dizziness. Telemetry reveiwed, it showed sinus rhythm with mild bradycardia and VPCs. No recurrent atrial tachycardia. History of Present Illness: 88 year-old man, NHR ([facility]), with a PMHx of HTN, HLD, KOREY, GERD, colon cancer, s/p resection, BPH, hernia, migraine, dysphagia admitted 08/06/2018 with hematuria after Guerra removal. He had slight abdominal distension and discomfort. CT chest and abdomen 08/12/2018 showed descending aortic dissection with false lumen. No aortic aneurysm. The patient was seen by multiple subspecialties. Seen by Dr. Palencia for descending aortic dissection with false lumen. Endovascular stenting planned after 2 weeks of antifungal therapy. ECG 08/05/2018 sinus tachycardia. Echo 08/10/2018: Normal LV size, wall motion and systolic function. LVEF = 60-65% . Normal RV. Mild LA dilatation. Calcified aortic and mitral valves. Impaired relaxation. - Current Medication List Current Medications: Active Medications Acetaminophen (Tylenol -) 650 mg PO Q6H PRN PRN Reason: FEVER Last Admin: 08/09/18 21:38 Dose: 650 mg Amino Acids (Prosource No Carb Liquid Pkt) 30 ml PO BID@0800,1730 [facility] Last Admin: 08/14/18 08:49 Dose: 30 ml Amoxicillin (Amoxicillin -) 500 mg PO TID [facility] Last Admin: 08/14/18 05:12 Dose: 500 mg Ascorbic Acid (Vitamin C -) 500 mg PO BID [facility] Last Admin: 08/14/18 10:02 Dose: 500 mg Atorvastatin Calcium (Lipitor -) 20 mg PO HS [facility] Last Admin: 08/13/18 21:18 Dose: 20 mg Docusate Sodium (Colace -) 200 mg PO HS [facility] Last Admin: 08/13/18 21:19 Dose: 200 mg Finasteride (Proscar -) 5 mg PO HS [facility] Last Admin: 08/13/18 21:18 Dose: 5 mg Fluconazole (Diflucan 400 Mg/Ns Premixed Ivpb -) 200 mls @ 200 mls/hr IVPB DAILY [facility] Last Admin: 08/14/18 11:27 Dose: 200 mls/hr Metoprolol Tartrate (Lopressor -) 25 mg PO BID [facility] Last Admin: 08/14/18 10:02 Dose: 25 mg Multivitamins/Minerals/Vitamin C (Tab-A-Vit -) 1 tab PO DAILY [facility] Last Admin: 08/14/18 10:02 Dose: 1 tab Pantoprazole Sodium (Protonix -) 40 mg PO HS [facility] Last Admin: 08/13/18 21:18 Dose: 40 mg Polyethylene Glycol (Miralax (For Daily Use) -) 17 gm PO DAILY [facility] Last Admin: 08/14/18 10:02 Dose: 17 gm Tamsulosin HCl (Flomax -) 0.4 mg PO DAILY@0830 [facility] Last Admin: 08/14/18 08:49 Dose: 0.4 mg - Objective Vital Signs: Vital Signs Temperature 98.8 F 08/14/18 13:21 Pulse Rate 62 08/14/18 13:21 Respiratory Rate 18 08/14/18 13:21 Blood Pressure 127/55 L 08/14/18 13:21 O2 Sat by Pulse Oximetry (%) 94 L 08/13/18 20:01 General: Well developed. Well nourished. No acute distress. Head: Normocephalic. Atraumatic, Eyes: PERRLA, EOMI. Sclerae anicteric. Conjunctivae clear. Neck: Supple. No JVD. No bruits. Heart: Normal S1, S2: Regular rhythm and rate. No murmur. No gallop or rub. Lungs: Poor respiratory effort. No crackles. No wheezing or rhonchi. Abdomen: Soft. Bowel sound positive. Non tender. No masses. Extremities: No edema. No clubbing or cyanosis. Labs: CBC, BMP 08/14/18 08:15 08/14/18 08:15 INR, PTT INR 1.13 (0.83-1.09) H 08/05/18 22:45 Assessment/Plan 88 year-[facility] with a PMHx of HTN, HLD, KOREY, GERD, colon cancer, s/p resection, BPH, hernia, migraine, dysphagia admitted 08/06/2018 with hematuria after Guerra removal. He had slight abdominal distension and discomfort. Seen by Dr. Palencia for descending aortic dissection with false lumen. Endovascular stenting planned after 2 weeks of antifungal therapy. CT chest and abdomen 08/12/2018 showed descending aortic dissection with false lumen. No aortic aneurysm. The patient was seen by multiple subspecialties. ECG 08/05/2018 sinus tachycardia. Echo 08/10/2018: Normal LV size, wall motion and systolic function. LVEF = 60-65% . Normal RV. Mild LA dilatation. Calcified aortic and mitral valves. Impaired relaxation. Descending aortic dissection with false lumen. No aortic aneurysm. 1) No direct cardiac contraindication to the planned endovascular repair with endovascular stenting for descending aortic dissection. 2) BP and heart rate control: BP and HR are well controlled with metoprolol 25 mg BID. 3) May discontinue tele. Please call us for reconsult as needed.
--- NOTE | 2018-08-14 14:04 | PN ---
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 pylonephritis Hematuria in setting of urinary tract infection Current Medications Acetaminophen (Tylenol -) 650 mg PO Q6H PRN PRN Reason: FEVER Last Admin: 08/09/18 21:38 Dose: 650 mg Amino Acids (Prosource No Carb Liquid Pkt) 30 ml PO BID@0800,1730 [facility] Last Admin: 08/14/18 08:49 Dose: 30 ml Amoxicillin (Amoxicillin -) 500 mg PO TID [facility] Last Admin: 08/14/18 13:49 Dose: 500 mg Ascorbic Acid (Vitamin C -) 500 mg PO BID [facility] Last Admin: 08/14/18 10:02 Dose: 500 mg Atorvastatin Calcium (Lipitor -) 20 mg PO HS [facility] Last Admin: 08/13/18 21:18 Dose: 20 mg Docusate Sodium (Colace -) 200 mg PO HS [facility] Last Admin: 08/13/18 21:19 Dose: 200 mg Finasteride (Proscar -) 5 mg PO HS [facility] Last Admin: 08/13/18 21:18 Dose: 5 mg Fluconazole (Diflucan 400 Mg/Ns Premixed Ivpb -) 200 mls @ 200 mls/hr IVPB DAILY [facility] Last Admin: 08/14/18 11:27 Dose: 200 mls/hr Metoprolol Tartrate (Lopressor -) 25 mg PO BID [facility] Last Admin: 08/14/18 10:02 Dose: 25 mg Multivitamins/Minerals/Vitamin C (Tab-A-Vit -) 1 tab PO DAILY [facility] Last Admin: 08/14/18 10:02 Dose: 1 tab Pantoprazole Sodium (Protonix -) 40 mg PO HS [facility] Last Admin: 08/13/18 21:18 Dose: 40 mg Polyethylene Glycol (Miralax (For Daily Use) -) 17 gm PO DAILY [facility] Last Admin: 08/14/18 10:02 Dose: 17 gm Tamsulosin HCl (Flomax -) 0.4 mg PO DAILY@0830 [facility] Last Admin: 08/14/18 08:49 Dose: 0.4 mg Last Vital Signs Temp Pulse Resp BP Pulse Ox 98.8 F 62 18 127/55 L 94 L 03/16/19 13:21 08/14/18 13:21 08/14/18 13:21 08/14/18 13:21 08/13/18 20:01 Lungs clear Heart reg Abd soft Ext no edema CBC, BMP 08/14/18 08:15 08/14/18 08:15 IMP- Renal function stable off IVF monitor for Contrast nephropathy
--- NOTE | 2018-08-14 16:14 | PN ---
Progress Note, Physician Chief Complaint: Hematuria History of Present Illness: awake and alert, confused NAD denies complaints of chest pain, SOB afebrile and no leukocytosis On tele monitor +Fungemia - Current Medication List Current Medications: Active Medications Acetaminophen (Tylenol -) 650 mg PO Q6H PRN PRN Reason: FEVER Last Admin: 08/09/18 21:38 Dose: 650 mg Amino Acids (Prosource No Carb Liquid Pkt) 30 ml PO BID@0800,1730 [facility] Last Admin: 08/14/18 08:49 Dose: 30 ml Amoxicillin (Amoxicillin -) 500 mg PO TID [facility] Last Admin: 08/14/18 13:49 Dose: 500 mg Ascorbic Acid (Vitamin C -) 500 mg PO BID [facility] Last Admin: 08/14/18 10:02 Dose: 500 mg Atorvastatin Calcium (Lipitor -) 20 mg PO HS [facility] Last Admin: 08/13/18 21:18 Dose: 20 mg Docusate Sodium (Colace -) 200 mg PO HS [facility] Last Admin: 08/13/18 21:19 Dose: 200 mg Finasteride (Proscar -) 5 mg PO HS [facility] Last Admin: 08/13/18 21:18 Dose: 5 mg Fluconazole (Diflucan 400 Mg/Ns Premixed Ivpb -) 200 mls @ 200 mls/hr IVPB DAILY [facility] Last Admin: 08/14/18 11:27 Dose: 200 mls/hr Metoprolol Tartrate (Lopressor -) 25 mg PO BID [facility] Last Admin: 08/14/18 10:02 Dose: 25 mg Multivitamins/Minerals/Vitamin C (Tab-A-Vit -) 1 tab PO DAILY [facility] Last Admin: 08/14/18 10:02 Dose: 1 tab Pantoprazole Sodium (Protonix -) 40 mg PO [facility] Last Admin: 08/13/18 21:18 Dose: 40 mg Polyethylene Glycol (Miralax (For Daily Use) -) 17 gm PO DAILY [facility] Last Admin: 08/14/18 10:02 Dose: 17 gm Tamsulosin HCl (Flomax -) 0.4 mg PO DAILY@0830 [facility] Last Admin: 08/14/18 08:49 Dose: 0.4 mg - Objective Vital Signs: Vital Signs Temperature 98.8 F 08/14/18 13:21 Pulse Rate 62 08/14/18 13:21 Respiratory Rate 18 08/14/18 13:21 Blood Pressure 127/55 L 08/14/18 13:21 O2 Sat by Pulse Oximetry (%) 97 08/14/18 09:00 Constitutional: Yes: No Distress, Calm, Cachectic Cardiovascular: Yes: Regular Rate and Rhythm Respiratory: Yes: Regular Gastrointestinal: Yes: Normal Bowel Sounds, Soft Musculoskeletal: Yes: Muscle Weakness Extremities: Yes: WNL Edema: No Peripheral Pulses WNL: Yes Neurological: Yes: Alert, Pre-Existing Deficit Psychiatric: Yes: Alert Labs: CBC, BMP 08/14/18 08:15 08/14/18 08:15 INR, PTT INR 1.13 (0.83-1.09) H 08/05/18 22:45 Problem List - Problems (1) EDI (acute kidney injury) Assessment/Plan: -Nephrology on board -Guerra -Cr improved and trending down -encourage PO fluids -monitor trend Code(s): N17.9 - ACUTE KIDNEY FAILURE, UNSPECIFIED (2) Altered mental status Assessment/Plan: 2/2 to metabolic encephalopathy -PO abx+ IV antifungal for fungemia -Seen by ID and Neurology -EEG done-results pending -CT head unremarkable Code(s): R41.82 - ALTERED MENTAL STATUS, UNSPECIFIED (3) Fungemia Assessment/Plan: -Cultures: Microbiology 08/09/18 14:30 Blood - Peripheral Venous Blood Culture - Final NO GROWTH AFTER 5 DAYS INCUBATION 08/09/18 13:10 Blood - Peripheral Venous Blood Culture - Final NO GROWTH AFTER 5 DAYS INCUBATION 08/12/18 06:15 Blood - Peripheral Venous Blood Culture - Preliminary NO GROWTH OBTAINED AFTER 48 HOURS, INCUBATION TO CONTINUE FOR 3 DAYS. 08/12/18 06:15 Blood - Peripheral Venous Blood Culture - Preliminary NO GROWTH OBTAINED AFTER 48 HOURS, INCUBATION TO CONTINUE FOR 3 DAYS. 08/06/18 00:05 Blood - Peripheral Venous Yeast/Fungus Identification - Final Nu Albicans 08/06/18 14:30 Blood - Peripheral Venous Blood Culture - Final Yeast Like Organism 08/05/18 22:48 Blood - Peripheral Venous Blood Culture - Final Yeast Like Organism 08/06/18 00:05 Blood - Peripheral Venous Blood Culture - Final Yeast Like Organism 08/06/18 13:40 Blood - Peripheral Venous Blood Culture - Final Yeast Like Organism 08/05/18 23:00 Urine - Urine Clean Catch Urine Culture - Final Enterococcus Faecalis -ID on board -IV abx and antifungal -afebrile -No leukocytosis Code(s): B49 - UNSPECIFIED MYCOSIS (4) Hematuria Assessment/Plan: -Guerra reinserted -Urology consult pending -Urine clear Code(s): R31.9 - HEMATURIA, UNSPECIFIED (5) UTI (urinary tract infection) Assessment/Plan: -Cultures: Microbiology 08/05/18 23:00 Urine - Urine Clean Catch Urine Culture - Final Enterococcus Faecalis -ID on board -PO abx and antifungal -afebrile -No leukocytosis Code(s): N39.0 - URINARY TRACT INFECTION, SITE NOT SPECIFIED (6) Anemia Assessment/Plan: -2/2 to hematuria -transfuse only if Hg below 7.0, to avoid fluid overload -Thyroid, B12, iron profile and stool ob negative -monitor trend Code(s): D64.9 - ANEMIA, UNSPECIFIED (7) Malnourished Assessment/Plan: -Added Prosource -Seen by Speech pathology -Advance diet to soft with thin liquids -Add ensure tid -Multivitamin -Vit C 500 mg po bid Code(s): E46 - UNSPECIFIED PROTEIN-CALORIE MALNUTRITION Qualifiers: Malnutrition type: protein-calorie malnutrition Assessment/Plan see problem list Physical therapy SCD's
[2018-08-14] MEDS: DOCUSATE SODIUM 100 MG CAPSULE (FP) PO SCH (21:10)
[2018-08-14] MEDS: FINASTERIDE 5 MG TABLET (FP) PO SCH (21:10)
[2018-08-14] MEDS: PANTOPRAZOLE 40 MG TABLET (FP) PO SCH (21:10)
[2018-08-14] MEDS: ATORVASTATIN CA 20 MG TABLET (FP) PO SCH (21:10)
[2018-08-14] MEDS: ACETAMINOPHEN 325 MG TABLET (FP) PO PRN (21:10)
[2018-08-14] MEDS ORDERED: DONEPEZIL HCL 5 MG TABLET (FP) PO SCH (22:00)
[2018-08-15] MEDS ORDERED: PT OWN MED DRAWER 7, Y5N ONE ×2 (05:07→09:04)
[2018-08-15] MEDS: AMOXICILLIN 500 MG CAPSULE (FP) PO SCH ×2 (05:32→14:00)
[2018-08-15 06:56] LABS: BASO % 0.7 % (0-2.0); EOS % 6.9 % (0-4.5); HEMATOCRIT 24.4 % (35.4-49); HEMOGLOBIN 8.5 GM/dL (11.7-16.9); MCHC 34.7 g/dl (32.0-35.9); MEAN CELL VOLUME 89.3 fl (80-96); MEAN PLT VOLUME 8.1 fl (7.5-11.1); MONO % 11.7 % (3.8-10.2); NEUT % 51.7 % (42.8-82.8); PLATELET COUNT 214 K/MM3 (134-434); RBC 2.74 M/mm3 (4.00-5.60); RDW 14.8 % (11.9-15.9); WHITE BLOOD COUNT 5.6 K/mm3 (4.0-10.0)
[2018-08-15 07:18] LABS: ALBUMIN 2.2 g/dl (3.4-5.0); ALK PHOS 109 U/L (45-117); ANION GAP 4 MMOL/L (8-16); BILIRUBIN,TOTAL 0.4 mg/dL (0.2-1); BLOOD UREA NITROGEN 24 mg/dL (7-18); CALCIUM 7.5 mg/dL (8.5-10.1); CHLORIDE 103 mmol/L (98-107); CO2 32 mmol/L (21-32); CREATININE 1.2 mg/dL (0.55-1.3); GLUCOSE,RANDOM 85 mg/dL (74-106); POTASSIUM 4.7 mmol/L (3.5-5.1); SGOT/AST 16 U/L (15-37); SGPT/ALT 22 U/L (13-61); SODIUM 138 mmol/L (136-145); TOT PROT 5.5 g/dl (6.4-8.2)
[2018-08-15 08:10] LABS: SERUM IRON SATURATION 15 % (15-55); TOTAL IRON BINDING CAPACITY 172 ug/dL (250-450); UIBC 146 ug/dL (111-343)
[2018-08-15] MEDS: POLYETHYLENE GLYCOL 3350 119 GM BTL PO SCH (09:18)
[2018-08-15] MEDS: MULTIVITAMINS (DAILY MVI) TABLET (FP) PO SCH (09:18)
[2018-08-15] MEDS: ASCORBIC ACID 500 MG TABLET (FP) PO SCH ×2 (09:18→21:16)
[2018-08-15] MEDS: TAMSULOSIN HCL 0.4 MG CAP PO SCH (09:18)
[2018-08-15] MEDS: METOPROLOL TARTRATE 25 MG TABLET (FP) PO SCH ×2 (09:18→21:16)
[2018-08-15] MEDS: AMINO ACIDS/PROTEIN HYDROLYS 30 ML LIQUID.PKT PO SCH ×2 (09:18→17:36)
[2018-08-15] MEDS: FLUCONAZOLE 400 MG/NS 200 ML IVPB SCH (09:20)
--- NOTE | 2018-08-15 14:01 | PN ---
Progress Note (short form) - Note Progress Note: no complaints Vital Signs Period Temp Pulse Resp BP Sys/Scott Pulse Ox Last 24 Hr 97.6 F-99.5 F 56-65 0-61 136-152/59-74 96-96 cor-rrr lungs clear abd soft,nt ext no edema +vazquez CBC, BMP 08/15/18 06:30 08/15/18 06:30 Microbiology 08/12/18 06:15 Blood - Peripheral Venous Blood Culture - Preliminary NO GROWTH OBTAINED AFTER 72 HOURS, INCUBATION TO CONTINUE FOR 2 DAYS. 08/12/18 06:15 Blood - Peripheral Venous Blood Culture - Preliminary NO GROWTH OBTAINED AFTER 72 HOURS, INCUBATION TO CONTINUE FOR 2 DAYS. 08/09/18 14:30 Blood - Peripheral Venous Blood Culture - Final NO GROWTH AFTER 5 DAYS INCUBATION 08/09/18 13:10 Blood - Peripheral Venous Blood Culture - Final NO GROWTH AFTER 5 DAYS INCUBATION 08/06/18 00:05 Blood - Peripheral Venous Yeast/Fungus Identification - Final Nu Albicans 08/06/18 14:30 Blood - Peripheral Venous Blood Culture - Final Yeast Like Organism 08/05/18 22:48 Blood - Peripheral Venous Blood Culture - Final Yeast Like Organism 08/06/18 00:05 Blood - Peripheral Venous Blood Culture - Final Yeast Like Organism 08/06/18 13:40 Blood - Peripheral Venous Blood Culture - Final Yeast Like Organism 08/05/18 23:00 Urine - Urine Clean Catch Urine Culture - Final Enterococcus Faecalis a/p fungemia- ?urinary source with vazquez manipulation-but urine culture did not grow yeast! not diabetic, not on steroids has completed one week of cancidas switch to diflucan would treat 2 weeks, can switch to po when ready for discharge-400 mg daily would get blood cultures off diflucan after he completes his treatment alk phos now normal repeat blood cultures are negative echo unrevealing optho consult negative would hold aricept until he completes the diflucan (drug interaction) d/c amox would avoid placing any prosthetic devices at this time if possible and procedure not urgent due to his fungemia needs blood cultures repeated one week after diflucan is stopped to confirm resolution of fungemia d/w covering hospitalist Problem List - Problems (1) UTI (urinary tract infection) Code(s): N39.0 - URINARY TRACT INFECTION, SITE NOT SPECIFIED (2) Hematuria Code(s): R31.9 - HEMATURIA, UNSPECIFIED (3) Urinary retention Code(s): R33.9 - RETENTION OF URINE, UNSPECIFIED
--- NOTE | 2018-08-15 16:21 | PN ---
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 pylonephritis Hematuria in setting of urinary tract infection Active Medications Acetaminophen (Tylenol -) 650 mg PO Q6H PRN PRN Reason: FEVER Last Admin: 08/14/18 21:10 Dose: 650 mg Amino Acids (Prosource No Carb Liquid Pkt) 30 ml PO BID@0800,1730 [facility] Last Admin: 08/15/18 09:18 Dose: 30 ml Ascorbic Acid (Vitamin C -) [address] [facility] Last Admin: 08/15/18 09:18 Dose: 500 mg Atorvastatin Calcium (Lipitor -) [address] [facility] Last Admin: 08/14/18 21:10 Dose: 20 mg Docusate Sodium (Colace -) [address] [facility] Last Admin: 08/14/18 21:10 Dose: 200 mg Finasteride (Proscar -) [address] [facility] Last Admin: 08/14/18 21:10 Dose: 5 mg Fluconazole (Diflucan 400 Mg/Ns Premixed Ivpb -) 200 mls @ 200 mls/hr IVPB DAILY [facility] Last Admin: 08/15/18 09:20 Dose: 200 mls/hr Metoprolol Tartrate (Lopressor -) [address] [facility] Last Admin: 08/15/18 09:18 Dose: 25 mg Multivitamins/Minerals/Vitamin C (Tab-A-Vit -) [address] [facility] Last Admin: 08/15/18 09:18 Dose: 1 tab Pantoprazole Sodium (Protonix -) [address] [facility] Last Admin: 08/14/18 21:10 Dose: 40 mg Polyethylene Glycol (Miralax (For Daily Use) -) [address] [facility] Last Admin: 08/15/18 09:18 Dose: 17 gm Tamsulosin HCl (Flomax -) 0.4 mg PO DAILY@0830 [facility] Last Admin: 08/15/18 09:18 Dose: 0.4 mg Last Vital Signs Temp Pulse Resp BP Pulse Ox 99.5 F 62 18 140/57 L 96 08/15/18 14:00 08/15/18 14:00 08/15/18 14:00 08/15/18 14:00 08/15/18 09:00 Lungs clear Heart reg Abd soft Ext no edema CBC, BMP 08/15/18 06:30 08/15/18 06:30 CBC, BMP 08/14/18 08:15 08/14/18 08:15 IMP- Renal function stable off IVF monitor for Contrast nephropathy
--- NOTE | 2018-08-15 16:39 | PN ---
Progress Note, Physician Chief Complaint: Hematuria History of Present Illness: awake and alert, confused NAD denies complaints of chest pain, SOB afebrile and no leukocytosis On tele monitor +Fungemia - Current Medication List Current Medications: Active Medications Acetaminophen (Tylenol -) 650 mg PO Q6H PRN PRN Reason: FEVER Last Admin: 08/14/18 21:10 Dose: 650 mg Amino Acids (Prosource No Carb Liquid Pkt) 30 ml PO BID@0800,1730 [facility] Last Admin: 08/15/18 09:18 Dose: 30 ml Ascorbic Acid (Vitamin C -) 500 mg PO BID [facility] Last Admin: 08/15/18 09:18 Dose: 500 mg Atorvastatin Calcium (Lipitor -) 20 mg PO HS [facility] Last Admin: 08/14/18 21:10 Dose: 20 mg Docusate Sodium (Colace -) 200 mg PO HS [facility] Last Admin: 08/14/18 21:10 Dose: 200 mg Finasteride (Proscar -) 5 mg PO HS [facility] Last Admin: 08/14/18 21:10 Dose: 5 mg Fluconazole (Diflucan 400 Mg/Ns Premixed Ivpb -) 200 mls @ 200 mls/hr IVPB DAILY [facility] Last Admin: 08/15/18 09:20 Dose: 200 mls/hr Metoprolol Tartrate (Lopressor -) 25 mg PO BID [facility] Last Admin: 08/15/18 09:18 Dose: 25 mg Multivitamins/Minerals/Vitamin C (Tab-A-Vit -) 1 tab PO DAILY [facility] Last Admin: 08/15/18 09:18 Dose: 1 tab Pantoprazole Sodium (Protonix -) 40 mg PO [facility] Last Admin: 08/14/18 21:10 Dose: 40 mg Polyethylene Glycol (Miralax (For Daily Use) -) 17 gm PO DAILY [facility] Last Admin: 08/15/18 09:18 Dose: 17 gm Tamsulosin HCl (Flomax -) 0.4 mg PO DAILY@0830 [facility] Last Admin: 08/15/18 09:18 Dose: 0.4 mg - Objective Vital Signs: Vital Signs Temperature 99.5 F 08/15/18 14:00 Pulse Rate 62 08/15/18 14:00 Respiratory Rate 18 08/15/18 14:00 Blood Pressure 140/57 L 08/15/18 14:00 O2 Sat by Pulse Oximetry (%) 96 03/17/19 09:00 Constitutional: Yes: No Distress, Calm, Cachectic Cardiovascular: Yes: Regular Rate and Rhythm Respiratory: Yes: Regular Gastrointestinal: Yes: Normal Bowel Sounds, Soft Genitourinary: Yes: WNL Musculoskeletal: Yes: Muscle Weakness Extremities: Yes: WNL Edema: No Peripheral Pulses WNL: Yes Neurological: Yes: Alert, Oriented Psychiatric: Yes: Alert, Oriented Labs: CBC, BMP 08/15/18 06:30 08/15/18 06:30 INR, PTT INR 1.13 (0.83-1.09) H 08/05/18 22:45 Problem List - Problems (1) EDI (acute kidney injury) Assessment/Plan: -Nephrology on board -Guerra -Cr improved and trending down -encourage PO fluids -monitor trend Code(s): N17.9 - ACUTE KIDNEY FAILURE, UNSPECIFIED (2) Altered mental status Assessment/Plan: 2/2 to metabolic encephalopathy -PO abx+ IV antifungal for fungemia -Seen by ID and Neurology -EEG done-results pending -CT head unremarkable Code(s): R41.82 - ALTERED MENTAL STATUS, UNSPECIFIED (3) Fungemia Assessment/Plan: -Cultures: Microbiology 08/09/18 14:30 Blood - Peripheral Venous Blood Culture - Final NO GROWTH AFTER 5 DAYS INCUBATION 08/09/18 13:10 Blood - Peripheral Venous Blood Culture - Final NO GROWTH AFTER 5 DAYS INCUBATION 08/12/18 06:15 Blood - Peripheral Venous Blood Culture - Preliminary NO GROWTH OBTAINED AFTER 48 HOURS, INCUBATION TO CONTINUE FOR 3 DAYS. 08/12/18 06:15 Blood - Peripheral Venous Blood Culture - Preliminary NO GROWTH OBTAINED AFTER 48 HOURS, INCUBATION TO CONTINUE FOR 3 DAYS. 08/06/18 00:05 Blood - Peripheral Venous Yeast/Fungus Identification - Final Nu Albicans 08/06/18 14:30 Blood - Peripheral Venous Blood Culture - Final Yeast Like Organism 08/05/18 22:48 Blood - Peripheral Venous Blood Culture - Final Yeast Like Organism 08/06/18 00:05 Blood - Peripheral Venous Blood Culture - Final Yeast Like Organism 08/06/18 13:40 Blood - Peripheral Venous Blood Culture - Final Yeast Like Organism 08/05/18 23:00 Urine - Urine Clean Catch Urine Culture - Final Enterococcus Faecalis -ID on board -IV abx and antifungal -afebrile -No leukocytosis Code(s): B49 - UNSPECIFIED MYCOSIS (4) Hematuria Assessment/Plan: -Guerra reinserted -Urology consult pending -Urine clear Code(s): R31.9 - HEMATURIA, UNSPECIFIED (5) UTI (urinary tract infection) Assessment/Plan: -Cultures: Microbiology 08/05/18 23:00 Urine - Urine Clean Catch Urine Culture - Final Enterococcus Faecalis -ID on board -PO abx and antifungal -afebrile -No leukocytosis Code(s): N39.0 - URINARY TRACT INFECTION, SITE NOT SPECIFIED (6) Anemia Assessment/Plan: -2/2 to hematuria -transfuse only if Hg below 7.0, to avoid fluid overload -Thyroid, B12, iron profile and stool ob negative -monitor trend Code(s): D64.9 - ANEMIA, UNSPECIFIED (7) Malnourished Assessment/Plan: -Added Prosource -Seen by Speech pathology -Advance diet to soft with thin liquids -Add ensure tid -Multivitamin -Vit C 500 mg po bid Code(s): E46 - UNSPECIFIED PROTEIN-CALORIE MALNUTRITION Qualifiers: Malnutrition type: protein-calorie malnutrition Assessment/Plan see problem list Physical therapy SCD's
[2018-08-15] MEDS: FERROUS SO4 325 MG TABLET (FP) PO SCH (17:36)
[2018-08-15] MEDS: ACETAMINOPHEN 325 MG TABLET (FP) PO PRN (19:38)
[2018-08-15] MEDS: DOCUSATE SODIUM 100 MG CAPSULE (FP) PO SCH (21:16)
[2018-08-15] MEDS: FINASTERIDE 5 MG TABLET (FP) PO SCH (21:16)
[2018-08-15] MEDS: ATORVASTATIN CA 20 MG TABLET (FP) PO SCH (21:16)
[2018-08-15] MEDS: PANTOPRAZOLE 40 MG TABLET (FP) PO SCH (21:16)
[2018-08-16 07:01] LABS: BASO % 0.7 % (0-2.0); EOS % 5.5 % (0-4.5); HEMATOCRIT 25.8 % (35.4-49); HEMOGLOBIN 9.1 GM/dL (11.7-16.9); LYMPH % 26.1 % (8-40); MCH 31.5 pg (25.7-33.7); MCHC 35.3 g/dl (32.0-35.9); MEAN CELL VOLUME 89.4 fl (80-96); MEAN PLT VOLUME 8.2 fl (7.5-11.1); MONO % 11.9 % (3.8-10.2); NEUT % 55.8 % (42.8-82.8); PLATELET COUNT 221 K/MM3 (134-434); RBC 2.89 M/mm3 (4.00-5.60); RDW 14.6 % (11.9-15.9)
[2018-08-16 07:32] LABS: ALBUMIN 2.2 g/dl (3.4-5.0); ALK PHOS 106 U/L (45-117); ANION GAP 5 MMOL/L (8-16); BILIRUBIN,TOTAL 0.3 mg/dL (0.2-1); BLOOD UREA NITROGEN 26 mg/dL (7-18); CALCIUM 8.1 mg/dL (8.5-10.1); CHLORIDE 102 mmol/L (98-107); CO2 30 mmol/L (21-32); CREATININE 1.2 mg/dL (0.55-1.3); GLUCOSE,RANDOM 85 mg/dL (74-106); POTASSIUM 4.4 mmol/L (3.5-5.1); SGOT/AST 15 U/L (15-37); SGPT/ALT 22 U/L (13-61); SODIUM 136 mmol/L (136-145); TOT PROT 5.5 g/dl (6.4-8.2)
[2018-08-16] MEDS: FERROUS SO4 325 MG TABLET (FP) PO SCH (08:18)
[2018-08-16] MEDS: TAMSULOSIN HCL 0.4 MG CAP PO SCH (08:18)
[2018-08-16] MEDS: AMINO ACIDS/PROTEIN HYDROLYS 30 ML LIQUID.PKT PO SCH ×2 (08:18→16:30)
[2018-08-16] MEDS: ASCORBIC ACID 500 MG TABLET (FP) PO SCH ×2 (10:17→22:39)
[2018-08-16] MEDS: MULTIVITAMINS (DAILY MVI) TABLET (FP) PO SCH (10:17)
[2018-08-16] MEDS: FLUCONAZOLE 400 MG/NS 200 ML IVPB SCH (10:18)
[2018-08-16] MEDS: METOPROLOL TARTRATE 25 MG TABLET (FP) PO SCH ×2 (10:18→22:39)
[2018-08-16] MEDS: POLYETHYLENE GLYCOL 3350 119 GM BTL PO SCH (10:20)
--- NOTE | 2018-08-16 11:21 | PN ---
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 No further f/u indicated.
--- NOTE | 2018-08-16 12:08 | PN ---
Progress Note (short form) - Note Progress Note: NEUROLOGY PROGRESS: Events reviewed and discussed with staff and [facility] [place]. Consult from Dr. Palencia appreciated. S/P Amoxicillin and Capsofungin for UTI. Still with urinary Candidiasis- transitioned to diflucan. Reported drug interaction with aricept and diflucan, so aricept d/c'd. Seen by vascular and plan for repair of Type B aortic dissection as outpatient. Still C/O hip pain - noted on CT A/P with possible hip arthropathy and ? Paget' s Disease. Alk Phos 150-> 108 ESR 38 CRP 2.9 TISH: Guerra in situ bright red blood near insertion site. 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 Difficult to test right leg due to R. Hip pain. NEURO EXAM: Does not remember me. Ox [facility]. July 2018. TRUMP. Recalls yesterday was " [facility]" Reduced rapid tongue. Gag ok. + glabella, snout, grasps Motor: Prominent rigidity at knees R > L. Decreased to vibration and temp to shins B/L Impression: 1. 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 Toxic-Metabolic Encephalopathy (Urosepsis- improving on antibiotics) 3. Chronic gait dysfunction with significant contributions from BUSINESS LAW TEACHER microvascular disease, R hip arthropathy and knee contractures. Suggest: Continue antibiotics and hydration Xray Hips and Pelvis Resume Donepezil 5 mg PO q AM once diflucan discontinued Continue PT for contractures and OOB to chair as tolerated Pt will likely still require SNF level of care. Thank you very much, Alfonso Crawford MD
--- NOTE | 2018-08-16 12:08 | DS ---
Physical Examination Vital Signs: Vital Signs Temperature 98.1 F 08/16/18 06:00 Pulse Rate 60 08/16/18 06:00 Respiratory Rate 18 08/16/18 06:00 Blood Pressure 158/67 08/16/18 06:00 O2 Sat by Pulse Oximetry (%) 96 08/15/18 20:44 Constitutional: Yes: Calm, Thin Neck: Yes: Trachea Midline Cardiovascular: Yes: Regular Rate and Rhythm, S1, S2 Respiratory: Yes: CTA Bilaterally Gastrointestinal: Yes: Normal Bowel Sounds, Soft Edema: No Neurological: Yes: Alert Labs: CBC, BMP 08/16/18 06:00 08/16/18 06:00 Discharge Summary Reason For Visit: URINARY TRACT INFECTION,SEPSIS Current Active Problems EDI (acute kidney injury) (Acute) Altered mental status (Acute) Anemia (Acute) Aortic dissection (Acute) BPH (benign prostatic hyperplasia) (Acute) Fungemia (Acute) HLD (hyperlipidemia) (Acute) HTN (hypertension) (Acute) Hematuria (Acute) Hematuria (Acute) Hyperkalemia (Acute) KOREY (iron deficiency anemia) (Acute) Malnourished (Acute) PAD (peripheral artery disease) (Acute) Poor circulation of extremity (Acute) Sepsis (Acute) UTI (urinary tract infection) (Acute) Urinary retention (Acute) Other Procedures: chest ct thoracic aorta dissection type B. echo normal LV size no wall motion abnormality ejection 60-65% Hospital Course: - Primary Care Physician PCP: Reynaldo Lynch - Admission Chief Complaint: Hematuria History of Present Illness: This is a 88 y/o man from [facility] with a PMHx of Colon Ca s/p resection, BPH, HTN, HLD, KOREY, GERD, Hernia, Migraine, Dysphagia. Who presents to the ED with hematuria after vazquez removal. Pt states he had a vazquez placed and it was removed yesterday. He endorses slight abdominal distension and discomfort. Denies fever, chills, cough, HALL, SOB, CP, palpitations, N/V/D, melena, hematochezia in hospital: UTI on iv to po abx course completed Microbiology 08/05/18 23:00 Urine - Urine Clean Catch Urine Culture - Final Enterococcus Faecalis FUngemia was on caspofungin now changed to iv fluconazole and then po diflucan 400mg po daily for 2 weeks Aricept on hold till diflucan course is complete one week after diflucan course is over then repeat blood cultures to see if fungemia has resolved aortic dissection seen by dr li who will do surgery later this month once repeat cultures negative - Instructions Diet, Activity, Other Instructions: diflucan 400mg po daily for 2 weeks check blood cultures once week after completing antibiotic to make sure fungemia has resolved follow up with dr Hamlet Hare at his office regarding aortic dissection repair restart aricept 5mg po AM after completing diflucan course Referrals: Reynaldo Lynch MD [Primary Care Provider] - Disposition: LONG TERM FACILITY - Home Medications Comprehensive Discharge Medication List: Ambulatory Orders Tamsulosin HCl 0.4 mg PO HS 09/30/12 Metoprolol Tartrate [Lopressor -] 12.5 mg PO BID 08/02/13 Simvastatin [Zocor] 40 mg PO HS 08/04/13 Cholecalciferol (Vitamin D3) [Vitamin D] 2,000 unit PO DAILY 10/15/15 Docusate Sodium [Colace -] 200 mg PO HS 10/15/15 Finasteride [Proscar -] 5 mg PO HS 10/15/15 Omeprazole [Prilosec] 40 mg PO HS 10/15/15 Aspirin [ASA -] 81 mg PO Q2D 10/24/15
--- NOTE | 2018-08-16 12:51 | PN ---
Progress Note, Physician - Current Medication List Current Medications: Active Medications Acetaminophen (Tylenol -) 650 mg PO Q6H PRN PRN Reason: FEVER Last Admin: 08/15/18 19:38 Dose: 650 mg Amino Acids (Prosource No Carb Liquid Pkt) 30 ml PO BID@0800,1730 [facility] Last Admin: 08/16/18 08:18 Dose: 30 ml Ascorbic Acid (Vitamin C -) 500 mg PO BID [facility] Last Admin: 08/16/18 10:17 Dose: 500 mg Atorvastatin Calcium (Lipitor -) 20 mg PO [facility] Last Admin: 08/15/18 21:16 Dose: 20 mg Docusate Sodium (Colace -) 200 mg PO HS [facility] Last Admin: 08/15/18 21:16 Dose: 200 mg Ferrous Sulfate (Feosol -) 325 mg PO DAILY@0800 [facility] Last Admin: 08/16/18 08:18 Dose: 325 mg Finasteride (Proscar -) 5 mg PO [facility] Last Admin: 08/15/18 21:16 Dose: 5 mg Fluconazole (Diflucan 400 Mg/Ns Premixed Ivpb -) 200 mls @ 200 mls/hr IVPB DAILY [facility] Last Admin: 08/16/18 10:18 Dose: 200 mls/hr Metoprolol Tartrate (Lopressor -) 25 mg PO BID [facility] Last Admin: 08/16/18 10:18 Dose: 25 mg Multivitamins/Minerals/Vitamin C (Tab-A-Vit -) 1 tab PO DAILY [facility] Last Admin: 08/16/18 10:17 Dose: 1 tab Pantoprazole Sodium (Protonix -) 40 mg PO [facility] Last Admin: 08/15/18 21:16 Dose: 40 mg Polyethylene Glycol (Miralax (For Daily Use) -) 17 gm PO DAILY [facility] Last Admin: 08/16/18 10:20 Dose: 17 gm Tamsulosin HCl (Flomax -) 0.4 mg PO DAILY@0830 [facility] Last Admin: 08/16/18 08:18 Dose: 0.4 mg - Objective Vital Signs: Vital Signs Temperature 98.1 F 08/16/18 06:00 Pulse Rate 60 08/16/18 06:00 Respiratory Rate 18 08/16/18 06:00 Blood Pressure 158/67 08/16/18 06:00 O2 Sat by Pulse Oximetry (%) 96 08/15/18 20:44 Labs: CBC, BMP 08/16/18 06:00 08/16/18 06:00 INR, PTT INR 1.13 (0.83-1.09) H 08/05/18 22:45 Problem List - Problems (1) Anemia Assessment/Plan: iron panel noted Code(s): D64.9 - ANEMIA, UNSPECIFIED (2) BPH (benign prostatic hyperplasia) Assessment/Plan: flomax Code(s): N40.0 - BENIGN PROSTATIC HYPERPLASIA WITHOUT LOWER URINRY TRACT SYMP (3) Fungemia Assessment/Plan: repeat blood cultures negative on diflcan for another 2 weeks repeat blood culture once week after stopping abx change iv diflucan to po diflucan 400mg po daily aricept on hold till diflucan course is completed Code(s): B49 - UNSPECIFIED MYCOSIS (4) HLD (hyperlipidemia) Assessment/Plan: statin Code(s): E78.5 - HYPERLIPIDEMIA, UNSPECIFIED (5) HTN (hypertension) Assessment/Plan: metorprolol Code(s): I10 - ESSENTIAL (PRIMARY) HYPERTENSION (6) UTI (urinary tract infection) Assessment/Plan: Microbiology 08/05/18 23:00 Urine - Urine Clean Catch Urine Culture - Final Enterococcus Faecalis on amoxicllin completed Code(s): N39.0 - URINARY TRACT INFECTION, SITE NOT SPECIFIED (7) Urinary retention Code(s): R33.9 - RETENTION OF URINE, UNSPECIFIED
[2018-08-16] MEDS: DOCUSATE SODIUM 100 MG CAPSULE (FP) PO SCH (22:39)
[2018-08-16] MEDS: FINASTERIDE 5 MG TABLET (FP) PO SCH (22:39)
[2018-08-16] MEDS: ATORVASTATIN CA 20 MG TABLET (FP) PO SCH (22:39)
[2018-08-16] MEDS: PANTOPRAZOLE 40 MG TABLET (FP) PO SCH (22:39)
[2018-08-17] MEDS: AMINO ACIDS/PROTEIN HYDROLYS 30 ML LIQUID.PKT PO SCH (08:06)
[2018-08-17] MEDS: TAMSULOSIN HCL 0.4 MG CAP PO SCH (08:06)
[2018-08-17] MEDS: FERROUS SO4 325 MG TABLET (FP) PO SCH (08:06)
[2018-08-17] MEDS: MULTIVITAMINS (DAILY MVI) TABLET (FP) PO SCH (09:19)
[2018-08-17] MEDS: ASCORBIC ACID 500 MG TABLET (FP) PO SCH (09:19)
[2018-08-17] MEDS: METOPROLOL TARTRATE 25 MG TABLET (FP) PO SCH (09:19)
[2018-08-17] MEDS: POLYETHYLENE GLYCOL 3350 119 GM BTL PO SCH (09:20)
--- NOTE | 2018-08-17 09:33 | CON.GU ---
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: Yes: Migraine Cardio/Vascular: Yes: AFIB, HTN, Hyperlipdemia Gastrointestinal: Yes: Cancer (Colon), GERD, Other (Hernia) Renal/: Yes: BPH - Alcohol/Substance Use Hx Alcohol Use: No History of Substance Use: reports: None - Smoking History Smoking history: Never smoked Have you smoked in the past 12 months: No Aproximately how many cigarettes per day: 0 - Social History ADL: Support Services History of Recent Travel: No Home Medications - Allergies Allergies/Adverse Reactions: Allergies Allergy/AdvReac Type Severity Reaction Status Date / Time No Known Drug Allergies Allergy Verified 08/05/18 21:40 - Home Medications Home Medications: Ambulatory Orders Tamsulosin HCl 0.4 mg PO HS 09/30/12 Simvastatin [Zocor -] 40 mg PO HS 08/04/13 Cholecalciferol (Vitamin D3) [Vitamin D3] 2,000 unit PO DAILY 10/15/15 Docusate Sodium [Colace -] 200 mg PO HS 10/15/15 Finasteride [Proscar -] 5 mg PO HS 10/15/15 Omeprazole [Prilosec] 40 mg PO HS 10/15/15 Aspirin [ASA -] 81 mg PO Q2D 10/24/15 Fluconazole [Diflucan -] 400 mg PO DAILY #14 tablet 08/16/18 Metoprolol Tartrate [Lopressor -] 25 mg PO BID #60 tablet 08/16/18 Physical Exam- Vital Signs: Vital Signs Temperature 97.4 F L 08/17/18 05:51 Pulse Rate 59 L 08/17/18 05:51 Respiratory Rate 16 08/17/18 05:51 Blood Pressure 149/65 08/17/18 05:51 O2 Sat by Pulse Oximetry (%) 98 08/16/18 21:00 Labs: CBC, BMP 08/16/18 06:00 08/16/18 06:00 Assessment/Plan This 88 year old male was seen with hx of acute Urinary retention and UTI with hematuria. Has indwelling vazquez draining clear urine. Pt says he is going to be discharged with the catheter. UTI was treated with ABX and seems to have responded well. Will follow as necessary. Thank you
[2018-08-17] MEDS ORDERED: FLUCONAZOLE 100 MG TABLET (UD) PO SCH (10:00)
--- NOTE | 2018-08-17 10:15 | PN ---
Progress Note (short form) - Note Progress Note: No Complaints VSS Abd soft On Diflucan for 2 weeks. I will arrange for repair of dissection after end of treatment. Office visit in 2 weeks.
[2018-08-17 10:21] VITALS: PULSE 61
--- NOTE | 2018-08-17 10:56 | PN ---
Progress Note, Physician Chief Complaint: Hematuria History of Present Illness: awake and alert, confused NAD denies complaints of chest pain, SOB afebrile and no leukocytosis On tele monitor +Fungemia Fluconazole changed to PO-for 2 weeks Blood cultures in 1 week Follow up with Dr Palencia outpatient for evaluation of aortic dissection - Current Medication List Current Medications: Active Medications Acetaminophen (Tylenol -) 650 mg PO Q6H PRN PRN Reason: FEVER Last Admin: 08/15/18 19:38 Dose: 650 mg Amino Acids (Prosource No Carb Liquid Pkt) 30 ml PO BID@0800,1730 [facility] Last Admin: 08/17/18 08:06 Dose: 30 ml Ascorbic Acid (Vitamin C -) 500 mg PO BID [facility] Last Admin: 08/17/18 09:19 Dose: 500 mg Atorvastatin Calcium (Lipitor -) 20 mg PO [facility] Last Admin: 08/16/18 22:39 Dose: 20 mg Docusate Sodium (Colace -) 200 mg PO [facility] Last Admin: 08/16/18 22:39 Dose: 200 mg Ferrous Sulfate (Feosol -) 325 mg PO DAILY@0800 [facility] Last Admin: 08/17/18 08:06 Dose: 325 mg Finasteride (Proscar -) 5 mg PO [facility] Last Admin: 08/16/18 22:39 Dose: 5 mg Fluconazole (Diflucan -) 400 mg PO DAILY [facility] Stop: 08/31/18 09:59 Last Admin: 08/17/18 09:19 Dose: 400 mg Metoprolol Tartrate (Lopressor -) 25 mg PO BID [facility] Last Admin: 08/17/18 09:19 Dose: 25 mg Multivitamins/Minerals/Vitamin C (Tab-A-Vit -) 1 tab PO DAILY [facility] Last Admin: 08/17/18 09:19 Dose: 1 tab Pantoprazole Sodium (Protonix -) 40 mg PO HS [facility] Last Admin: 08/16/18 22:39 Dose: 40 mg Polyethylene Glycol (Miralax (For Daily Use) -) 17 gm PO DAILY [facility] Last Admin: 08/17/18 09:20 Dose: 17 gm Tamsulosin HCl (Flomax -) 0.4 mg PO DAILY@0830 [facility] Last Admin: 08/17/18 08:06 Dose: 0.4 mg - Objective Vital Signs: Vital Signs Temperature 97.6 F 08/17/18 10:00 Pulse Rate 61 08/17/18 10:00 Respiratory Rate 18 08/17/18 10:00 Blood Pressure 145/61 08/17/18 10:00 O2 Sat by Pulse Oximetry (%) 98 08/16/18 21:00 Constitutional: Yes: No Distress, Calm, Cachectic Cardiovascular: Yes: Regular Rate and Rhythm Respiratory: Yes: Regular Gastrointestinal: Yes: WNL Musculoskeletal: Yes: Muscle Weakness Extremities: Yes: WNL Edema: No Peripheral Pulses WNL: Yes Neurological: Yes: Alert, Pre-Existing Deficit Psychiatric: Yes: Alert Labs: CBC, BMP 08/16/18 06:00 08/16/18 06:00 INR, PTT INR 1.13 (0.83-1.09) H 08/05/18 22:45 Problem List - Problems (1) EDI (acute kidney injury) Assessment/Plan: -resolved, at baseline -Nephrology on board -Guerra reinserted on 08/05/18, to be changed on 09/05/18 -Cr improved and trending down -encourage PO fluids -monitor trend Code(s): N17.9 - ACUTE KIDNEY FAILURE, UNSPECIFIED (2) Altered mental status Assessment/Plan: 07/03 to metabolic encephalopathy -PO abx+ IV antifungal for fungemia -Seen by ID and Neurology -EEG done-results pending -CT head unremarkable Code(s): R41.82 - ALTERED MENTAL STATUS, UNSPECIFIED (3) Fungemia Assessment/Plan: -Cultures: Microbiology 08/09/18 14:30 Blood - Peripheral Venous Blood Culture - Final NO GROWTH AFTER 5 DAYS INCUBATION 08/09/18 13:10 Blood - Peripheral Venous Blood Culture - Final NO GROWTH AFTER 5 DAYS INCUBATION 08/12/18 06:15 Blood - Peripheral Venous Blood Culture - Preliminary NO GROWTH OBTAINED AFTER 48 HOURS, INCUBATION TO CONTINUE FOR 3 DAYS. 08/12/18 06:15 Blood - Peripheral Venous Blood Culture - Preliminary NO GROWTH OBTAINED AFTER 48 HOURS, INCUBATION TO CONTINUE FOR 3 DAYS. 08/06/18 00:05 Blood - Peripheral Venous Yeast/Fungus Identification - Final Nu Albicans 08/06/18 14:30 Blood - Peripheral Venous Blood Culture - Final Yeast Like Organism 08/05/18 22:48 Blood - Peripheral Venous Blood Culture - Final Yeast Like Organism 08/06/18 00:05 Blood - Peripheral Venous Blood Culture - Final Yeast Like Organism 08/06/18 13:40 Blood - Peripheral Venous Blood Culture - Final Yeast Like Organism 08/05/18 23:00 Urine - Urine Clean Catch Urine Culture - Final Enterococcus Faecalis -ID on board -completed IV abx and antifungal -Fluconazole 400 mg po daily for 2 weeks -afebrile -No leukocytosis Code(s): B49 - UNSPECIFIED MYCOSIS (4) Hematuria Assessment/Plan: -Guerra reinserted -Urology consult appreciated -Urine clear Code(s): R31.9 - HEMATURIA, UNSPECIFIED (5) UTI (urinary tract infection) Assessment/Plan: -Cultures: Microbiology 08/05/18 23:00 Urine - Urine Clean Catch Urine Culture - Final Enterococcus Faecalis -ID on board -Complete IV abx -PO antifungal -afebrile -No leukocytosis Code(s): N39.0 - URINARY TRACT INFECTION, SITE NOT SPECIFIED (6) Anemia Assessment/Plan: -2/2 to hematuria -Ferrous sulfate started, H/H improving gradually -transfuse only if Hg below 7.0, to avoid fluid overload -Thyroid, B12, iron profile and stool ob negative -monitor trend Code(s): D64.9 - ANEMIA, UNSPECIFIED (7) Malnourished Assessment/Plan: -Added Prosource -Seen by Speech pathology -Advance diet to soft with thin liquids -Add ensure tid -Multivitamin -Vit C 500 mg po bid Code(s): E46 - UNSPECIFIED PROTEIN-CALORIE MALNUTRITION Qualifiers: Malnutrition type: protein-calorie malnutrition Assessment/Plan see problem list Physical therapy SCD's
[2018-08-17 13:41] VITALS: BP 122/53; TEMP 98
== END 2018-08-17 16:59 | DRG 867 ==
LOC: JER 21:24 → JERBED 08-06 00:25 → J7W 08-06 06:00 → J4S 08-12 21:37
PROVIDERS: ADMIT Family Medicine; ATTEND Family Medicine
DX: B49 Unspecified mycosis (principal); G93.41 Metabolic encephalopathy; I71.02 Dissection of abdominal aorta; N39.0 Urinary tract infection, site not specified; N17.9 Acute kidney failure, unspecified; Q61.02 Congenital multiple renal cysts; E46 Unspecified protein-calorie malnutrition; Z68.1 Body mass index [BMI] 19.9 or less, adult; R64 Cachexia; N40.1 Benign prostatic hyperplasia with lower urinary tract symptoms; R31.9 Hematuria, unspecified; I25.10 Atherosclerotic heart disease of native coronary artery without angina pectoris; E11.9 Type 2 diabetes mellitus without complications; Z85.038 Personal history of other malignant neoplasm of large intestine; N18.9 Chronic kidney disease, unspecified; I12.9 Hypertensive chronic kidney disease with stage 1 through stage 4 chronic kidney disease, or unspecified chronic kidney disease; R41.82 Altered mental status, unspecified; E78.5 Hyperlipidemia, unspecified; R33.8 Other retention of urine; E87.5 Hyperkalemia; I73.9 Peripheral vascular disease, unspecified; D50.9 Iron deficiency anemia, unspecified; K21.9 Gastro-esophageal reflux disease without esophagitis
CPT/HCPCS: 36415; 70450-TC; 71045-TC-FY; 71250-TC; 71260-TC; 73523-TC-FY; 74176-TC; 74177-TC; 76775-TC; 80048; 80053; 80061; 81003; 81015; 82272; 82570; 82607; 82728; 82803; 82962; 83540; 83550; 83605; 83721; 83735; 84100; 84156; 84300; 84439; 84443; 84484; 85025; 85027; 85610; 85651; 85730; 86140; 86593; 87040; 87077; 87086; 87106; 87186; 87205; 87389; 87449; 93005; 93010; 93306-TC; 95816; 97116-GP; 97162-GP; 99283-25; J0131; J0637; J7030

== ENCOUNTER 2018-09-07 09:43 | Inpatient (IN) | payer OTHER, BC ==
--- NOTE | 2018-09-07 10:21 | PDOC ---
History of Present Illness - General Chief Complaint: Palpitations Stated Complaint: PALPITATIONS Time Seen by Provider: 09/07/18 10:20 - History of Present Illness Initial Comments: 88yo M with PMH of aortic dissection, CAD s/p stent, metastatic colon cancer s/ p resection, HTN, HLD, BPH, DM, GERD, Hernia, Migraine, Dysphagia coming from [facility] with chest discomfort x 14 hours. Patient states the episode started last night while he was sleeping. It is intermittent, worsened with certain movements and going away on its own. Has never had anything like this before. Denies shortness of breath, nausea, vomiting, or diaphoresis. Patient cannot describe the sensation, but states it is "annoying" and located on the left side of his chest. It was concerning enough that he called an aide over regarding this chest sensation. He was noted to be tachycardic in the 90s and sent to the ED for further evaluation. Patient is mostly bedbound at [facility], even needing assistance to go to the bathroom. He describes attending rehab at this hospital and endorses some minor hip discomfort related to the exercises he had done yesterday. Patient also reports doing upper body exercises. He has an appointment on to see a vascular specialist, Dr. Myles. No hemoptysis, no recent surgical history, no hormone use, no history of DVT or PE. Denies fever and chills. Past History - Past Medical History Allergies/Adverse Reactions: Allergies Allergy/AdvReac Type Severity Reaction Status Date / Time No Known Drug Allergies Allergy Verified 09/07/18 10:09 Home Medications: Ambulatory Orders Aa/Hydrolyzed Collagen, Whey [Lps Neutral Flavor Liquid] 30 ml PO BID 09/07/18 Acetaminophen 650 mg PO Q6H 09/07/18 Aspirin [ASA -] 81 mg PO DAILY 09/07/18 Bismuth Tribromoph/Petrolatum [Xeroform Petrolatum Dress] 1 each TP DAILY Cholecalciferol (Vitamin D3) [Vitamin D3] 2,000 unit PO DAILY 09/07/18 Docusate Sodium [Colace] 200 mg PO HS 09/07/18 Donepezil HCl [Aricept -] 5 mg PO HS 09/07/18 Finasteride 5 mg PO HS 09/07/18 Folic Acid - 1 mg PO DAILY 09/07/18 Metoprolol Tartrate 25 mg PO BID 09/07/18 Omeprazole 40 mg PO DAILY 09/07/18 Simvastatin 40 mg PO HS 09/07/18 Tamsulosin HCl 0.4 mg PO HS 09/07/18 Anemia: Yes Asthma: No Cancer: Yes (COLON) Cardiac Disorders: Yes (A-FIB) CVA: No COPD: No CHF: No Dementia: No Diabetes: Yes (NO MEDS) GI Disorders: Yes (COLON CANCER,DIVERTICULOSIS,GERD.REFLUX,HEMORRHOIDS,HIATAL HERNIA,COLON YASMIN) Disorders: No HTN: Yes Hypercholesterolemia: Yes Liver Disease: No Seizures: No Thyroid Disease: No - Surgical History Abdominal Surgery: Yes (COLON RESECTION) Appendectomy: No Cardiac Surgery: Yes (CARDIAC CATH-10/18/12) Cholecystectomy: No Lung Surgery: No Neurologic Surgery: No Orthopedic Surgery: No - Immunization History Immunization Up to Date: Yes - Suicide/Smoking/Psychosocial Hx Smoking Status: No Smoking History: Former smoker Have you smoked in the past 12 months: No Number of Cigarettes Smoked Daily: 0 Information on smoking cessation initiated: No Hx Alcohol Use: No Drug/Substance Use Hx: No Substance Use Type: None Review of Systems - Review of Systems Comments:: Constitutional: no fever, no chills HEENT: no throat pain, no dysphagia Cardiovascular: +chest pain, no palpitations Respiratory: no cough, no shortness of breath Gastrointestinal: no abdominal pain, no nausea Genitourinary: no dysuria, no frequency Musculoskeletal: no myalgia, no arthralgia Skin: no rash, +skin irritation Neurologic: no headache, no weakness *Physical Exam - Vital Signs Last Vital Signs Temp Pulse Resp BP Pulse Ox 99.9 F H 99 H 18 117/57 L 96 09/07/18 10:04 09/07/18 10:04 09/07/18 10:04 09/07/18 10:04 09/07/18 10:04 - Physical Exam Comments: General: Awake, alert, and fully oriented, in no acute distress Head: No signs of trauma Eyes: EOMI, sclera anicteric ENT: Dry mucus membranes Neck: Normal ROM, supple Lungs: Lungs clear, Normal breath sounds Cardio: Regular rhythm, S1 and S2 present Abdomen: Soft, nontender : Guerra catheter in place Extremities: Distal pulses present, discoloration present on LLL, dry skin on bilateral heels SKIN: Warm, Dry, normal turgor Neurologic: Cranial nerves II through XII grossly intact. Normal speech ED Treatment Course - LABORATORY CBC & Chemistry Diagram: 09/07/18 11:15 09/07/18 11:15 Medical Decision Making - Medical Decision Making 88yo M with PMH of aortic dissection, CAD s/p stent, metastatic colon cancer s/ p resection, HTN, HLD, BPH, DM, GERD, Hernia, Migraine, Dysphagia coming from [facility] with chest discomfort x 14 hours. DDX including but not limited to ACS, worsening dissection, PE, PNA, UTI VSS significant for rectal temperature 100.3, tachycardic at 99 Cardiac and sepsis workup EKG: rate 98, QTc 459, NSR 1g Ofirmev 500cc fluid bolus for gentle hydration Will reassess HR after meds given as tachycardia may worsen aortic dissection and may necessitate further rate control 09/07/18 11:18 Portable CXR: No acute chest pathology, elevated right hemidiaphragm, per radiology report 09/07/18 11:27 Vanc/Zosyn ordered Hgb at baseline, No leukocytosis Lactate normal 09/07/18 12:02 Cr elevated at 1.5 (up from 1.2), mild EDI, another 500cc fluid bolus ordered for hydration Tpn negative CK elevated 1271 UA positive for infection with 1+ LE, 19 WBCs, 3+ hematuria Plan to admit 09/07/18 12:24 Discussed case with Renato Kirby NP, who accepted patient for admission under Dr. Lynch/Cheikh. Consult for Dr. Woodward, GUICHO, placed per inpatient team request. 09/07/18 13:50 *DC/Admit/Observation/Transfer Diagnosis at time of Disposition: Sepsis Qualifiers: Sepsis type: sepsis due to unspecified organism Qualified Code(s): A41.9 - Sepsis, unspecified organism - Discharge Dispostion Condition at time of disposition: Guarded Decision to Admit order: Yes - Referrals - Patient Instructions - Post Discharge Activity
--- NOTE | 2018-09-07 10:27 | PDOC ---
Attending Attestation - Resident Resident Name: Misty Sargent - HPI HPI: 09/07/18 11:29 Pt presents to the ED complaining of several hours of vague, right sided chest discomfort. Denies fever, nausea and vomiting or shortness of breath. Denies pain, but is unable to further describe the sensation in his chest. Of note, patient has an extensive past medical history as described in the resident note , including a recent history of descending aortic dissection, treated medically. 09/07/18 11:42 - Physicial Exam PE: 09/07/18 11:42 Agree with resident exam. Patient is alert and in no acute distress. Lungs are clear. Heart has regular rate and rhythm, without murmurs. Abdomen soft, non tender and non distended without guarding or rebound. - Medical Decision Making 09/07/18 11:45 Pt presents to the ED with mild tachycardia and vague R sided chest discomfort. Extensive past medical history as discussed above. Low grade fever rectally. Differential includes sepsis, PNA, PE, ACS, less likely worsening dissection. Will check labs, lactate and blood cx, and CT angio of the chest. Will admit to medicine for continued management.
[2018-09-07] MEDS ORDERED: SODIUM CHLORIDE 500 ML IV STA ×2 (10:58→12:15)
[2018-09-07] MEDS ORDERED: ACETAMINOPHEN 1000 MG/100 ML VIAL (NON FORMULARY) IVPB ONE (11:15)
[2018-09-07 11:32] LABS: BASO % 0.9 % (0-2.0); EOS % 1.2 % (0-4.5); HEMATOCRIT 27.7 % (35.4-49); HEMOGLOBIN 9.2 GM/dL (11.7-16.9); LYMPH % 22.8 % (8-40); MCH 29.3 pg (25.7-33.7); MCHC 33.4 g/dl (32.0-35.9); MEAN CELL VOLUME 87.7 fl (80-96); MEAN PLT VOLUME 8.5 fl (7.5-11.1); MONO % 8.9 % (3.8-10.2); NEUT % 66.2 % (42.8-82.8); PLATELET COUNT 230 K/MM3 (134-434); RBC 3.15 M/mm3 (4.00-5.60); RDW 15.5 % (11.9-15.9); WHITE BLOOD COUNT 6.1 K/mm3 (4.0-10.0)
[2018-09-07 11:45] LABS: INR 1.28 (0.83-1.09); PROTHROMBIN TIME (PATIENT) 15.2 SEC (9.7-13.0)
[2018-09-07] MEDS ORDERED: VANCOMYCIN 1,000 MG in DEXTROSE 5%-WATER - 250 ML IVPB ONE (11:54)
[2018-09-07] MEDS ORDERED: PIPERACILLIN/TAZOB 4.5 GM 4.5 GM in DEXTROSE 5%-WATER 100 ML IVPB ONE (11:54)
[2018-09-07 12:07] LABS: EPI CELLS 5.5 /HPF (0-5); URINE APPEARANCE CLOUDY; URINE BACTERIA 14.1 /hpf (NEGATIVE); URINE BILIRUBIN NEGATIVE (NEGATIVE); URINE CASTS 24 /hpf (0-8); URINE COLOR YELLOW; URINE GLUCOSE (UA) NEGATIVE (NEGATIVE); URINE KETONE NEGATIVE (NEGATIVE); URINE LEUK ESTERASE 1+ (NEGATIVE); URINE NITRITE NEGATIVE (NEGATIVE); URINE PROTEIN 1+ (NEGATIVE); URINE RBC 4 /hpf (0-4); URINE WBC 19 /hpf (0-5)
[2018-09-07] MEDS ORDERED: PIPERACILLIN/TAZOB 4.5 GM 4.5 GM/100 ML BAG IVPB ONE (12:08)
[2018-09-07] MEDS ORDERED: VANCOMYCIN 1 GRAM (PRE-DOCKED) 1,000 MG/250 ML BAG IVPB ONE (12:09)
[2018-09-07 12:12] LABS: ALBUMIN 2.1 g/dl (3.4-5.0); ALK PHOS 81 U/L (45-117); ANION GAP 6 MMOL/L (8-16); BILIRUBIN,TOTAL 0.2 mg/dL (0.2-1); BLOOD UREA NITROGEN 44 mg/dL (7-18); CALCIUM 8.2 mg/dL (8.5-10.1); CHLORIDE 102 mmol/L (98-107); CO2 29 mmol/L (21-32); CREATININE 1.5 mg/dL (0.55-1.3); GLUCOSE,RANDOM 185 mg/dL (74-106); POTASSIUM 4.4 mmol/L (3.5-5.1); SGOT/AST 96 U/L (15-37); SGPT/ALT 35 U/L (13-61); SODIUM 137 mmol/L (136-145); TOT PROT 6.1 g/dl (6.4-8.2)
[2018-09-07] MEDS ORDERED: ACETAMINOPHEN 325 MG TABLET (FP) PO PRN (13:57)
--- NOTE | 2018-09-07 14:35 | EKG ---
Test Reason : Blood Pressure : / mmHG Vent. Rate : 098 BPM Atrial Rate : 098 BPM P-R Int : 156 ms QRS Dur : 086 ms QT Int : 360 ms P-R-T Axes : 036 012 052 degrees QTc Int : 459 ms POOR DATA QUALITY, INTERPRETATION MAY BE ADVERSELY AFFECTED NORMAL SINUS RHYTHM NORMAL ECG WHEN COMPARED WITH ECG OF 05-AUG-2018 23:40, NO SIGNIFICANT CHANGE WAS FOUND Confirmed by MD Kalie, Major ([id number]) on 09/07/2018 2:35:09 PM Referred By: Confirmed By:Major Jade MD
--- NOTE | 2018-09-07 16:56 | HP ---
Admitting History and Physical - Primary Care Physician PCP: Reynaldo Lynch - Admission Chief Complaint: Chest pain History of Present Illness: Patient is an 88 y/o male with past medical history of aortic dissection, CAD s/ p stent, Metastatic colon CA with resection, HTN, HLD, BPH, DM, GERD, Hernia, Migraine, Headache, Dysphagia. Patient presented to ER from [facility] after experiencing L sided chest discomfort which began last night. Patient states pain was non-radiating and nothing particulary exacerbated or relieved the pain. Patient denied shortness of breath or dyspnea with chest discomfort. Patient states also having L sided rib pain after doing exercises in the intermediate. In ER noted with rectal temp 100.3F and UA positive for 1+ leukocytes, 3+ blood, 1+ protein. 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 Cardiovascular: Yes: AFIB, HTN, Hyperlipdemia Gastrointestinal: Yes: Cancer (Colon), GERD, Other (Hernia) Renal/: Yes: BPH Heme/Onc: Yes: Anemia - Smoking History Smoking history: Former smoker Have you smoked in the past 12 months: No Aproximately how many cigarettes per day: 0 - Alcohol/Substance Use Hx Alcohol Use: No History of Substance Use: reports: None - Social History Usual Living Arrangement: Yes: Intermediate ADL: Support Services History of Recent Travel: No Home Medications - Allergies Allergies/Adverse Reactions: Allergies Allergy/AdvReac Type Severity Reaction Status Date / Time No Known Drug Allergies Allergy Verified 09/07/18 10:09 - Home Medications Home Medications: Ambulatory Orders Aa/Hydrolyzed Collagen, Whey [Lps Neutral Flavor Liquid] 30 ml PO BID 09/07/18 Acetaminophen 650 mg PO Q6H 09/07/18 Aspirin [ASA -] 81 mg PO DAILY 09/07/18 Bismuth Tribromoph/Petrolatum [Xeroform Petrolatum Dress] 1 each TP DAILY Cholecalciferol (Vitamin D3) [Vitamin D3] 2,000 unit PO DAILY 09/07/18 Docusate Sodium [Colace] 200 mg PO HS 09/07/18 Donepezil HCl [Aricept -] 5 mg PO HS 09/07/18 Finasteride 5 mg PO HS 09/07/18 Folic Acid - 1 mg PO DAILY 09/07/18 Metoprolol Tartrate 25 mg PO BID 09/07/18 Omeprazole 40 mg PO DAILY 09/07/18 Simvastatin 40 mg PO HS 09/07/18 Tamsulosin HCl 0.4 mg PO HS 09/07/18 Review of Systems - Review of Systems Constitutional: reports: Weakness Eyes: reports: No Symptoms HENT: reports: No Symptoms Neck: reports: No Symptoms Cardiovascular: reports: Chest Pain Respiratory: reports: No Symptoms Gastrointestinal: reports: Abdominal Pain, Constipation, Nausea Genitourinary: reports: No Symptoms Breasts: reports: No Symptoms Reported Musculoskeletal: reports: Muscle Weakness Integumentary: reports: No Symptoms Neurological: reports: No Symptoms Endocrine: reports: No Symptoms Hematology/Lymphatic: reports: No Symptoms Psychiatric: reports: No Symptoms Physical Examination Vital Signs: Vital Signs Temperature 98.4 F 09/07/18 13:20 Pulse Rate 87 09/07/18 13:20 Respiratory Rate 17 09/07/18 13:20 Blood Pressure 142/55 L 09/07/18 13:20 O2 Sat by Pulse Oximetry (%) 98 09/07/18 13:20 Constitutional: Yes: No Distress, Calm, Cachectic Eyes: Yes: Conjunctiva Clear HENT: Yes: Atraumatic Neck: Yes: Supple Cardiovascular: Yes: Regular Rate and Rhythm Respiratory: Yes: Regular, CTA Bilaterally Gastrointestinal: Yes: Normal Bowel Sounds, Soft, Tenderness (diffuse) Musculoskeletal: Yes: Muscle Weakness Extremities: Yes: WNL Edema: No Neurological: Yes: Alert, Pre-Existing Deficit Psychiatric: Yes: Alert Labs: CBC, BMP 09/07/18 11:15 09/07/18 11:15 Imaging - Results Chest X-ray: Report Reviewed Problem List - Problems (1) Sepsis Assessment/Plan: -UC and BC pending -nno leukocytosis -LA 1.1 -currently afebrile -UA show 3+ blood, 1+ leukocyte esterase, WBC 19 Code(s): A41.9 - SEPSIS, UNSPECIFIED ORGANISM Qualifiers: Sepsis type: sepsis due to unspecified organism Qualified Code(s): A41.9 - Sepsis, unspecified organism (2) EDI (acute kidney injury) Assessment/Plan: -BUN/Cr 44/1.3 -monitor renal function daily -if worsen will consult renal Code(s): N17.9 - ACUTE KIDNEY FAILURE, UNSPECIFIED (3) Aortic dissection Code(s): I71.00 - DISSECTION OF UNSPECIFIED SITE OF AORTA (4) BPH (benign prostatic hyperplasia) Assessment/Plan: -continue Finasteride and Tamsulosin Code(s): N40.0 - BENIGN PROSTATIC HYPERPLASIA WITHOUT LOWER URINRY TRACT SYMP (5) HTN (hypertension) Assessment/Plan: -continue metoprolol Code(s): I10 - ESSENTIAL (PRIMARY) HYPERTENSION (6) UTI (urinary tract infection) Assessment/Plan: -UC pending -no leukocytosis -LA 1.1 -currently afebrile -UA show 3+ blood, 1+ leukocyte esterase, WBC 19 Code(s): N39.0 - URINARY TRACT INFECTION, SITE NOT SPECIFIED (7) Anemia Assessment/Plan: -monitor Hg daily -continue Folic Acid -transfuse for Hg <8.0 Code(s): D64.9 - ANEMIA, UNSPECIFIED Assessment/Plan see problem list dvt ppx
[2018-09-07] MEDS: INSULIN SLIDING SCALE (NOVOLOG) 1 VIAL SQ SCH ×2 (17:33→21:06)
[2018-09-07] MEDS: HEPARIN NA (PORCINE) 5,000 UNITS/ML 1ML VIAL SQ SCH (21:06)
[2018-09-07] MEDS: METOPROLOL TARTRATE 25 MG TABLET (FP) PO SCH (21:07)
[2018-09-08] MEDS: INSULIN SLIDING SCALE (NOVOLOG) 1 VIAL SQ SCH ×2 (06:31→11:23)
[2018-09-08 06:32] LABS: BASO % 0.6 % (0-2.0); EOS % 3.3 % (0-4.5); HEMATOCRIT 25.8 % (35.4-49); HEMOGLOBIN 8.7 GM/dL (11.7-16.9); LYMPH % 29.3 % (8-40); MCH 28.8 pg (25.7-33.7); MCHC 33.5 g/dl (32.0-35.9); MEAN PLT VOLUME 8.4 fl (7.5-11.1); MONO % 9.1 % (3.8-10.2); NEUT % 57.7 % (42.8-82.8); PLATELET COUNT 210 K/MM3 (134-434); RBC 3.01 M/mm3 (4.00-5.60); RDW 15.2 % (11.9-15.9); WHITE BLOOD COUNT 4.9 K/mm3 (4.0-10.0)
[2018-09-08 07:11] LABS: ANION GAP 7 MMOL/L (8-16); BLOOD UREA NITROGEN 36 mg/dL (7-18); CALCIUM 7.7 mg/dL (8.5-10.1); CHLORIDE 106 mmol/L (98-107); CO2 27 mmol/L (21-32); CREATININE 1.2 mg/dL (0.55-1.3); GLUCOSE,RANDOM 87 mg/dL (74-106); MAGNESIUM 1.6 mg/dL (1.8-2.4); PHOSPHOROUS 2.9 mg/dL (2.5-4.9); POTASSIUM 4.1 mmol/L (3.5-5.1); SODIUM 140 mmol/L (136-145)
[2018-09-08] MEDS: TAMSULOSIN HCL 0.4 MG CAP PO SCH (08:41)
[2018-09-08] MEDS: PANTOPRAZOLE 40 MG TABLET (FP) PO SCH (10:05)
[2018-09-08] MEDS: ASPIRIN COATED 81 MG TABLET.EC PO SCH (10:05)
[2018-09-08] MEDS: FOLIC ACID 1 MG TABLET (FP) PO SCH (10:05)
[2018-09-08] MEDS: DOCUSATE SODIUM 100 MG CAPSULE (FP) PO SCH (10:05)
[2018-09-08] MEDS: FINASTERIDE 5 MG TABLET (FP) PO SCH (10:06)
[2018-09-08] MEDS: HEPARIN NA (PORCINE) 5,000 UNITS/ML 1ML VIAL SQ SCH ×2 (10:06→21:14)
[2018-09-08] MEDS: CHOLECALCIFEROL (VITAMIN D3) 1,000 UNIT TABLET (FP) PO SCH (10:06)
[2018-09-08] MEDS: METOPROLOL TARTRATE 25 MG TABLET (FP) PO SCH ×3 (11:24→21:14)
--- NOTE | 2018-09-08 11:41 | PN ---
Progress Note, Physician Chief Complaint: Chest pain History of Present Illness: NAD in bed denies any pain BC + for gram+ cocci in clusters Microbiology 09/07/18 11:15 Blood - Peripheral Venous Blood Culture - Preliminary NO GROWTH OBTAINED AFTER 24 HOURS, INCUBATION TO CONTINUE FOR 4 DAYS. 09/07/18 11:20 Blood - Peripheral Venous Blood Culture - Preliminary Pending Organism 09/07/18 11:40 Urine - Urine - Catheterized Urine Culture - Final NO GROWTH OBTAINED febrile upon admission Lactic acid normal had outpt wbc scan to r/o other foci of fungemia- 09/01- which showed right submandibular uptake Pt denies any discomfort in the area, no pain on exam. Has dental caps upper and lower. - Current Medication List Current Medications: Active Medications Acetaminophen (Tylenol -) 650 mg PO Q4H PRN PRN Reason: FEVER Aspirin (Ecotrin -) 81 mg PO DAILY [facility] Last Admin: 09/08/18 10:05 Dose: 81 mg Cholecalciferol (Vitamin D3 -) 2,000 unit PO DAILY [facility] Last Admin: 09/08/18 10:06 Dose: 2,000 unit Docusate Sodium (Colace -) 200 mg PO DAILY [facility] Last Admin: 09/08/18 10:05 Dose: 200 mg Donepezil HCl (Aricept -) 5 mg PO [facility] Finasteride (Proscar -) 5 mg PO DAILY [facility] Last Admin: 09/08/18 10:06 Dose: 5 mg Folic Acid (Folic Acid -) 1 mg PO DAILY [facility] Last Admin: 09/08/18 10:05 Dose: 1 mg Heparin Sodium (Porcine) (Heparin -) 5,000 unit SQ BID [facility] Last Admin: 09/08/18 10:06 Dose: 5,000 unit Insulin Aspart (Novolog Vial Sliding Scale -) 1 vial SQ ACHS [facility]; Protocol Last Admin: 09/08/18 11:23 Dose: Not Given Metoprolol Tartrate (Lopressor -) 12.5 mg PO BID [facility] Last Admin: 09/08/18 11:24 Dose: 12.5 mg Pantoprazole Sodium (Protonix -) 40 mg PO DAILY [facility] Last Admin: 09/08/18 10:05 Dose: 40 mg Tamsulosin HCl (Flomax -) 0.4 mg PO DAILY@0830 [facility] Last Admin: 09/08/18 08:41 Dose: 0.4 mg - Objective Vital Signs: Vital Signs Temperature 99.3 F 09/08/18 09:53 Pulse Rate 95 H 09/08/18 09:53 Respiratory Rate 20 09/08/18 09:53 Blood Pressure 100/48 L 09/08/18 09:53 O2 Sat by Pulse Oximetry (%) 98 09/07/18 21:47 Constitutional: Yes: No Distress, Calm, Cachectic Cardiovascular: Yes: Regular Rate and Rhythm Respiratory: Yes: Regular Gastrointestinal: Yes: Normal Bowel Sounds, Soft Genitourinary: Yes: Vazquez Present Musculoskeletal: Yes: Muscle Weakness Extremities: Yes: WNL Edema: No Peripheral Pulses WNL: Yes Integumentary: Yes: Pressure Ulcer (sacral stage 2) Wound/Incision: Yes: Dressing Dry and Intact Neurological: Yes: Alert, Oriented Psychiatric: Yes: Alert, Oriented Labs: CBC, BMP 09/08/18 05:30 09/08/18 05:30 INR, PTT INR 1.28 (0.83-1.09) H 09/07/18 11:15 Problem List - Problems (1) BPH (benign prostatic hyperplasia) Assessment/Plan: -Chronic vazquez -On tamsulosin 0.4 mg po daily Code(s): N40.0 - BENIGN PROSTATIC HYPERPLASIA WITHOUT LOWER URINRY TRACT SYMP (2) Sepsis Assessment/Plan: -BC final pending, UC negative -ID on board -IV abx -acetaminophen for fever >100.0F -Gentle IVF -CT soft tissue neck with and without contrast tomorrow Code(s): A41.9 - SEPSIS, UNSPECIFIED ORGANISM Qualifiers: Sepsis type: sepsis due to unspecified organism Qualified Code(s): A41.9 - Sepsis, unspecified organism (3) Anemia Assessment/Plan: -Last Anemia work up in 08/17 -Stool ob was negative -Fe % was borderline at 15-monitor trend -Normal B12 and thyroid Code(s): D64.9 - ANEMIA, UNSPECIFIED (4) CKD (chronic kidney disease) Assessment/Plan: -Baseline Cr at 1.1 -Gentle IVF for 24 hours Code(s): N18.9 - CHRONIC KIDNEY DISEASE, UNSPECIFIED Assessment/Plan See problem list D/C BGM, pt is not a diabetic physical therapy
--- NOTE | 2018-09-08 11:45 | PN ---
Progress Note (short form) - Note Progress Note: ID consult dictated 88 yo man with recent admission 08/06 to 08/17 for fever, mia bacteremia- did well with caspofungin and switched to po diflucan which was d/mauro on 09/06 after indium scan results were available he had outpt wbc scan to r/o other foci of infection- 09/01- there is right submandibular uptake??-consider ct scan of his neck to evaluate ct abd/pelvis with contrast was negative in July he has a type B aortic dissection with plans for future repair- currently BP control now with positive blood culture! received vanco/zosyn yesterday has chronic vazquez as well (urine culture is negative) will repeat blood cultures and continue vancomycin until blood cultures are back bacteremia abnormal indium scan with uptake right neck recent mia blood stream infection type B aortic dissection HTN d/w hospitalist Problem List - Problems (1) Bacteremia Code(s): R78.81 - BACTEREMIA (2) Abnormal radionuclide scan Code(s): R94.8 - ABNORMAL RESULTS OF FUNCTION STUDIES OF ORGANS AND SYSTEMS (3) Aortic dissection Code(s): I71.00 - DISSECTION OF UNSPECIFIED SITE OF AORTA
[2018-09-08] MEDS ORDERED: VANCOMYCIN 1,000 MG in DEXTROSE 5%-WATER - 250 ML IVPB ONE (11:53)
[2018-09-08] MEDS ORDERED: VANCOMYCIN 1 GM PREMIX - 1 GM/200 ML BAG IVPB ONE (11:58)
[2018-09-08] MEDS ORDERED: SODIUM CHLORIDE 1,000 ML IV SCH (12:45)
--- NOTE | 2018-09-08 14:54 | CON.CARD ---
Consult Consult Specialty:: Cardiology Referred by:: Reynaldo Lynch Reason for Consultation:: Palpitations - History of Present Illness Chief Complaint: Palpitations History of Present Illness: 88 year old male from [facility], with a pmhx of htn, hld, KOREY, gerd, colon CA s/ p resection, bph, hernia, and migraine with h/o descending aortic dissection with plan for possible intervention after treatment with antifungal. He presents with as per chart chest pain. When I spoke to patient he denies chest pain. Says he felt some irregular heart beats but no chest pain. Symptoms lasted minutes and than resolved. Denies any chest pain, sob, or palpitations since presentation. 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 Cardio/Vascular: Yes: AFIB, HTN, Hyperlipdemia Gastrointestinal: Yes: Cancer (Colon), GERD, Other (Hernia) Renal/: Yes: BPH - Alcohol/Substance Use Hx Alcohol Use: No History of Substance Use: reports: None - Smoking History Smoking history: Former smoker Have you smoked in the past 12 months: No Aproximately how many cigarettes per day: 0 - Social History ADL: Support Services History of Recent Travel: No Home Medications - Allergies Allergies/Adverse Reactions: Allergies Allergy/AdvReac Type Severity Reaction Status Date / Time No Known Drug Allergies Allergy Verified 09/07/18 10:09 - Home Medications Home Medications: Ambulatory Orders Aa/Hydrolyzed Collagen, Whey [Lps Neutral Flavor Liquid] 30 ml PO BID 09/07/18 Acetaminophen 650 mg PO Q6H 09/07/18 Aspirin [ASA -] 81 mg PO DAILY 09/07/18 Bismuth Tribromoph/Petrolatum [Xeroform Petrolatum Dress] 1 each TP DAILY Cholecalciferol (Vitamin D3) [Vitamin D3] 2,000 unit PO DAILY 09/07/18 Docusate Sodium [Colace] 200 mg PO HS 09/07/18 Donepezil HCl [Aricept -] 5 mg PO HS 09/07/18 Finasteride 5 mg PO HS 09/07/18 Folic Acid - 1 mg PO DAILY 09/07/18 Metoprolol Tartrate 25 mg PO BID 09/07/18 Omeprazole 40 mg PO DAILY 09/07/18 Simvastatin 40 mg PO HS 09/07/18 Tamsulosin HCl 0.4 mg PO HS 09/07/18 Vital Signs: Vital Signs Temperature 99.6 F 09/08/18 14:00 Pulse Rate 85 09/08/18 14:00 Respiratory Rate 20 09/08/18 14:00 Blood Pressure 108/51 L 09/08/18 14:00 O2 Sat by Pulse Oximetry (%) 95 09/08/18 09:00 Constitutional: Yes: No Distress Neck: Yes: Supple Respiratory: Yes: CTA Bilaterally Gastrointestinal: Yes: Soft Cardiovascular: Yes: Regular Rate and Rhythm JVD: No Carotid Bruit: No PMI: Non-Displaced Heart Sounds: Yes: S1, S2 Murmur: No: Systolic Murmur Edema: No - Other Data Labs, Other Data: CBC, BMP 09/08/18 05:30 09/08/18 05:30 INR, PTT INR 1.28 (0.83-1.09) H 09/07/18 11:15 Troponin, BNP 09/08/18 05:30 Troponin I < 0.02 Troponin, BNP 09/08/18 05:30 Troponin I < 0.02 Imaging - Results Chest X-ray: Report Reviewed EKG: Image Reviewed Assessment/Plan 88 year old male from [facility], with a pmhx of htn, hld, KOREY, gerd, colon CA s/ p resection, bph, hernia, and migraine with h/o descending aortic dissection with plan for possible intervention after treatment with antifungal. He presents with as per chart chest pain. When I spoke to patient he denies chest pain. Says he felt some irregular heart beats but no chest pain. Symptoms lasted minutes and than resolved. Denies any chest pain, sob, or palpitations since presentation. Echocardiogram 08/10/18: normal LV size, wall motion and systolic function, mild lad, no significant valve disease CXR: no chf or pna EKG: sinus rhythm at 98bpm, nl axis, nl st segments +Bld Cx and +UA with leukocytes 1) Cardiac -No ekg changes. Negative cardiac enzymes. Echo last month unremarkable -Atypical symptoms -Will plan to monitor on telemetry for any arrhythmias. Dehydrated on labs and receiving IVF's F/u with ID regarding need for Abx and results of his Bld Cultures No further cardiac testing at this time.
--- NOTE | 2018-09-08 16:19 | CONSULT ---
Consultation: REQUESTING PROVIDER: CONSULT REQUEST: We have been asked to medically evaluate this patient for Hematology. HISTORY OF PRESENT ILLNESS: 88 y/o M w/PMH of aortic dissection (type B), CAD s/p stent, metastatic colon ca s/p resection, HTN, HLD, BPH, DM, GERD, migraine HALL, dysphagia presented to the ER from [facility] for "funny feeling in chest". He reports feeling like he had extra beats in his heart and he was rushed to the hospital. He denies any CP , SOB, pain radiating from chest to other parts of body, N/V/F/C. He reports feeling some L rib pain after lifting something at the SC but otherwise no other complaints at this time. He reports he requires help with his ADLs at the SC and does not ambulate. In ER he was found to have a positive UA and a fever and 1/2 BCx tubes positive so far. Also found to be anemic on labs. PMH:aortic dissection (type B), CAD s/p stent, metastatic colon ca s/p resection , HTN, HLD, BPH, DM, GERD, migraine HALL, dysphagia SH: Former smoker Allergies: NKDA Home Medication List Medication Instructions Recorded Confirmed Type Aa/Hydrolyzed Collagen, Whey [Lps 30 ml PO BID 09/07/18 09/07/18 History Neutral Flavor Liquid] Acetaminophen 650 mg PO Q6H 09/07/18 09/07/18 History Aspirin [ASA -] 81 mg PO DAILY 09/07/18 09/07/18 History Bismuth Tribromoph/Petrolatum 1 each TP DAILY 09/07/18 09/07/18 History [Xeroform Petrolatum Dress] Cholecalciferol (Vitamin D3) 2,000 unit PO DAILY 09/07/18 09/07/18 History [Vitamin D3] Docusate Sodium [Colace] 200 mg PO HS 09/07/18 09/07/18 History Donepezil HCl [Aricept -] 5 mg PO HS 09/07/18 09/07/18 History Finasteride 5 mg PO HS 09/07/18 09/07/18 History Folic Acid - 1 mg PO DAILY 09/07/18 09/07/18 History Metoprolol Tartrate 25 mg PO BID 09/07/18 09/07/18 History Omeprazole 40 mg PO DAILY 09/07/18 09/07/18 History Simvastatin 40 mg PO HS 09/07/18 09/07/18 History Tamsulosin HCl 0.4 mg PO HS 09/07/18 09/07/18 History REVIEW OF SYSTEMS: CONSTITUTIONAL: Absent: fever, chills CARDIOVASCULAR: +Extra beats Absent: chest pain, peripheral edema RESPIRATORY: Absent: cough, shortness of breath GASTROINTESTINAL: Absent: abdominal pain,nausea, vomiting GENITOURINARY: Absent: dysuria NEUROLOGIC: Absent: headache PHYSICAL EXAMINATION Vital Signs - 24 hr 09/07/18 09/07/18 09/07/18 17:01 20:39 21:00 Temperature 97.9 F 98.2 F Pulse Rate 84 Pulse Rate [ 75 Apical] Respiratory 20 20 20 Rate Blood Pressure 144/62 Blood Pressure 124/56 L [Right Arm] O2 Sat by Pulse 99 98 Oximetry (%) 09/07/18 09/07/18 09/08/18 21:47 22:00 01:49 Temperature 98.3 F 98.3 F Pulse Rate 80 80 Pulse Rate [ Apical] Respiratory 20 18 18 Rate Blood Pressure 138/76 149/64 Blood Pressure [Right Arm] O2 Sat by Pulse 98 Oximetry (%) 09/08/18 09/08/18 09/08/18 06:00 09:00 09:53 Temperature 98.8 F 99.3 F Pulse Rate 80 95 H Pulse Rate [ Apical] Respiratory 18 20 Rate Blood Pressure 131/59 L 100/48 L Blood Pressure [Right Arm] O2 Sat by Pulse 95 Oximetry (%) 09/08/18 14:00 Temperature 99.6 F Pulse Rate 85 Pulse Rate [ Apical] Respiratory 20 Rate Blood Pressure 108/51 L Blood Pressure [Right Arm] O2 Sat by Pulse Oximetry (%) GENERAL: Awake, alert, and fully oriented, in no acute distress. EYES: extraocular movements intact, sclera anicteric EARS, NOSE, THROAT: Ears normal, nares patent LUNGS: Breath sounds equal, clear to auscultation bilaterally. HEART: Regular rate and rhythm, normal S1 and S2 ABDOMEN: Soft, nontender, normoactive bowel sounds LOWER EXTREMITIES: warm, well-perfused. No peripheral edema. NEUROLOGICAL: Normal speech. Gait not observed. PSYCHIATRIC: Cooperative. Good eye contact. SKIN: Warm, dry Laboratory Results - last 24 hr 0409/07/18 09/08/18 17:26 21:05 05:30 WBC 4.9 RBC 3.01 L Hgb 8.7 L Hct 25.8 L MCV 86.0 MCH 28.8 MCHC 33.5 RDW 15.2 Plt Count 210 MPV 8.4 Absolute Neuts (auto) 2.8 Neutrophils % 57.7 Lymphocytes % 29.3 D Monocytes % 9.1 Eosinophils % 3.3 D Basophils % 0.6 Nucleated RBC % 0 Sodium Potassium Chloride Carbon Dioxide Anion Gap BUN Creatinine Creat Clearance w eGFR POC Glucometer 106 146 Random Glucose Calcium Phosphorus Magnesium Troponin I TSH 09/08/18 09/08/18 09/08/18 05:30 05:40 11:00 WBC RBC Hgb Hct MCV MCH MCHC RDW Plt Count MPV Absolute Neuts (auto) Neutrophils % Lymphocytes % Monocytes % Eosinophils % Basophils % Nucleated RBC % Sodium 140 Potassium 4.1 Chloride 106 Carbon Dioxide 27 Anion Gap 7 L BUN 36 H Creatinine 1.2 Creat Clearance w eGFR 57.14 POC Glucometer 89 117 Random Glucose 87 Calcium 7.7 L Phosphorus 2.9 Magnesium 1.6 L Troponin I < 0.02 TSH 2.34 D Active Medications Generic Name Dose Route Start Last Admin Trade Name Freq PRN Reason Stop Dose Admin Acetaminophen 650 mg 09/07/18 13:57 Tylenol - PO Q4H PRN FEVER Aspirin 81 mg 09/08/18 10:00 09/08/18 10:05 Ecotrin - PO 81 mg DAILY SUAD Administration Cholecalciferol 2,000 unit 09/08/18 10:00 09/08/18 10:06 Vitamin D3 - PO 2,000 unit DAILY SUAD Administration Docusate Sodium 200 mg 09/08/18 10:00 09/08/18 10:05 Colace - PO 200 mg DAILY SUAD Administration Donepezil HCl 5 mg 09/08/18 22:00 Aricept - PO HS SUAD Finasteride 5 mg 09/08/18 10:00 09/08/18 10:06 Proscar - PO 5 mg DAILY SUAD Administration Folic Acid 1 mg 09/08/18 10:00 09/08/18 10:05 Folic Acid - PO 1 mg DAILY SUAD Administration Heparin Sodium (Porcine) 5,000 unit 09/07/18 22:00 09/08/18 10:06 Heparin - SQ 5,000 unit BID SUAD Administration Sodium Chloride 1,000 mls @ 50 mls/hr 09/08/18 12:45 09/08/18 13:34 Normal Saline - IV 09/09/18 12:36 50 mls/hr ASDIR SUAD Administration Metoprolol Tartrate 12.5 mg 09/08/18 10:45 09/08/18 11:24 Lopressor - PO 12.5 mg BID SUAD Administration Pantoprazole Sodium 40 mg 09/08/18 10:00 09/08/18 10:05 Protonix - PO 40 mg DAILY SUAD Administration Tamsulosin HCl 0.4 mg 09/08/18 08:30 09/08/18 08:41 Flomax - PO 0.4 mg DAILY@0830 SUAD Administration ASSESSMENT/PLAN: 88 y/o M w/PMH of aortic dissection (type B), CAD s/p stent, metastatic colon ca s/p resection, HTN, HLD, BPH, DM, GERD, migraine HALL, dysphagia presented to the ER from [facility] for "funny feeling in chest". Found to be anemic on labs and positive UA and 1/2 BCx positive. -Normocytic anemia -No signs of gross bleeding currently -TSH nl -Will check Iron studies, B12, Folate, FOBT, Retic count, LDH -Continue to monitor CBC Dispo: We will continue to follow the patient. Thank you for this consultative opportunity. Visit type - Emergency Visit Emergency Visit: Yes ED Registration Date: 09/07/18 Care time: The patient presented to the Emergency Department on the above date and was hospitalized for further evaluation of their emergent condition. - New Patient This patient is new to me today: Yes Date on this admission: 09/08/18 - Critical Care Critical Care patient: No
--- NOTE | 2018-09-08 16:56 | PN ---
Teaching Attending Note Name of Resident: Jj Kitchen ATTENDING PHYSICIAN STATEMENT I saw and evaluated the patient. I reviewed the resident's note and discussed the case with the resident. I agree with the resident's findings and plan as documented. SUBJECTIVE: Patient seen and examined Complicated case- recent fungal bacteremia - treated. Recent abnormal Indium scan Positive cultures History of type B aortic dissection - in need of surgical repair Presents with atypical type chest pains Noted to have NC/NC anemia Last Vital Signs Temp Pulse Resp BP Pulse Ox 99.6 F 85 20 108/51 L 95 09/08/18 14:00 09/08/18 14:00 09/08/18 14:00 09/08/18 14:00 09/08/18 09:00 HEENT: [place], EOM Intact Oropharynx: No thrush, No mucositis Neck: Supple Nodes: Without adenopathy Cor: RSR, No murmurs, No gallops Lungs: Clear to P&A Abd: Soft, Normal bowel sounds, No organomegaly, Guerra catheter Circumcised, testes descended Ext:No significant edema Skin: No rashes, Integument intact CBC, BMP 09/08/18 05:30 09/08/18 05:30 Current Medications Generic Name Dose Route Start Last Admin Trade Name Freq PRN Reason Stop Dose Admin Acetaminophen 650 mg 09/07/18 13:57 Tylenol - PO Q4H PRN FEVER Aspirin 81 mg 09/08/18 10:00 09/08/18 10:05 Ecotrin - PO 81 mg DAILY SUAD Administration Cholecalciferol 2,000 unit 09/08/18 10:00 09/08/18 10:06 Vitamin D3 - PO 2,000 unit DAILY SUAD Administration Docusate Sodium 200 mg 09/08/18 10:00 09/08/18 10:05 Colace - PO 200 mg DAILY SUAD Administration Donepezil HCl 5 mg 09/08/18 22:00 Aricept - PO HS SUAD Finasteride 5 mg 09/08/18 10:00 09/08/18 10:06 Proscar - PO 5 mg DAILY SUAD Administration Folic Acid 1 mg 09/08/18 10:00 09/08/18 10:05 Folic Acid - PO 1 mg DAILY SUAD Administration Heparin Sodium (Porcine) 5,000 unit 09/07/18 22:00 09/08/18 10:06 Heparin - SQ 5,000 unit BID SUAD Administration Sodium Chloride 1,000 mls @ 50 mls/hr 09/08/18 12:45 09/08/18 13:34 Normal Saline - IV 09/09/18 12:36 50 mls/hr ASDIR SUAD Administration Metoprolol Tartrate 12.5 mg 09/08/18 10:45 09/08/18 11:24 Lopressor - PO 12.5 mg BID SUAD Administration Pantoprazole Sodium 40 mg 09/08/18 10:00 09/08/18 10:05 Protonix - PO 40 mg DAILY SUAD Administration Tamsulosin HCl 0.4 mg 09/08/18 08:30 09/08/18 08:41 Flomax - PO 0.4 mg DAILY@0830 SUAD Administration Impression: Bacteremia past history of fungal bacteremia Abnormal Indium scan NC/NC anemia 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 For screening test To monitor . OBJECTIVE: ASSESSMENT AND PLAN:
--- NOTE | 2018-09-08 20:41 | CONS ---
DATE OF CONSULTATION: DATE OF DICTATION: 06/10/2018 INFECTIOUS DISEASE CONSULTATION HISTORY OF PRESENT ILLNESS: This is an 88-year-old man who I know from his previous admission from August 06 to August 17, at which time he was admitted from the [facility] with high-grade fever. He had had some manipulation of his Guerra prior to that admission, and was admitted with hematuria and urinary retention. He was found to have nu albicans in his blood and was treated with caspofungin. He had an echo that was negative for vegetation. He was seen in consultation by ophthalmology with no evidence of any fungal endophthalmitis. He had a chest CT of his abdomen and pelvis done with IV contrast that was notable for a type B aortic dissection. There was no evidence of any focal liver masses and he has multiple renal cysts, and otherwise it was unremarkable. He did well. His blood cultures grew Nu albicans. He did well on the caspofungin with resolution of his fever. Repeat blood cultures were negative on the and , and he was discharged on a course of Diflucan. Plan was to do an outpatient indium scan, which he subsequently had on the 01 of September, and it was read on the . Until the indium scan was read, he was continued on oral Diflucan per my conversation with Dr. Lynch, who was taking care of him at the [facility]. The outpatient indium scan showed intense uptake in the area of the right submandibular gland and it showed uptake in the left hemipelvis, was unclear whether this was colon or iliac bone. The Diflucan was just stopped on the . He was sent to the emergency room on the when he complained of chest discomfort, and he was found to have a rectal temperature of 100.3. He was given vancomycin and Zosyn IV after cultures were drawn. He had a chest x-ray done in the emergency room that showed no acute chest pathology. Currently I am asked to see him for further management, and blood cultures 1 of 4 bottles is now growing gram positive cocci in clusters. He is awake and alert and has no complaints. PAST MEDICAL HISTORY: Notable for history of hypertension. There is type B aortic dissection, coronary artery disease status post stent, metastatic colon cancer with resection, hyperlipidemia, BPH, diabetes, GERD, hernia. He has a history of migraine headache and dysphagias. SURGICAL HISTORY: Notable for colon resection. SOCIAL HISTORY: He is a former smoker. There is no history of any substance use. Currently resides at the [facility]. ALLERGIES: No known drug allergies. MEDICATION: Include tamsulosin, simvastatin, omeprazole, metoprolol, folic acid , finasteride, Aricept, Colace, vitamin D, aspirin. REVIEW OF SYSTEMS: He reports his chest discomfort has resolved. He has no other complaints. He denies any diarrhea and he has a chronic Guerra. PHYSICAL EXAMINATION: VITAL SIGNS: Temperature 99.3, pulse 95, blood pressure 100/48, respiratory rate 20, he is saturating 95% on room air. HEENT: Normocephalic. Eyes are anicteric. NECK: Supple. LUNGS: Clear to auscultation. HEART: Regular rate and rhythm. ABDOMEN: Soft, nontender. He has a Guerra catheter in place. EXTREMITIES: Without edema. SKIN: No skin rash. LABORATORY: Notable for a white count of 4.9, hemoglobin 11.7, platelets of 210 , BUN and creatinine are 36 and 1.2. He has 1 of 4 blood cultures gram-positive cocci in clusters. Urine culture is no growth. IMPRESSION: In summary, this is an 88-year-old man with bacteremia, abnormal indium scan with uptake in his right neck. Recent nu blood stream infection, type B aortic dissection, hypertension. Repeat blood cultures at this time and continue vancomycin until blood cultures are back. Would consider CAT scan imaging of the neck to follow up the indium scan finding. Further recommendations to follow. Case was discussed at length with the hospitalist. PETER MARSHALL M.D. [id number] MTDD
[2018-09-08] MEDS: DONEPEZIL HCL 5 MG TABLET (FP) PO SCH (21:14)
[2018-09-09 07:00] LABS: HEMATOCRIT 25.2 % (35.4-49); HEMOGLOBIN 8.3 GM/dL (11.7-16.9); MCH 28.8 pg (25.7-33.7); MEAN CELL VOLUME 87.1 fl (80-96); MEAN PLT VOLUME 8.6 fl (7.5-11.1); PLATELET COUNT 200 K/MM3 (134-434); RBC 2.89 M/mm3 (4.00-5.60); RDW 15.5 % (11.9-15.9); WHITE BLOOD COUNT 5.1 K/mm3 (4.0-10.0)
[2018-09-09 08:17] LABS: ALBUMIN 1.6 g/dl (3.4-5.0); ALK PHOS 63 U/L (45-117); ANION GAP 5 MMOL/L (8-16); BILIRUBIN,TOTAL 0.2 mg/dL (0.2-1); BLOOD UREA NITROGEN 32 mg/dL (7-18); CALCIUM 7.8 mg/dL (8.5-10.1); CHLORIDE 105 mmol/L (98-107); CO2 25 mmol/L (21-32); GLUCOSE,RANDOM 90 mg/dL (74-106); LDH 352 U/L (87-246); POTASSIUM 4.4 mmol/L (3.5-5.1); SGOT/AST 154 U/L (15-37); SGPT/ALT 51 U/L (13-61); SODIUM 135 mmol/L (136-145); TOT PROT 5.1 g/dl (6.4-8.2)
[2018-09-09] MEDS: FINASTERIDE 5 MG TABLET (FP) PO SCH (10:03)
[2018-09-09] MEDS: CHOLECALCIFEROL (VITAMIN D3) 1,000 UNIT TABLET (FP) PO SCH (10:03)
[2018-09-09] MEDS: METOPROLOL TARTRATE 25 MG TABLET (FP) PO SCH ×2 (10:04→22:33)
[2018-09-09] MEDS: PANTOPRAZOLE 40 MG TABLET (FP) PO SCH (10:04)
[2018-09-09] MEDS: TAMSULOSIN HCL 0.4 MG CAP PO SCH (10:04)
[2018-09-09] MEDS: FOLIC ACID 1 MG TABLET (FP) PO SCH (10:04)
[2018-09-09] MEDS: ASPIRIN COATED 81 MG TABLET.EC PO SCH (10:04)
[2018-09-09] MEDS: HEPARIN NA (PORCINE) 5,000 UNITS/ML 1ML VIAL SQ SCH ×2 (10:05→22:33)
[2018-09-09] MEDS: DOCUSATE SODIUM 100 MG CAPSULE (FP) PO SCH (10:05)
[2018-09-09 10:57] LABS: ANISOCYTOSIS 1+; MACROCYTOSIS 0; OVALOCYTE 1+; PLATELET ESTIMATE NORMAL
--- NOTE | 2018-09-09 11:54 | PN ---
Physical Exam: SUBJECTIVE: Patient seen and examined at bedside. Has a stiff neck from sleeping. No other complaints at this time. No more c/o extra beats. OBJECTIVE: Vital Signs Temperature 98.8 F 09/09/18 08:19 Pulse Rate 80 09/09/18 08:19 Respiratory Rate 20 09/09/18 08:19 Blood Pressure 114/52 L 09/09/18 08:19 O2 Sat by Pulse Oximetry (%) 98 09/09/18 08:19 GENERAL: Awake, alert, and fully oriented, in no acute distress. EYES: extraocular movements intact, sclera anicteric EARS, NOSE, THROAT: Ears normal, nares patent LUNGS: Breath sounds equal, clear to auscultation bilaterally. HEART: Regular rate and rhythm, normal S1 and S2 ABDOMEN: Soft, nontender, normoactive bowel sounds LOWER EXTREMITIES: warm, well-perfused. No peripheral edema. NEUROLOGICAL: Normal speech. Gait not observed. PSYCHIATRIC: Cooperative. Good eye contact. SKIN: Warm, dry Laboratory Results - last 24 hr 09/09/18 09/09/18 09/09/18 05:30 05:30 05:30 WBC 5.1 RBC 2.89 L Hgb 8.3 L Hct 25.2 L MCV 87.1 MCH 28.8 MCHC 33.0 RDW 15.5 Plt Count 200 MPV 8.6 Absolute Neuts (auto) 1.3 L Neutrophils % No Result Required. Neutrophils % (Manual) 63.0 Band Neutrophils % 0.0 Lymphocytes % No Result Required. Lymphocytes % (Manual) 22.0 Monocytes % (Manual) 11 H Eosinophils % (Manual) 1.0 Basophils % (Manual) 0.0 Myelocytes % (Man) 0 Promyelocytes % (Man) 0 Blast Cells % (Manual) 0 Nucleated RBC % 0 Metamyelocytes 0 Hypochromia 0 Platelet Estimate Normal Polychromasia 1+ Poikilocytosis 1+ Anisocytosis 1+ Microcytosis 1+ Macrocytosis 0 Ovalocytes 1+ Retic Count Sodium 135 L Potassium 4.4 Chloride 105 Carbon Dioxide 25 Anion Gap 5 L BUN 32 H Creatinine 1.0 Creat Clearance w eGFR 70.52 Random Glucose 90 Calcium 7.8 L Ferritin Total Bilirubin 0.2 AST 154 H ALT 51 Alkaline Phosphatase 63 LD Total 352 H Total Protein 5.1 L Albumin 1.6 L Vitamin B12 442 Serum Folate 25 H Random Vancomycin 12.0 L 09/09/18 09/09/18 05:30 05:30 WBC RBC Hgb Hct MCV MCH MCHC RDW Plt Count MPV Absolute Neuts (auto) Neutrophils % Neutrophils % (Manual) Band Neutrophils % Lymphocytes % Lymphocytes % (Manual) Monocytes % (Manual) Eosinophils % (Manual) Basophils % (Manual) Myelocytes % (Man) Promyelocytes % (Man) Blast Cells % (Manual) Nucleated RBC % Metamyelocytes Hypochromia Platelet Estimate Polychromasia Poikilocytosis Anisocytosis Microcytosis Macrocytosis Ovalocytes Retic Count 0.75 Sodium Potassium Chloride Carbon Dioxide Anion Gap BUN Creatinine Creat Clearance w eGFR Random Glucose Calcium Ferritin 1279.7 H Total Bilirubin AST ALT Alkaline Phosphatase LD Total Total Protein Albumin Vitamin B12 Serum Folate Random Vancomycin Active Medications Generic Name Dose Route Start Last Admin Trade Name Freq PRN Reason Stop Dose Admin Acetaminophen 650 mg 09/07/18 13:57 Tylenol - PO Q4H PRN FEVER Aspirin 81 mg 09/08/18 10:00 09/09/18 10:04 Ecotrin - PO 81 mg DAILY SUAD Administration Cholecalciferol 2,000 unit 09/08/18 10:00 09/09/18 10:03 Vitamin D3 - PO 2,000 unit DAILY SUAD Administration Docusate Sodium 200 mg 09/08/18 10:00 09/09/18 10:05 Colace - PO 200 mg DAILY SUAD Administration Donepezil HCl 5 mg 09/08/18 22:00 09/08/18 21:14 Aricept - PO 5 mg HS SUAD Administration Finasteride 5 mg 09/08/18 10:00 09/09/18 10:03 Proscar - PO 5 mg DAILY SUAD Administration Folic Acid 1 mg 09/08/18 10:00 09/09/18 10:04 Folic Acid - PO 1 mg DAILY SUAD Administration Heparin Sodium (Porcine) 5,000 unit 09/07/18 22:00 09/09/18 10:05 Heparin - SQ 5,000 unit BID SUAD Administration Sodium Chloride 1,000 mls @ 50 mls/hr 09/08/18 12:45 09/08/18 13:34 Normal Saline - IV 09/09/18 12:36 50 mls/hr ASDIR SUAD Administration Metoprolol Tartrate 12.5 mg 09/08/18 10:45 09/09/18 10:04 Lopressor - PO 12.5 mg BID SUAD Administration Pantoprazole Sodium 40 mg 09/08/18 10:00 09/09/18 10:04 Protonix - PO 40 mg DAILY SUAD Administration Tamsulosin HCl 0.4 mg 09/08/18 08:30 09/09/18 10:04 Flomax - PO 0.4 mg DAILY@0830 SUAD Administration ASSESSMENT/PLAN: 88 y/o M w/PMH of aortic dissection (type B), CAD s/p stent, metastatic colon ca s/p resection, HTN, HLD, BPH, DM, GERD, migraine HALL, dysphagia presented to the ER from [facility] for "funny feeling in chest". Found to be anemic on labs and positive UA and 1/2 BCx positive. -Normocytic anemia -No signs of gross bleeding currently -TSH nl -Retic count 0.75, Ferritin 1279, TIBC pending, LD 352, B12 442, Folate 25 -Awaiting further iron studies but likely anemia of chronic disease -Continue to monitor CBC Visit type - Emergency Visit Emergency Visit: Yes ED Registration Date: 09/07/18 Care time: The patient presented to the Emergency Department on the above date and was hospitalized for further evaluation of their emergent condition. - New Patient This patient is new to me today: No - Critical Care Critical Care patient: No
--- NOTE | 2018-09-09 12:45 | PN ---
Progress Note, Physician Chief Complaint: patient seen and examined in bed no distress - Current Medication List Current Medications: Active Medications Acetaminophen (Tylenol -) 650 mg PO Q4H PRN PRN Reason: FEVER Aspirin (Ecotrin -) 81 mg PO DAILY [facility] Last Admin: 09/09/18 10:04 Dose: 81 mg Cholecalciferol (Vitamin D3 -) 2,000 unit PO DAILY [facility] Last Admin: 09/09/18 10:03 Dose: 2,000 unit Docusate Sodium (Colace -) 200 mg PO DAILY [facility] Last Admin: 09/09/18 10:05 Dose: 200 mg Donepezil HCl (Aricept -) 5 mg PO HS [facility] Last Admin: 09/08/18 21:14 Dose: 5 mg Finasteride (Proscar -) 5 mg PO DAILY [facility] Last Admin: 09/09/18 10:03 Dose: 5 mg Folic Acid (Folic Acid -) 1 mg PO DAILY [facility] Last Admin: 09/09/18 10:04 Dose: 1 mg Heparin Sodium (Porcine) (Heparin -) 5,000 unit SQ BID [facility] Last Admin: 09/09/18 10:05 Dose: 5,000 unit Metoprolol Tartrate (Lopressor -) 12.5 mg PO BID [facility] Last Admin: 09/09/18 10:04 Dose: 12.5 mg Pantoprazole Sodium (Protonix -) 40 mg PO DAILY [facility] Last Admin: 09/09/18 10:04 Dose: 40 mg Tamsulosin HCl (Flomax -) 0.4 mg PO DAILY@0830 [facility] Last Admin: 09/09/18 10:04 Dose: 0.4 mg - Objective Vital Signs: Vital Signs Temperature 98.8 F 09/09/18 08:19 Pulse Rate 80 09/09/18 08:19 Respiratory Rate 20 09/09/18 08:19 Blood Pressure 114/52 L 09/09/18 08:19 O2 Sat by Pulse Oximetry (%) 98 09/09/18 08:19 Constitutional: Yes: Calm Cardiovascular: Yes: Regular Rate and Rhythm, S1, S2 Respiratory: Yes: CTA Bilaterally Gastrointestinal: Yes: Normal Bowel Sounds, Soft Labs: CBC, BMP 09/09/18 05:30 09/09/18 05:30 INR, PTT INR 1.28 (0.83-1.09) H 09/07/18 11:15 Problem List - Problems (1) CKD (chronic kidney disease) Assessment/Plan: creatinine is 1.0 Code(s): N18.9 - CHRONIC KIDNEY DISEASE, UNSPECIFIED (2) Sepsis Assessment/Plan: Microbiology 09/07/18 11:20 Blood - Peripheral Venous Blood Culture - Preliminary Staphylococcus Coagulase Neg repeat BC pending ID on board vancomycin Code(s): A41.9 - SEPSIS, UNSPECIFIED ORGANISM Qualifiers: Sepsis type: sepsis due to unspecified organism Qualified Code(s): A41.9 - Sepsis, unspecified organism (3) BPH (benign prostatic hyperplasia) Assessment/Plan: flomax Code(s): N40.0 - BENIGN PROSTATIC HYPERPLASIA WITHOUT LOWER URINRY TRACT SYMP (4) Anemia Assessment/Plan: iron panel pending trend cbc Code(s): D64.9 - ANEMIA, UNSPECIFIED
[2018-09-09 13:06] LABS: MAGNESIUM 1.8 mg/dL (1.8-2.4)
[2018-09-09] MEDS ORDERED: SODIUM CHLORIDE 1,000 ML IV SCH (13:15)
--- NOTE | 2018-09-09 14:14 | PN ---
Progress Note, Physician Chief Complaint: No palpitations or sob or chest pain sinus on tele with short 10 beat atrial run History of Present Illness: 88 year old male from [facility], with a pmhx of htn, hld, KOREY, gerd, colon CA s/ p resection, bph, hernia, and migraine with h/o descending aortic dissection with plan for possible intervention after treatment with antifungal. He presents with as per chart chest pain. When I spoke to patient he denies chest pain. Says he felt some irregular heart beats but no chest pain. Symptoms lasted minutes and than resolved. Denies any chest pain, sob, or palpitations since presentation. Echocardiogram 08/10/18: normal LV size, wall motion and systolic function, mild lad, no significant valve disease CXR: no chf or pna EKG: sinus rhythm at 98bpm, nl axis, nl st segments +Bld Cx and +UA with leukocytes - Current Medication List Current Medications: Active Medications Acetaminophen (Tylenol -) 650 mg PO Q4H PRN PRN Reason: FEVER Aspirin (Ecotrin -) 81 mg PO DAILY [facility] Last Admin: 09/09/18 10:04 Dose: 81 mg Cholecalciferol (Vitamin D3 -) 2,000 unit PO DAILY [facility] Last Admin: 09/09/18 10:03 Dose: 2,000 unit Docusate Sodium (Colace -) 200 mg PO DAILY [facility] Last Admin: 09/09/18 10:05 Dose: 200 mg Donepezil HCl (Aricept -) 5 mg PO HS [facility] Last Admin: 09/08/18 21:14 Dose: 5 mg Finasteride (Proscar -) 5 mg PO DAILY [facility] Last Admin: 09/09/18 10:03 Dose: 5 mg Folic Acid (Folic Acid -) 1 mg PO DAILY [facility] Last Admin: 09/09/18 10:04 Dose: 1 mg Heparin Sodium (Porcine) (Heparin -) 5,000 unit SQ BID [facility] Last Admin: 09/09/18 10:05 Dose: 5,000 unit Sodium Chloride (Normal Saline -) 1,000 mls @ 50 mls/hr IV ASDIR [facility] Stop: 09/10/18 13:12 Metoprolol Tartrate (Lopressor -) 12.5 mg PO BID [facility] Last Admin: 09/09/18 10:04 Dose: 12.5 mg Pantoprazole Sodium (Protonix -) 40 mg PO DAILY [facility] Last Admin: 09/09/18 10:04 Dose: 40 mg Tamsulosin HCl (Flomax -) 0.4 mg PO DAILY@0830 [facility] Last Admin: 09/09/18 10:04 Dose: 0.4 mg - Objective Vital Signs: Vital Signs Temperature 98.8 F 09/09/18 08:19 Pulse Rate 80 09/09/18 08:19 Respiratory Rate 20 09/09/18 08:19 Blood Pressure 114/52 L 09/09/18 08:19 O2 Sat by Pulse Oximetry (%) 98 09/09/18 08:19 Constitutional: Yes: No Distress Neck: Yes: Supple Cardiovascular: Yes: Regular Rate and Rhythm, S1, S2. No: Murmur Respiratory: Yes: CTA Bilaterally Gastrointestinal: Yes: Soft Edema: No Labs: CBC, BMP 09/09/18 05:30 09/09/18 05:30 INR, PTT INR 1.28 (0.83-1.09) H 09/07/18 11:15 Assessment/Plan 88 year old male from formerly [facility], with a pmhx of htn, hld, KOREY, gerd, colon CA s/ p resection, bph, hernia, and migraine with h/o descending aortic dissection with plan for possible intervention after treatment with antifungal. He presents with as per chart chest pain. When I spoke to patient he denies chest pain. Says he felt some irregular heart beats but no chest pain. Symptoms lasted minutes and than resolved. Denies any chest pain, sob, or palpitations since presentation. Echocardiogram 08/10/18: normal LV size, wall motion and systolic function, mild lad, no significant valve disease CXR: no chf or pna EKG: sinus rhythm at 98bpm, nl axis, nl st segments +Bld Cx and +UA with leukocytes 1) Cardiac -No ekg changes. Negative cardiac enzymes. Echo last month unremarkable -Atypical symptoms -Tele uneventful with sinus rhythm with pac's and 10 beat atrial run Dehydrated on labs and s/p IVF's F/u with ID regarding need for Abx and results of his Bld Cultures No further cardiac testing at this time. Can DC telemetry Will sign off
[2018-09-09 14:49] VITALS: BMI 19.0
[2018-09-09] MEDS: DONEPEZIL HCL 5 MG TABLET (FP) PO SCH (22:33)
[2018-09-10 04:12] LABS: SERUM IRON SATURATION 16 % (15-55); TOTAL IRON BINDING CAPACITY 100 ug/dL (250-450); UIBC 84 ug/dL (111-343)
[2018-09-10 07:42] LABS: BASO % 0.5 % (0-2.0); EOS % 2.1 % (0-4.5); HEMOGLOBIN 9.6 GM/dL (11.7-16.9); LYMPH % 20.8 % (8-40); MCHC 33.2 g/dl (32.0-35.9); MEAN CELL VOLUME 87.2 fl (80-96); MEAN PLT VOLUME 8.6 fl (7.5-11.1); MONO % 4.9 % (3.8-10.2); NEUT % 71.7 % (42.8-82.8); PLATELET COUNT 221 K/MM3 (134-434); RBC 3.33 M/mm3 (4.00-5.60); RDW 15.8 % (11.9-15.9); WHITE BLOOD COUNT 6.3 K/mm3 (4.0-10.0)
[2018-09-10 08:05] LABS: ALBUMIN 1.8 g/dl (3.4-5.0); ALK PHOS 67 U/L (45-117); ANION GAP 5 MMOL/L (8-16); BILIRUBIN,TOTAL 0.7 mg/dL (0.2-1); BLOOD UREA NITROGEN 32 mg/dL (7-18); CALCIUM 7.9 mg/dL (8.5-10.1); CHLORIDE 106 mmol/L (98-107); CO2 29 mmol/L (21-32); CREATININE 1.1 mg/dL (0.55-1.3); GLUCOSE,RANDOM 103 mg/dL (74-106); POTASSIUM 4.7 mmol/L (3.5-5.1); SGOT/AST 358 U/L (15-37); SGPT/ALT 97 U/L (13-61); SODIUM 140 mmol/L (136-145); TOT PROT 5.4 g/dl (6.4-8.2)
--- NOTE | 2018-09-10 10:13 | PN ---
Progress Note (short form) - Note Progress Note: no complaints Vital Signs Period Temp Pulse Resp BP Sys/Scott Pulse Ox Last 24 Hr 97.7 F-99.2 F 85-107 20-20 106-145/47-77 99-99 cor-rrr lungs clear abd soft,nt ext no edema +vazquez CBC, BMP 09/10/18 07:08 09/10/18 07:08 Microbiology 09/08/18 12:40 Blood - Peripheral Venous Blood Culture - Preliminary NO GROWTH OBTAINED AFTER 24 HOURS, INCUBATION TO CONTINUE FOR 4 DAYS. 09/08/18 12:30 Blood - Peripheral Venous Blood Culture - Preliminary NO GROWTH OBTAINED AFTER 24 HOURS, INCUBATION TO CONTINUE FOR 4 DAYS. 09/07/18 11:15 Blood - Peripheral Venous Blood Culture - Preliminary NO GROWTH OBTAINED AFTER 48 HOURS, INCUBATION TO CONTINUE FOR 3 DAYS. 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 recent mia blood stream infection-no uptake at dissection site-completed at least 4 weeks antifungal treatment type B aortic dissection HTN
[2018-09-10] MEDS: FOLIC ACID 1 MG TABLET (FP) PO SCH (10:55)
[2018-09-10] MEDS: TAMSULOSIN HCL 0.4 MG CAP PO SCH (10:55)
[2018-09-10] MEDS: HEPARIN NA (PORCINE) 5,000 UNITS/ML 1ML VIAL SQ SCH ×2 (10:55→21:20)
[2018-09-10] MEDS: CHOLECALCIFEROL (VITAMIN D3) 1,000 UNIT TABLET (FP) PO SCH (10:55)
[2018-09-10] MEDS: FINASTERIDE 5 MG TABLET (FP) PO SCH (10:55)
[2018-09-10] MEDS: METOPROLOL TARTRATE 25 MG TABLET (FP) PO SCH ×2 (10:55→21:20)
[2018-09-10] MEDS: ASPIRIN COATED 81 MG TABLET.EC PO SCH (10:56)
[2018-09-10] MEDS: DOCUSATE SODIUM 100 MG CAPSULE (FP) PO SCH (10:56)
[2018-09-10] MEDS: PANTOPRAZOLE 40 MG TABLET (FP) PO SCH (10:56)
--- NOTE | 2018-09-10 13:00 | DS ---
Physical Examination Vital Signs: Vital Signs Temperature 98.1 F 09/10/18 10:00 Pulse Rate 89 09/10/18 10:00 Respiratory Rate 18 09/10/18 10:00 Blood Pressure 141/70 09/10/18 10:00 O2 Sat by Pulse Oximetry (%) 99 09/10/18 10:00 Constitutional: Yes: Calm, Thin Cardiovascular: Yes: Regular Rate and Rhythm, S1, S2 Respiratory: Yes: CTA Bilaterally Gastrointestinal: Yes: Normal Bowel Sounds, Soft Labs: CBC, BMP 09/10/18 07:08 09/10/18 07:08 Discharge Summary Reason For Visit: ACUTE KIDNEY INJURY UTI SEPSIS Current Active Problems Abnormal radionuclide scan (Acute) Bacteremia (Acute) CKD (chronic kidney disease) (Acute) Sepsis (Acute) Hospital Course: PCP: Reynaldo Lynch - Admission Chief Complaint: Chest pain History of Present Illness: Patient is an 88 y/o male with past medical history of aortic dissection, CAD s/ p stent, Metastatic colon CA with resection, HTN, HLD, BPH, DM, GERD, Hernia, Migraine, Headache, Dysphagia. Patient presented to ER from [facility] after experiencing L sided chest discomfort which began last night. Patient states pain was non-radiating and nothing particularly exacerbated or relieved the pain. Patient denied shortness of breath or dyspnea with chest discomfort. Patient states also having L sided rib pain after doing exercises in the [facility]. In ER noted with rectal temp 100.3F and UA positive for 1+ leukocytes, 3+ blood, 1+ protein in hospital one positive blood closure staph epidermidis, and the repeat BC negative soft ct scan of neck shows right maxilla dental hardware with osteolytic changes seen and air pocket suggestive of osteomyltits called [facility] trasnfer to the hosital service telemetry bed to have facial surery see patient Condition: Guarded - Instructions Disposition: TRANSFER ACUTE CARE/OTHER HOSP - Home Medications Comprehensive Discharge Medication List: Ambulatory Orders Aa/Hydrolyzed Collagen, Whey [Lps Neutral Flavor Liquid] 30 ml PO BID 09/07/18 Acetaminophen 650 mg PO Q6H 09/07/18 Aspirin [ASA -] 81 mg PO DAILY 09/07/18 Bismuth Tribromoph/Petrolatum [Xeroform Petrolatum Dress] 1 each TP DAILY Cholecalciferol (Vitamin D3) [Vitamin D3] 2,000 unit PO DAILY 09/07/18 Docusate Sodium [Colace] 200 mg PO HS 09/07/18 Donepezil HCl [Aricept -] 5 mg PO HS 09/07/18 Finasteride 5 mg PO HS 09/07/18 Folic Acid - 1 mg PO DAILY 09/07/18 Metoprolol Tartrate 25 mg PO BID 09/07/18 Omeprazole 40 mg PO DAILY 09/07/18 Simvastatin 40 mg PO HS 09/07/18 Tamsulosin HCl 0.4 mg PO HS 09/07/18
--- NOTE | 2018-09-10 13:04 | PN ---
Progress Note (short form) - Note Progress Note: [facility] trser center- spoke to dr LATOYA hoskins and accpeted pateint for trasnfer to med/tele bed facial surgery will see patient at the facility Problem List - Problems (1) CKD (chronic kidney disease) Code(s): N18.9 - CHRONIC KIDNEY DISEASE, UNSPECIFIED (2) Sepsis Code(s): A41.9 - SEPSIS, UNSPECIFIED ORGANISM Qualifiers: Sepsis type: sepsis due to unspecified organism Qualified Code(s): A41.9 - Sepsis, unspecified organism (3) BPH (benign prostatic hyperplasia) Code(s): N40.0 - BENIGN PROSTATIC HYPERPLASIA WITHOUT LOWER URINRY TRACT SYMP (4) Anemia Code(s): D64.9 - ANEMIA, UNSPECIFIED
[2018-09-10] MEDS: DONEPEZIL HCL 5 MG TABLET (FP) PO SCH (21:20)
[2018-09-10 21:36] VITALS: BP 130/66; PULSE 93; TEMP 97.5
== END 2018-09-10 22:49 | disposition short-term general hospital (02) | DRG 872 ==
LOC: JER 09:43 → JERBED 12:46 → J4W 18:07
PROVIDERS: ADMIT Family Medicine; ATTEND Family Medicine
DX: A41.1 Sepsis due to other specified staphylococcus (principal); N39.0 Urinary tract infection, site not specified; R64 Cachexia; N17.9 Acute kidney failure, unspecified; I12.9 Hypertensive chronic kidney disease with stage 1 through stage 4 chronic kidney disease, or unspecified chronic kidney disease; N18.9 Chronic kidney disease, unspecified; N40.0 Benign prostatic hyperplasia without lower urinary tract symptoms; E86.0 Dehydration; Z68.20 Body mass index [BMI] 20.0-20.9, adult; I48.91 Unspecified atrial fibrillation; D64.9 Anemia, unspecified; I25.10 Atherosclerotic heart disease of native coronary artery without angina pectoris; Z95.5 Presence of coronary angioplasty implant and graft; Z85.038 Personal history of other malignant neoplasm of large intestine; E78.5 Hyperlipidemia, unspecified; K21.9 Gastro-esophageal reflux disease without esophagitis; R13.10 Dysphagia, unspecified; Z87.891 Personal history of nicotine dependence
CPT/HCPCS: 36415; 70491-TC; 71045-TC-FY; 80048; 80053; 81003; 82550; 82553; 82607; 82728; 82746; 82962; 83540; 83550; 83605; 83615; 83735; 84100; 84436; 84443; 84484; 85025; 85044; 85610; 85730; 87040; 87086; 87186; 93005; 93010; 97161-GP; 99285-25; G0480; J0131; J1644; J7030

== ENCOUNTER 2018-11-05 15:31 | Inpatient (IN) | payer OTHER, BC | END 2018-11-11 16:43 | LOC: JER 15:31 → JERBED 18:38 → J7W 20:16 ==

== ENCOUNTER 2019-01-03 22:25 | Inpatient (IN) | payer OTHER, BC | END 2019-01-06 14:28 | LOC: JER 22:25 → JERBED 01-04 05:07 → J5S 01-04 12:18 ==